=== PATIENT | female | born 1995 | race Caucasian/White ===

== ENCOUNTER 2019-05-24 16:07 | Emergency (ER) | payer OTHER, SELFPAY ==
[2019-05-24 16:10] VITALS: BP 150/90; PULSE 89; RESP 18; TEMP 36.2; O2SAT 100
--- NOTE | 2019-05-24 16:43 | ED.GENADULT ---
HPI - General Adult General Chief complaint: Skin/Abscess/Foreign Body Stated complaint: ?possible cyst Time Seen by Provider: 05/24/19 16:09 Source: patient Mode of arrival: ambulatory Limitations: no limitations History of Present Illness HPI narrative: Patient is a 23-year-old female who presents to emergency department for evaluation of wound to the labia patient notes she has had similar occurrence in the past requiring I&D patient denies any fever chills nausea vomiting or URI symptoms patient notes moderate aching pain worse with touch and activity has not been seen for this complaint and 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 GASTROINTESTINAL: Denies nausea, vomiting SKIN: Positive for labial wound MUSCULOSKELETAL: Denies back pain, or myalgia. PMFSH Social History Social History (Updated 05/24/19 @ 16:45 by Raimundo Catalan PA-C) Smoking status: Former smoker Exam Narrative: Exam Narrative: GENERAL: Well-appearing, well-nourished, and in no acute distress. HEAD: Normocephalic, atraumatic. SKIN: Warm, dry, no rash. Patient with half centimeter labial abscess without erythema or swelling noted labial abscesses on the left in the labia majora NEURO: No focal deficits. Alert and oriented x3. Cranial nerves II through XII grossly intact PSYCH: Normal mood and affect. Course Course Emergency Course: Patient in the room in no distress aware of case findings treatment plan and diagnosis Vital Signs Vital signs: Vital Signs Temperature 97.2 F L 05/24/19 16:10 Pulse Rate 89 05/24/19 16:10 Respiratory Rate 18 05/24/19 16:10 Blood Pressure 150/90 H 05/24/19 16:10 Pulse Oximetry 100 05/24/19 16:10 Temperature 97.2 F L 05/24/19 16:10 Pulse Rate 89 05/24/19 16:10 Respiratory Rate 18 05/24/19 16:10 Blood Pressure 150/90 H 05/24/19 16:10 Pulse Oximetry 100 05/24/19 16:10 Procedures Abscess I/D skin: Date of Incision: 05/24/19 Time of Incision: 16:50 Side (if applicable): left Local Anesthetic: lidocaine 1% Technique: other Irrigation: No Packing used?: iodoform I&D Results: Pus and Blood Complications: pain Medical Decision Making MDM Narrative Medical decision making narrative: Patient had I&D in the room in no distress felt appropriate for outpatient reevaluation Vital Signs Vital Signs: Vital Signs Temperature 97.2 F L 05/24/19 16:10 Pulse Rate 89 05/24/19 16:10 Respiratory Rate 18 05/24/19 16:10 Blood Pressure 150/90 H 05/24/19 16:10 Pulse Oximetry 100 05/24/19 16:10 Temperature 97.2 F L 05/24/19 16:10 Pulse Rate 89 05/24/19 16:10 Respiratory Rate 18 05/24/19 16:10 Blood Pressure 150/90 H 05/24/19 16:10 Pulse Oximetry 100 05/24/19 16:10 Discharge Plan Discharge Clinical Impression: Abscess Patient Disposition: Home, Self-Care Condition: Stable Instructions: Antibiotic Form, Abscess (ED) Additional Instructions: Follow up with primary care in the next 3-5 days for re-evaluation return if symptoms worsen or concerns, any increase in redness swelling pain or fever over 100.5 If packing was placed it must come out in 3 days. Clean wound with mild soapy water. Apply antibiotic ointment and clean dressing at least three times daily Warm compresses 5 times a day for 15 minutes each Prescriptions: New doxycycline hyclate 100 mg capsule 100 mg PO Q12H 7 Days Qty: 14 RF: 0 Follow-up/Referrals: Godwin Reyes MD [Primary Care Provider] -
== END 2019-05-24 17:26 | disposition home or self-care (01) ==
PROVIDERS: Emergency Provider Emergency Medicine; PCP Emergency Medicine
DX: N76.4 Abscess of vulva (principal)
CPT/HCPCS: 56405; 99283; A9270

== ENCOUNTER 2019-05-27 12:41 | Emergency (ER) | payer OTHER, SELFPAY ==
--- NOTE | 2019-05-27 12:49 | ED.GENADULT ---
HPI - General Adult General Chief complaint: Urogenital-Female Stated complaint: cyst on vaginal Time Seen by Provider: 05/27/19 12:45 Source: patient Mode of arrival: ambulatory Limitations: no limitations History of Present Illness HPI narrative: Pt was seen here on 05/23 for bartholin gland cyst. I/D was preformed, no packing placed and pt was started Doxycycline and instructed to follow up with gynecology. The cyst has reaccumulated and is quite painful. She states she was instructed by office to go to ED, that they may not be able to drain in office. Unclear if she spoke with provider. She has no fever. This is the 3rd time she has had an abscess/cyst. Onset (ago): day(s) (3) Location: genitals (labial cyst) Relieving factors: none Exacerbating factors: none Associated symptoms: denies other symptoms Related Data Allergies Allergy/AdvReac Type Severity Reaction Status Date / Time aspirin Allergy Intermediate Rash Verified 05/27/19 13:32 Review of Systems Review of Systems: All systems reviewed & are unremarkable except as noted in HPI and below [facility] Past Medical History Medical History (Updated 05/27/19 @ 14:52 by Jeannette Diehl PA-C) Bartholin cyst Social History Social History Smoking status: Former smoker Exam Const: General: no acute distress and alert Orientation/consciousness: patient oriented x3 Eyes: Pupils: Equal, round and reactive pupils present Resp: Effort & Inspection: normal respiratory effort Cardio: Rate: regular rate Rhythm: regular rhythm GI: GI Palp: Yes Soft to palpation : External Female Exam: lesion (approx 1.5 -2 cm left labia major bartholin gland abscess) Skin: General skin exam: normal color Rashes: no rashes Neuro: General: patient oriented x3 and moves all extremities Extrem: General: normal to inspection Psych: Mental Status: mental status grossly normal Course Course Emergency Course: Patient is very tearful and anxious about this procedure. We were able to express small to moderate amount of pus and blood from the abscess. I was unable to pack it with iodoform gauze. Instructed the patient to do 20 minutes sitz bath's 4 times a day cover the area with antibiotic ointment. And follow-up with Dr. Zacarias's office. I spoke to the office they are able to see her on May 29 at 215. Procedures Abscess I/D bartholin's gland: Date of Incision: 05/27/19 Time of Incision: 14:02 Side (if applicable): left Sedation/analgesia: other (norco 5/325) Local Anesthetic: lidocaine 1% Amount of anesthesia used (mL): 1 Technique: incised with #11 blade Amount of fluid expressed (mL): 0.5 Packing used?: none I&D Results: Pus and Blood Complications: pain Abcess I&D Additional Comments: attempted to pack with 1/4 iodoform but unsuccessful. Warm soak applied and was able to express a small amount after. Discharge Plan Discharge Clinical Impression: Abscess of left Bartholin's gland Patient Disposition: Home, Self-Care Condition: Stable Instructions: Antibiotic Form, Bartholin Cyst (ED) Additional Instructions: Apply warm soaks with your sit in your tub in warm water 20 minutes, 3-4 times a day. After that apply antibiotic ointment to the site. Complete your antibiotics as prescribed. Take pain medication as needed. Follow-up with Dr. Zacarias's office on May 29 at 2:15 PM. Prescriptions: No Action doxycycline hyclate 100 mg capsule 100 mg PO Q12H 7 Days Qty: 14 RF: 0 Follow-up/Referrals: Godwin Reyes MD [Primary Care Provider] - Time of Disposition: 14:52
[2019-05-27 12:57] VITALS: BP 158/91; PULSE 118; RESP 18; O2SAT 100
[2019-05-27 13:34] VITALS: BP 136/91; PULSE 130; RESP 16; O2SAT 100
[2019-05-27] MEDS: LIDOCAINE HCL 1% LOCAL INJ 20 ML VIAL 10 ML INFILTRATE (13:39)
--- NOTE | 2019-05-27 14:01 | PC.NURSE ---
RN assisted PA with vaginal cyst drainage. VSS. Pt tolerated well.
[2019-05-27 15:23] VITALS: BP 143/91; PULSE 100; RESP 18; TEMP 36.9; O2SAT 97
== END 2019-05-27 15:25 | disposition home or self-care (01) ==
PROVIDERS: Emergency Provider Emergency Medicine; PCP Emergency Medicine
DX: N75.1 Abscess of Bartholin's gland (principal); Z87.891 Personal history of nicotine dependence
CPT/HCPCS: 56420; 99283; A9270

== ENCOUNTER → 2020-09-08 02:20 | Outpatient (CLI) | payer SELFPAY ==
[2020-09-08 16:16] LABS: SARS-CoV-2 RNA PCR Negative
== END ==
PROVIDERS: PCP Emergency Medicine; Visit Provider Obstetrics & Gynecology
DX: Z01.812 Encounter for preprocedural laboratory examination (principal); Z20.822 Contact with and (suspected) exposure to COVID-19
CPT/HCPCS: C9803; U0003; U0005

== ENCOUNTER 2020-09-11 00:43 | Day surgery (SDC) | payer OTHER, SELFPAY ==
[2020-09-03 16:39] VITALS: BMI 41.5
--- NOTE | 2020-09-09 07:23 | PM.IMHP ---
H&P: HPI History of Present Illness Date/Time: 09/09/20 07:23 24-year-old 0 admitted for hysteroscopy / dilatation curettage. She complains of excessive heavy bleeding. She underwent ultrasound which showed irregularity of the uterus. Risks and benefits reviewed including but not exclusive of , aspiration pneumonia, bleeding, transfusion, perforation injury with injury to bowel, bladder, etc. She received the ACOG handout entitled hysteroscopy and dilatation and curettage respectively. She had all questions answered and asked to proceed Chief Complaint: excessive heavy bleeding Review of Systems Review of Systems: All systems reviewed & are unremarkable except as noted in HPI and below PMFSH Past Medical History Medical History Bartholin cyst Social History Social History Years smoked: 4 Smoking status: Former smoker Tobacco type: cigarettes Alcohol intake: current Drinks per week: 11 Substance use: never Substance use type: does not use Last use: mar 2020 Gender identity (if verbalized by the patient): Female Spiritual care concerns: No Meds Home Medications and Allergies Home Medications Medication Instructions Recorded Confirmed Type doxycycline hyclate 100 mg PO Q12H 7 Days #14 cap 05/24/19 Rx Women's One Daily 2 tab-cap BYMOUTH DAILY 09/03/20 09/03/20 History ferrous sulfate 325 mg PO 09/03/20 History liraglutide (weight loss) [Saxenda] 3 mg SUBCUT DAILY 09/03/20 09/03/20 History Allergies Allergy/AdvReac Type Severity Reaction Status Date / Time aspirin Allergy Intermediate Rash Verified 09/03/20 16:09 Exam Const: General: no acute distress Eyes: General: appearance normal, both eyes and all related structures Neck: Neck: supple and no JVD Thyroid: thyroid normal Resp: Effort & Inspection: normal respiratory effort Auscultation: clear to auscultation bilaterally Cardio: Rate: regular rate Rhythm: regular rhythm GI: Inspection: non-distended GI Palp: Yes Soft to palpation, No Tenderness to palpation present (GI) and No Guarding due to palpation present (GI) Auscultation: normal bowel sounds : General: Yes bladder normal to palpation External Female Exam: normal external appearance Speculum Exam - Vagina: normal vaginal discharge and No vaginal bleeding Speculum Exam - Cervix: nontender Bimanual exam- vagina & uterus: bladder normal to palpation and No Cervical tenderness present OB/external & speculum: No vaginal bleeding Skin: General skin exam: no rashes or lesions noted Extrem: General: normal to inspection and no edema Psych: Mental Status: mental status grossly normal Affect: normal affect Assessment and Plan Additional Plan impression: Bleeding refractory to medical therapy Plan: Hysteroscopy/ dilatation curettage/polypectomy
--- NOTE | 2020-09-11 05:46 | WPDHPUPDATE1 ---
History and Physical Update Update Date/Time: 09/11/20 05:46 History and Physical has been reviewed, including an updated exam of the patient. There are NO changes in the patient's condition. Risks, benefits, and alternatives have been discussed and questions answered. Patient agrees to proceed with procedure.
[2020-09-11 08:37] VITALS: BP 132/74; PULSE 109; RESP 16; TEMP 37.4; O2SAT 99
[2020-09-11] MEDS: ACETAMINOPHEN 500 MG TABLET 1000 MG PO (08:50)
--- NOTE | 2020-09-11 09:07 | WPDANESEPPF ---
Anes - Initial Pre Proc Eval Procedure: Operation Date: 09/11/20 10:30 Proposed Procedures p Hysteroscopy, Dilation and Curettage, with Polypectomy - Bharath Santoro MD Date/Time: 09/11/20 09:07 Surgeon: Bharath Santoro MD Pre Op Diagnosis: uterine polyp, irregular bleeding Patient Data Age: 24 Gender: F Height: 1.55 m Weight: 97.7 kg Last Vital Signs Temp 37.4 C 09/11/20 08:37 Pulse 109 H 09/11/20 08:37 Resp 16 09/11/20 08:37 BP 132/74 09/11/20 08:37 Pulse Ox 99 09/11/20 08:37 Allergies Allergy/AdvReac Type Severity Reaction Status Date / Time aspirin Allergy Intermediate Rash Verified 09/11/20 08:46 Home Medications Medication Instructions Recorded Confirmed Type doxycycline hyclate 100 mg PO Q12H 7 Days #14 cap 05/24/19 09/11/20 Rx Women's One Daily 2 tab-cap BYMOUTH DAILY 09/03/20 09/11/20 History ferrous sulfate 325 mg PO DAILY 09/03/20 09/11/20 History liraglutide (weight loss) [Saxenda] 3 mg SUBCUT DAILY 09/03/20 09/11/20 History amlodipine 5 mg PO HS 09/11/20 09/11/20 History hydrocodone-acetaminophen 1 tablet PO Q4H PRN #30 tablet 09/11/20 Rx ibuprofen 400 mg PO Q6H 09/11/20 09/11/20 History Patient hx anesthesia problems: none Family hx anesthesia problems: none [facility] Past Medical History Medical History (Updated 09/11/20 @ 09:08 by Bharath Nowak MD) Bartholin cyst HTN (hypertension) Morbid obesity Social History Social History Years smoked: 4 Smoking status: Former smoker Tobacco type: cigarettes Alcohol intake: current Drinks per week: 11 Substance use: never Substance use type: does not use Last use: mar 2020 Living arrangements: with roommate(s) Gender identity (if verbalized by the patient): Female Sexual Orientation (if Verbalized by the Patient): Straight or Heterosexual Spiritual care concerns: No Anes - Eval Final PreProcedure Day of Procedure 09/11/20 09:07 Patient weight: morbidly obese Heart: regular rate and rhythm Lungs: clear to auscultation Airway: Mallampati scale class II Neurological: alert and oriented Last oral intake: >/= 8 hours ASA classification: III Emergent: no Anesthetic plan: proceed Anesthesia type and monitoring: general GIVS and standard monitoring Informed Consent: The patient's anesthetic plan and its attendant risks and benefits were discussed with the patient/family/POA. Questions were solicited and answers provided to the satisfaction of the patient/family/POA.
[2020-09-11] MEDS: LACTATED RINGERS 1,000 ML 30 ML IV CONT (09:09)
[2020-09-11 09:30] LABS: Hemoglobin 14.4 g/dL (12.0-15.0)
[2020-09-11] MEDS: KETOROLAC 30 MG/ML VIAL (*BKC) IV PUSH (11:02)
--- NOTE | 2020-09-11 11:14 | P.OP_ITS ---
Procedure Note - Detailed Date of Procedure 09/11/20 Pre-op Diagnosis uterine polyp, irregular bleeding Post-op Diagnosis same Procedure Performed Hysteroscopy / dilatation curettage/S polypectomy Surgeon Bharath Santoro MD Anesthesia MAC and local Indications S a 24-year-old female with excessive heavy bleeding with suspected uterine polyp Findings uterus sounded to 7cm. A benign-appearing endometrial polyp Description of Procedure patient was prepped draped in the normal sterile fashion and placed in the dorsal lithotomy position. Under excellent IV sedation weighted speculum placed in posterior fornix vagina. Anterior lip of the cervix grasped with single- tooth tenaculum and 2.5cc of 1% xylocaine anesthesia placed at 2, 4, 8, 10:00 a.m. of the cervix. Uterus sounded to 7cm. Serial dilatation with fragmented dilators performed followed by passage of the 5mm visualizing hysteroscope. Normal saline was used as visualizing medium. Small uterine polyp was seen and this was grasped and with a polyp forceps and removed without difficulty. The uterine cavity appeared within normal limits. The uterus was scraped over the entire 360? until a good grating sound was heard. The instruments removed and the patient awakened. Blood loss estimated at5cc. All sponge, needle, instrument counts were correct. There were no immediate complications Estimated Blood Loss 5 Drains No Packing No Pathology yes Complications No immediate complications Condition stable Disposition PACU
[2020-09-11 11:17] VITALS: BP 107/71; PULSE 95; RESP 16; O2SAT 99
[2020-09-11 11:45] VITALS: BP 132/75; PULSE 81; RESP 16
[2020-09-11 12:00] VITALS: BP 117/69; PULSE 80; RESP 14
== END 2020-09-11 12:06 | disposition home or self-care (01) ==
PROVIDERS: PCP Nurse Practitioner Family; Visit Provider Obstetrics & Gynecology
PROC: 0U5B8ZZ Destruction of Endometrium, Via Natural or Artificial Opening Endoscopic (ICD-10-PCS; CPT 58563; principal; 2020-09-11 10:30)
DX: N92.0 Excessive and frequent menstruation with regular cycle (principal); N84.0 Polyp of corpus uteri; I10 Essential (primary) hypertension; Z87.891 Personal history of nicotine dependence; E66.01 Morbid (severe) obesity due to excess calories; Z68.41 Body mass index [BMI] 40.0-44.9, adult
CPT/HCPCS: 58558; 36415; 85014; 85018; 88305; A9270; J1885; J2250; J2405; J2704; J3010; J7030; J7120

== ENCOUNTER 2021-09-29 07:48 | Outpatient (CLI) | payer BC, SELFPAY | END 2021-09-29 07:49 | disposition home or self-care (01) | LOC: ANHSURGERY 07:52 | PROVIDERS: PCP Nurse Practitioner Family; Visit Provider Obstetrics & Gynecology | DX: Z01.812 Encounter for preprocedural laboratory examination (principal); R10.2 Pelvic and perineal pain | CPT/HCPCS: 36415; 86850; 86900; 86901 ==

== ENCOUNTER 2021-10-01 01:33 | Day surgery (SDC) | payer BC, SELFPAY ==
[2021-09-24 15:28] VITALS: BMI 27.6
--- NOTE | 2021-09-24 15:47 | SUR.PREOP ---
Report to the Outpatient Waiting Room, entrance under the green pavilion located off [facility], at time 0600__ on date 10/01/21 . OR Time: _0730 - You and your visitor will be asked a series of questions to screen for COVID 19 for your protection. - Only one visitor is allowed at this time. - The patient visitor is requested to leave or wait in car when not with patient. - A mask is required within the hospital. Patients may have clear liquids (water, carbonated beverages, clear teas, apple juice) until 3 hours prior to surgery with a maximum of 20 ounces. - No food from midnight until time of surgery - Infants may have breast milk until 4 hours before surgery, infant formula 6 hours prior to surgery. - Children will be allowed to drink immediately following surgery. If applicable, please bring a bottle or sippy cup to assist with drinking. Juice, water, soda, and popsicles are readily available. For infants on formula, please bring formula the day of surgery. Pacifiers are allowed. Take the following medications with a SIP of water the morning of surgery: __n/a Medications to discontinue per physician n/a Date to take last dose____n/a Please no make-up, nail nigerien, hairspray, perfume, deodorant, or body powder the day of surgery. No jewelry (including any body piercings) or valuables the day of surgery, leave them at home. Please take a shower or bath the night before, or the morning of, surgery with an antibacterial soap. Wear comfortable, loose fitting clothing. Children are encouraged to wear pajamas. - Jewelry must be removed prior to entering the operating room. Rings and piercings that are not removed may be cut off. - The hospital will not accept responsibility for valuables. - Please leave all valuables, including medications, at home the day of surgery. If you are going home after surgery, a licensed trash truck driver must drive you home. - NO public transportation without another adult. - We recommend that an adult stay with you for 24 hours following discharge. - We also recommend that you do not drive, make important decision, drink alcoholic beverages, or take any drugs that were not prescribed by your health care provider for at least 24 hours after your discharge time. For Pediatric surgeries, we recommend two adults accompany the child home (only one inside the building at this time). Follow any additional instructions given to you from your surgeon. If you or anyone in your household have experienced Covid symptoms in the past week, please notify your surgeon or the nurse liaison at the phone number below for possible testing. Telephone instructions given to _fabien vergara and asked if any additional questions and then verbalized understanding. Patient advised to call surgeon office or pre surgery nurse liaison [phone] if any additional questions.
--- NOTE | 2021-09-29 06:49 | PM.IMHP ---
H&P: HPI History of Present Illness Date/Time: 09/29/21 06:49 Chief Complaint: Pelvic pain. Narrative: A 25-year-old female admitted for diagnostic laparoscopy secondary to severe pelvic pain. She is treated with antibiotics and hormone manipulation but continues to have severe pain. Ultrasound was unhelpful. Risks and benefits reviewed including but not exclusive of , aspiration pneumonia, bleeding, transfusion, perforation injury to bowel, bladder, ureters, or other internal organs with the need for open laparotomy she received the ACOG handout entitled laparoscopy. She had all questions answered. She asked to proceed PMFSH Past Medical History Medical History Bartholin cyst HTN (hypertension) Morbid obesity Social History Social History Years smoked: 4 Smoking status: Former smoker Tobacco type: cigarettes Smoking end date: 03/06/20 Additional smoking assessment comments: / ppd x 7 years Alcohol intake: current Drinks per week: 6 Alcohol use details: weekends Substance use: current Substance use type: marijuana Other substance usage details: smoking occasionally Last use: mar 2020 Gender identity (if verbalized by the patient): Female Sexual Orientation (if Verbalized by the Patient): Straight or Heterosexual Spiritual care concerns: No Meds Home Medications and Allergies Home Medications Medication Instructions Recorded Confirmed Type liraglutide (weight loss) 3 mg/0.5 3 mg subcut DAILY 09/03/20 09/24/21 History mL (18 mg/3 mL) subcut pen injector (Saxenda) amlodipine 5 mg tablet 10 mg PO HS 09/11/20 09/24/21 History ibuprofen 400 mg tablet 400 mg PO PRN 09/11/20 09/24/21 History Allergies Allergy/AdvReac Type Severity Reaction Status Date / Time No Known Allergies Allergy Verified 09/24/21 15:05 Exam : Speculum Exam - Cervix: normal appearance of the cervix Bimanual exam- vagina & uterus: Cervical tenderness present and Uterine tenderness Assessment and Plan Assessment and plan (1) Pelvic pain: Code(s): R10.2 - Pelvic and perineal pain Status: Acute Plan diagnostic laparoscopy
[2021-10-01] VITALS (8 sets, daily range): BP systolic 112–120; BP diastolic 60–74; PULSE 82–103; RESP 13–18; TEMP 36.5–37.3; O2SAT 100
[2021-10-01] MEDS: ACETAMINOPHEN 500 MG TABLET 1000 MG PO (06:23)
[2021-10-01] MEDS: LACTATED RINGERS 1,000 ML 30 ML IV CONT ×2 (06:30→07:56)
--- NOTE | 2021-10-01 06:41 | WPDHPUPDATE1 ---
History and Physical Update Update Date/Time: 10/01/21 06:41 History and Physical has been reviewed, including an updated exam of the patient. There are NO changes in the patient's condition. Risks, benefits, and alternatives have been discussed and questions answered. Patient agrees to proceed with procedure.
--- NOTE | 2021-10-01 06:45 | WPDANESEPPF ---
Anes - Initial Pre Proc Eval Procedure: Operation Date: 10/01/21 07:30 Proposed Procedures p Diagnostic Laparoscopy, Incisional and Drainage Bartholin Cyst - Bharath Beach MD Date/Time: 10/01/21 06:45 Surgeon: Bharath Beach MD Pre Op Diagnosis: pelvic pain Patient Data Age: 25 Gender: F Height: 1.55 m Weight: 69.9 kg Last Vital Signs Temp 37.3 C 10/01/21 06:37 Pulse 103 H 10/01/21 06:37 Resp 16 10/01/21 06:37 BP 120/67 10/01/21 06:37 Pulse Ox 100 10/01/21 06:37 O2 Del Method Room Air 10/01/21 06:37 Allergies Allergy/AdvReac Type Severity Reaction Status Date / Time No Known Allergies Allergy Verified 10/01/21 06:15 Home Medications Medication Instructions Recorded Confirmed Type liraglutide (weight loss) 3 mg/0.5 3 mg subcut DAILY 09/03/20 10/01/21 History mL (18 mg/3 mL) subcut pen injector (Saxenda) amlodipine 5 mg tablet 10 mg PO HS 09/11/20 10/01/21 History ibuprofen 400 mg tablet 400 mg PO PRN 09/11/20 10/01/21 History hydrocodone 5 mg-acetaminophen 325 1 tablet PO Q4H PRN pain #30 tabs 10/01/21 Rx mg tablet Patient hx anesthesia problems: none Family hx anesthesia problems: none Results Review: All pre-operative results and documents have been reviewed as part of the pre-operative evaluation. [facility] Past Medical History Medical History (Updated 10/01/21 @ 06:46 by Bharath Nowak MD) Bartholin cyst HTN (hypertension) Overweight Surgical History Surgical History (Updated 10/01/21 @ 06:46 by Bharath Nowak MD) History of D&C Social History Social History Years smoked: 4 Smoking status: Former smoker Tobacco type: cigarettes Smoking end date: 03/06/20 Additional smoking assessment comments: 03/09 ppd x 7 years Alcohol intake: current Drinks per week: 6 Alcohol use details: weekends Substance use: current Substance use type: marijuana Other substance usage details: smoking occasionally Last use: mar 2020 Living arrangements: with family Gender identity (if verbalized by the patient): Female Sexual Orientation (if Verbalized by the Patient): Straight or Heterosexual Spiritual care concerns: No Anes - Eval Final PreProcedure Day of Procedure 10/01/21 06:45 Patient weight: overweight Heart: regular rate and rhythm Lungs: clear to auscultation Airway: Mallampati scale class II Neurological: alert and oriented Last oral intake: >/= 8 hours ASA classification: II Emergent: no Anesthetic plan: proceed Anesthesia type and monitoring: general ETT and standard monitoring Results Review: All pre-operative results and documents have been reviewed as part of the pre-operative evaluation. Informed Consent: The patient's anesthetic plan and its attendant risks and benefits were discussed with the patient/family/POA. Questions were solicited and answers provided to the satisfaction of the patient/family/POA.
--- NOTE | 2021-10-01 06:56 | WPDHPUPDATE1 ---
History and Physical Update Update Date/Time: 10/01/21 06:56 History and Physical has been reviewed, including an updated exam of the patient. There are NO changes in the patient's condition. Risks, benefits, and alternatives have been discussed and questions answered. Patient agrees to proceed with procedure. The patient will also undergo bilateral incision and drainage of Bartholin cyst risks and benefits reviewed
[2021-10-01] MEDS: KETOROLAC 15 MG/ML VIAL (*BKC) IV PUSH (07:01)
--- NOTE | 2021-10-01 07:54 | W.PM.PROC2 ---
Procedure Note - Detailed Date of Procedure 10/01/21 Pre-op Diagnosis pelvic pain Post-op Diagnosis Other (Bilateral ovarian cysts. Endometriosis. Bilateral labial abscesses) Procedure Performed Diagnostic laparoscopy. Destruction of bilateral ovarian cysts. Destruction of endometriosis. I and D of bilateral labial cyst Surgeon Bharath Beach MD Anesthesia General Indications This is 25-year-old with pelvic pain and bilateral labial cyst. Findings Bilateral follicular cyst. Endometriosis was seen on the right ovary in the form of small powder burn areas. Normal-appearing gallbladder and liver edge. Two small labial abscesses were noted. Description of Procedure Patient was prepped draped in normal sterile fashion placed in the dorsal lithotomy position. Under excellent general trach anesthesia weighted speculum placed in posterior fornix vagina. Anterior lip of the cervix grasped with single-tooth tenaculum. The bladder was drained of clear urine and the weighted speculum was removed. Gloves were changed. An infraumbilical incision made. Veress needle passed in the abdomen. Abdomen filled with CO2 gas [id number]. The 5mm trocar advanced under the Optiview in no injury seen. Patient placed in Trendelenburg and a suprapubic incision made. The 5mm trocar advanced under direct visualization assuring no injury. A 10cc of serosanguineous fluid was seen in the cul-de-sac and this was drained. There were bilateral follicular cysts and these were point cauterized at 35 w per 2nd with monopolar cautery. Two small areas of endometriosis on the right ovary were noted and these were burned at 35 w per 2nd. Photo documentation was undertaken and no other abnormality seen. Lower site removed. The gas removed from the abdomen. The incisions closed with 4 Monocryl and glue. Attention was turned to the labial cyst. The previous instruments in the vagina were removed. Each was stabbed with an 11 blade and drained of purulent fluid. Blood loss for the entire procedure was noted to be about 5cc. Sponge, needle, instrument counts were correct. There were no immediate complications Estimated Blood Loss 5 Drains No Packing No Pathology None sent Complications No immediate complications Condition Stable Disposition PACU
[2021-10-01] MEDS: fentaNYL CITRATE INJ (*CRX) 100 MCG/2 ML VIAL 25 MCG IV PUSH ×3 (08:12→08:29)
[2021-10-01] MEDS: oxyCODONE HCL (*CRX) 5 MG TAB IR PO (09:21)
== END 2021-10-01 09:50 | disposition home or self-care (01) ==
PROVIDERS: PCP Nurse Practitioner Family; Visit Provider Obstetrics & Gynecology
PROC: (CPT 49320; principal; 2021-10-01 07:30)
DX: R10.2 Pelvic and perineal pain (principal); N83.202 Unspecified ovarian cyst, left side; N83.201 Unspecified ovarian cyst, right side; N80.1 Endometriosis of ovary; N90.7 Vulvar cyst; I10 Essential (primary) hypertension; E66.9 Obesity, unspecified; Z68.29 Body mass index [BMI] 29.0-29.9, adult; Z87.891 Personal history of nicotine dependence; F12.90 Cannabis use, unspecified, uncomplicated
CPT/HCPCS: 58662; 10061; 36415; 86850; 86900; 86901; A9270; J0330; J1100; J1885; J2250; J2405; J2704; J3010; J7030; J7120

== ENCOUNTER 2023-08-24 19:09 | Emergency (ER) | payer BC, SELFPAY ==
--- NOTE | 2023-08-24 19:12 | PC.NURSE ---
Pt to intake desk - am i going to be waiting out here like all these other people for hours? Does it not matter that I am 26 weeks ? This RN informed the patient that she would be called by to be triaged and at that time evaluated to determine where she would need to fall in line. Pt verbalized I am going some where else, I can not wait forever like everyone else. You can cut this band off me now. Pt then shoved her arm across triage desk into this RN facial area.
== END 2023-08-24 20:12 | disposition left against medical advice (07) ==
LOC: ANHED 19:32
DX: Z53.21 Procedure and treatment not carried out due to patient leaving prior to being seen by health care provider (principal)
CPT/HCPCS: 99199

== ENCOUNTER 2023-08-24 19:20 | Outpatient (CLI) | payer BC, MEDICAID, SELFPAY ==
[2023-08-24 19:30] VITALS: BMI 42.1
[2023-08-24 20:15] VITALS: BP 124/76; PULSE 79
[2023-08-24 20:20] LABS: Basophils Percent Auto 0.3 % (0.2-1.2); Eosinophils Percent Auto 0.5 % (0-4.4); Hematocrit 32.9 % (37.0-47.0); Hemoglobin 11.3 g/dL (12.0-15.0); Immature Granulocyte Absolute 0.09 K/mm3 (0.00-0.031); Immature Granulocyte Percent A 1.2 % (0-0.5); Lymphocytes Absolute Auto 1.72 K/mm3 (0.9-3.2); Lymphocytes Percent Auto 22.8 % (18.3-44.2); Mean Corpuscular HGB Conc 34.3 g/dl (32-36); Mean Corpuscular Hemoglobin 32.9 pg (26-34); Mean Corpuscular Volume 95.9 fl (80-100); Mean Platelet Volume 10.4 fl (7.4-10.4); Monocytes Absolute Auto 0.6 K/mm3 (0.1-0.6); Monocytes Percent Auto 7.9 % (2.6-8.5); Neutrophils Absolute Auto 5.1 K/mm3 (1.3-6.7); Neutrophils Percent Auto 67.3 % (45.5-73.1); Platelet Count Result 208 k/mm3 (150-375); Red Blood Count 3.43 M/mm3 (4.2-5.4); Red Cell Distribution Width 13.1 % (11.5-14.5); White Blood Count 7.6 K/mm3 (4.5-10.0)
[2023-08-24 20:21] LABS: Appearance Urine Clear (Clear); Bilirubin Urine Negative (Negative); Blood Urine Negative (Negative); Color Urine Yellow (Yellow); Glucose Urine UA Negative (Negative); Ketones Urine Trace mg/dL (Negative); Leukocyte Esterase Ur Negative LEU/UL (Negative); Nitrate Urine Negative (Negative); Protein Urine Negative (Negative); Specific Grav Ur 1.005 (1.001-1.035); Urobilinogen Urine 0.2 mg/dL (<2.0)
[2023-08-24 20:22] LABS: Add Urine Microscopic? NO
[2023-08-24 20:27] LABS: Creatinine Urine 35.4 mg/dL; Total Protein Urine Random 12 mg/dL; Ur Ttl Prot Creatinine Ratio 0.34 mg/mg (0-0.20)
[2023-08-24 20:29] LABS: Alanine Aminotransferase 25 U/L (6-35); Albumin Level 3.7 g/dL (3.5-5.1); Alkaline Phosphatase 71 U/L (38-126); Anion Gap 5 mmol/L (4-12); Aspartate Amino Transferase 38 U/L (14-36); Bilirubin,Total 0.3 mg/dL (0.2-1.3); Blood Urea Nitrogen 8 mg/dL (7-17); Calcium 8.7 mg/dL (8.4-10.2); Carbon Dioxide 23 mmol/L (22-30); Chloride 106 mmol/L (98-107); Estimated Glomerular Filt Rate > 60; Glucose 82 mg/dL (65-110); Potassium 3.3 mmol/L (3.4-5.0); Sodium 134 mmol/L (137-145); Uric Acid 3.8 mg/dL (2.5-7.5)
[2023-08-24 20:30] VITALS: BP 131/76; PULSE 74
[2023-08-24 20:45] VITALS: BP 121/68; PULSE 77
[2023-08-24 21:00] VITALS: BP 128/62; PULSE 79
--- NOTE | 2023-08-24 21:00 | PC.NURSE ---
Called Dr. Arora with pt status. Informed of lab results and BPs. Pt states that she took her Labetalol prescription at 1815. Tracing with 2 variable decelerations noted at beginning with 10x10 accels after and gesational age of 26weeks. Intermittent FHTs on tracing due to gestational age and anterior placenta. July D/C home. Return to office next week for repeat labs.
== END 2023-08-24 21:05 | disposition home or self-care (01) ==
LOC: ANHOBOP 19:33 → ANHOBPP 19:34
PROVIDERS: Obstetrics & Gynecology; PCP Obstetrics & Gynecology; Visit Provider Obstetrics & Gynecology
DX: O13.9 Gestational [pregnancy-induced] hypertension without significant proteinuria, unspecified trimester (principal); R42 Dizziness and giddiness; Z3A.00 Weeks of gestation of pregnancy not specified
CPT/HCPCS: 36415; 59025; 80053; 81003; 82570; 84156; 84550; 85025; 99199

== ENCOUNTER 2023-08-29 10:50 | Outpatient (CLI) | payer BC, MEDICAID, SELFPAY ==
--- NOTE | 2023-08-29 | ECG_ITS ---
Test Date: 2023-08-29 11:07:10 Measurements Intervals [place] Rate: 81 P: 31 MT: 124 QRS: 18 QRSD: 88 T: 17 QT: 345 QTc: 402 Interpretive Statements SINUS RHYTHM No previous ECG available for comparison Electronically Signed On 08-29-2023 13:39:03 CDT by Chapis Lozada M.D.
== END 2023-08-29 10:51 | disposition home or self-care (01) ==
LOC: ANHIMG 10:53 → ANHCARD 10:53
PROVIDERS: PCP Obstetrics & Gynecology; Visit Provider Obstetrics & Gynecology
DX: O36.832 Maternal care for abnormalities of the fetal heart rate or rhythm, second trimester (principal)
CPT/HCPCS: 93005

== ENCOUNTER 2023-09-13 08:03 | Outpatient (RCR) | payer BC, MEDICAID, SELFPAY ==
--- NOTE | ~2023-09-13 | US_ITS ---
Biophysical profile. (Doppler ultrasound interrogation techniques used as needed for this exam.) Ordering provider: Bharath Beach MD History: . Decreased movement, variables . Comparison: None. Findings: Single intrauterine fetus with heart rate measured at 147 bpm which is within normal limits. Presentation: Vertex. Longitudinal lie. Amniotic fluid volume is subjectively within normal limits. Largest pocket is 4.4 cm. The placenta is anterior fundal. SCORE: breathing movements: 2 movements: 2 tone: 2 Amniotic fluid volume: 2 Total: 8 IMPRESSION: Normal biophysical profile. Reviewed, dictated and finalized at location A. IMPRESSION: Normal biophysical profile.
[2023-09-13 09:15] VITALS: BP 117/68; PULSE 89
== END 2023-12-12 23:59 | disposition home or self-care (01) ==
LOC: ANHOBOP 08:03
PROVIDERS: PCP Obstetrics & Gynecology; Visit Provider Obstetrics & Gynecology
DX: O36.8130 Decreased fetal movements, third trimester, not applicable or unspecified (principal); Z3A.29 29 weeks gestation of pregnancy
CPT/HCPCS: 59025; 76819

== ENCOUNTER 2023-11-22 18:37 | Inpatient (IN) | payer BC, MEDICAID, SELFPAY ==
[2023-11-22] VITALS (10 sets, daily range): BP systolic 112–141; BP diastolic 43–78; PULSE 87–105; TEMP 36.9; BMI 45.8
[2023-11-22 19:14] LABS: Basophils Percent Auto 0.4 % (0.2-1.2); Eosinophils Percent Auto 0.4 % (0-4.4); Hematocrit 31.7 % (37.0-47.0); Hemoglobin 10.7 g/dL (12.0-15.0); Immature Granulocyte Absolute 0.02 K/mm3 (0.00-0.031); Immature Granulocyte Percent A 0.3 % (0-0.5); Lymphocytes Absolute Auto 1.52 K/mm3 (0.9-3.2); Lymphocytes Percent Auto 20.7 % (18.3-44.2); Mean Corpuscular HGB Conc 33.8 g/dl (32-36); Mean Corpuscular Hemoglobin 32.1 pg (26-34); Mean Corpuscular Volume 95.2 fl (80-100); Monocytes Absolute Auto 0.6 K/mm3 (0.1-0.6); Monocytes Percent Auto 7.5 % (2.6-8.5); Neutrophils Absolute Auto 5.2 K/mm3 (1.3-6.7); Neutrophils Percent Auto 70.7 % (45.5-73.1); Platelet Count Result 200 k/mm3 (150-375); Red Blood Count 3.33 M/mm3 (4.2-5.4); Red Cell Distribution Width 13.2 % (11.5-14.5); White Blood Count 7.4 K/mm3 (4.5-10.0)
[2023-11-22] MEDS: DINOPROSTONE 10 MG VAG INSERT VAGINAL (19:28)
[2023-11-22 19:35] LABS: Alanine Aminotransferase 33 U/L (6-35); Albumin Level 3.6 g/dL (3.5-5.1); Alkaline Phosphatase 122 U/L (38-126); Anion Gap 8 mmol/L (4-12); Aspartate Amino Transferase 36 U/L (14-36); Bilirubin,Total 0.2 mg/dL (0.2-1.3); Blood Urea Nitrogen 15 mg/dL (7-17); Calcium 9.2 mg/dL (8.4-10.2); Carbon Dioxide 20 mmol/L (22-30); Chloride 107 mmol/L (98-107); Estimated Glomerular Filt Rate > 60; Glucose 113 mg/dL (65-110); Potassium 3.5 mmol/L (3.4-5.0); Sodium 135 mmol/L (137-145)
--- NOTE | 2023-11-22 19:40 | LDADM ---
This patient, Zandra Rice, was admitted to Labor/Delivery/Recovery 104 on 11/22/23 at 18:37. Plans for labor, pain management and were discussed with patient. Patient/family oriented to hospital policies and general routines including ID bracelet, bed and alarms, visiting hours, pain management, procedures, bathroom and other care routines, personal items, smoking policy, room service/diet and guest tray routines, security routines, and visiting hours. Patient/Family are encouraged to report perceived risks to care and to ask questions if they do not understand what they are told or what they should do. See OBIX for further documentation.
[2023-11-22 20:12] LABS: HIV 1/2 Ab P24 Ag Result Negative (Negative)
[2023-11-22 20:32] LABS: Rapid Plasma Reagin Non-Reactive (NonReactive)
[2023-11-22] MEDS: ZOLPIDEM TARTRATE (*CRX) 5 MG TABLET PO (21:59)
[2023-11-23] VITALS (206 sets, daily range): BP systolic 76–145; BP diastolic 35–87; PULSE 68–254; RESP 16–18; TEMP 36.8–38.2; O2SAT 96–100
--- NOTE | 2023-11-23 05:05 | PM.IMHP ---
H&P: HPI History of Present Illness Date/Time: 11/23/23 05:05 Chief Complaint: term /chronic hypertension Narrative: 28-year-old 1 para 0 at 39 weeks gestation for induction of labor. She is chronically hypertensive. This her blood pressures have been rising. She is admitted for induction of labor secondary to these elevated blood pressures. Her group B strep screen is negative PMFSH Past Medical History Medical History (Updated 11/23/23 @ 05:08 by Bharath Beach MD) Bartholin cyst HTN (hypertension) Overweight Surgical History Surgical History History of D&C Family History Family History Father Hypertension Diabetes mellitus Atrial fibrillation Mother Kidney failure Social History Social History Years smoked: 4 Smoking status: Former smoker Tobacco type: cigarettes Second hand tobacco smoke exposure: Yes Smoking end date: 03/06/20 Additional smoking assessment comments: 03/09 ppd x 7 years Alcohol intake: current Drinks per week: 6 Alcohol use details: weekends Substance use: never Substance use type: marijuana Other substance usage details: smoking occasionally Last use: mar 2020 Do You Feel Safe in your Home?: Yes Lack of Transportation: No Lack of Food: Never True Current Housing: I Have Housing Concerned About Future Housing: No Difficulty Paying Gas/Electric Bills: No Difficulty Paying for Meds: No Currently Unemployed: No Education: High School Diploma/GED Difficulty w/ Childcare or Family Care: No Living arrangements: with family Gender identity (if verbalized by the patient): Female Sexual Orientation (if Verbalized by the Patient): Straight or Heterosexual Spiritual care concerns: No Meds Home Medications and Allergies Home Medications Medication Instructions Recorded Confirmed Type labetalol 200 mg tablet 200 mg DAILY 11/09/23 11/09/23 History prenat.vits,jose,vai-coan-uzohm 1 tablet PO DAILY 11/09/23 11/22/23 History Allergies Allergy/AdvReac Type Severity Reaction Status Date / Time No Known Allergies Allergy Verified 11/22/23 20:10 Vital Signs Vital Signs - 24 hr 11/22/23 18:54 11/22/23 19:01 11/22/23 19:16 Temperature Pulse Rate 105 H 95 95 Blood Pressure 134/78 141/70 H 129/68 Pulse Oximetry Oxygen Delivery 11/22/23 19:31 11/22/23 19:30 11/22/23 20:01 Temperature 98.4 F Pulse Rate 104 H 91 Blood Pressure 137/73 124/43 L Pulse Oximetry Oxygen Delivery 11/22/23 20:04 11/22/23 20:31 11/22/23 21:01 Temperature Pulse Rate 87 91 102 H Blood Pressure 131/60 130/64 112/49 L Pulse Oximetry Oxygen Delivery 11/22/23 21:30 11/23/23 02:10 11/22/23 19:34 Temperature Pulse Rate 93 Blood Pressure 121/64 Pulse Oximetry 99 Oxygen Delivery Room Air Exam Const: General: cooperative, healthy appearing and comfortable Nutritional Appearance: overweight Orientation/consciousness: oriented to person, oriented to place and oriented to time Resp: Effort & Inspection: normal respiratory effort Cardio: Rate: regular rate Rhythm: regular rhythm Heart sounds: S1 normal heart sound present and S2 normal heart sound present GI: Inspection: normal to inspection ( uterus soft and gravid) : External Female Exam: normal external appearance Speculum Exam - Vagina: normal appearance of the vagina Speculum Exam - Cervix: normal appearance of the cervix ( cervix 1cm thick / -2. FHT is reassuring) H&P: Results Labs Labs: Short CBC 11/22/23 Range/Units 18:58 WBC 7.4 (4.5-10.0) K/mm3 Hgb 10.7 L (12.0-15.0) g/dL Hct 31.7 L (37.0-47.0) % Plt Count 200 (150-375) k/mm3 [facility] 11/22/23 18:58 Sodium 135 L Potassium 3.5 Chloride 107 Carbon
--- NOTE | 2023-11-23 05:34 | WPDANESEPP ---
Anes - Eval Pre Procedure Procedure: Labor Epidural Date/Time: 11/23/23 05:34 Surgeon: J Luis Preop Diagnosis: Labor Pain Pre Op Diagnosis: Induction of Labor Patient Data Age: 28 Gender: F Height: 1.55 m Weight: 110 kg Last Vital Signs Temp 36.9 C 11/22/23 19:30 Pulse 88 11/23/23 05:31 BP 121/64 11/23/23 05:31 Pulse Ox 99 11/23/23 02:10 O2 Del Method Room Air 11/22/23 19:34 Allergies Allergy/AdvReac Type Severity Reaction Status Date / Time No Known Allergies Allergy Verified 11/22/23 20:10 Home Medications Medication Instructions Recorded Confirmed Type labetalol 200 mg tablet 200 mg DAILY 11/09/23 11/09/23 History prenat.vits,jose,drt-ccgt-xrqnv 1 tablet PO DAILY 11/09/23 11/22/23 History Laboratory Tests 11/22/23 11/22/23 18:58 18:58 WBC 7.4 K/mm3 (4.5-10.0) RBC 3.33 L M/mm3 (4.2-5.4) Hgb 10.7 L g/dL (12.0-15.0) Hct 31.7 L % (37.0-47.0) MCV 95.2 fl (80-100) MCH 32.1 pg (26-34) MCHC 33.8 g/dl (32-36) RDW 13.2 % (11.5-14.5) Plt Count 200 k/mm3 (150-375) MPV 11.0 H fl (7.4-10.4) Immature Gran % (Auto) 0.3 % (0-0.5) Neut % (Auto) 70.7 % (45.5-73.1) Lymph % (Auto) 20.7 % (18.3-44.2) [place] % (Auto) 7.5 % (2.6-8.5) Eos % (Auto) 0.4 % (0-4.4) Baso % (Auto) 0.4 % (0.2-1.2) Lymph # (Auto) 1.52 K/mm3 (0.9-3.2) [place] # (Auto) 0.6 K/mm3 (0.1-0.6) Eos # (Auto) 0.0 K/mm3 (0-0.3) Baso # (Auto) 0.0 K/mm3 (0.0-0.1) Abs Immat Gran (auto) 0.02 K/mm3 (0.00-0.031) Absolute Neuts (auto) 5.2 K/mm3 (1.3-6.7) Absolute Nucleated RBC 0.000 K/mm3 (0.0-0.012) Nucleated RBC % 0.0 % (0.0-0.2) Sodium 135 L mmol/L (137-145) Potassium 3.5 mmol/L (3.4-5.0) Chloride 107 mmol/L (98-107) Carbon Dioxide 20 L mmol/L (22-30) Anion Gap 8 mmol/L (4-12) BUN 15 D mg/dL (7-17) Creatinine 0.70 mg/dL (0.7-1.0) Estim Creat Clear Calc Not Reportable Estimated GFR > 60 (59 - ) Glucose 113 H mg/dL (65-110) Uric Acid Cancelled 5.0 mg/dL (2.5-7.5) Calcium 9.2 mg/dL (8.4-10.2) Total Bilirubin 0.2 mg/dL (0.2-1.3) AST 36 U/L (14-36) ALT 33 U/L (6-35) Alkaline Phosphatase 122 U/L (38-126) Total Protein 7.0 g/dL (6.3-8.2) Albumin 3.6 g/dL (3.5-5.1) RPR Non-reactive (NonReactive) HIV 1&2 Ab/P24 Ag 4thGn Negative (Negative) Blood Type O Positive Antibody Screen Negative : gestational age (, SHELLI 11/28/23) Patient hx anesthesia problems: none Family hx anesthesia problems: none Results Review: All pre-operative results and documents have been reviewed as part of the pre-operative evaluation. ON LICENSE OF [facility] Past Medical History Medical History Bartholin cyst HTN (hypertension) Overweight Surgical History Surgical History History of D&C Family History Family History Father Hypertension Diabetes mellitus Atrial fibrillation Mother Kidney failure Social History Social History Years smoked: 4 Smoking status: Former smoker Tobacco type: cigarettes Second hand tobacco smoke exposure: Yes Smoking end date: 03/06/20 Additional smoking assessment comments: 03/09 ppd x 7 years Alcohol intake: current Drinks per week: 6 Alcohol use details: weekends Substance use: never Substance use type: marijuana Other substance usage details: smoking occasionally Last use: mar 2020 Do You Feel Safe in your Home?: Yes Lack of Transportation: No Lack of Food: Never [place]
[2023-11-23] MEDS: LACTATED RINGERS 1,000 ML 125 ML IV CONT ×4 (05:55→21:59)
[2023-11-23] MEDS: OXYTOCIN 30 UNITS/NS 500 ML 30 UNITS/500 ML BAG 6 UNITS IV CONT (05:56)
--- NOTE | 2023-11-23 11:34 | PM.OBPNLAB ---
Pain Control Date/time seen: 11/23/23 11:34 Pain control: tolerating well Pelvic Exam Dilation (cm): 2 Effacement (%): 50 station: -2 Amniotic membrane status: Leaking (begin amnioinfusion)
[2023-11-23] MEDS: SODIUM CHLORIDE 0.9% IV 300 ML 600 ML I-UTERINE (11:35)
[2023-11-23] MEDS: SODIUM CHLORIDE 0.9% IV 1,000 ML 150 ML I-UTERINE (12:09)
--- NOTE | 2023-11-23 16:22 | PM.OBPNLAB ---
Pain Control Date/time seen: 11/23/23 16:22 Pain control: tolerating well and epidural Pelvic Exam Dilation (cm): 2 Effacement (%): 50 station: -2 Amniotic membrane status: Leaking (begin amnioinfusion)
[2023-11-23] MEDS: ACETAMINOPHEN 500 MG TABLET 1000 MG (19:16)
[2023-11-23] MEDS: AMPICILLIN 2 GM/NS 100 ML 2 GM/100 ML BAG IVPB (19:16)
[2023-11-23] MEDS: ONDANSETRON INJ 4 MG/2 ML VIAL IV PUSH (20:25)
[2023-11-23] MEDS: FAMOTIDINE 20 MG/2 ML VIAL IV PUSH (20:25)
--- NOTE | 2023-11-23 20:44 | WPDHPUPDATE1 ---
History and Physical Update Update Date/Time: 11/23/23 20:44 History and Physical has been reviewed, including an updated exam of the patient. There are NO changes in the patient's condition. Risks, benefits, and alternatives have been discussed and questions answered. Patient agrees to proceed with procedure. Patient's temperature is variable decelerations there has been very cervical change despite contractions pressure was offered low-transverse section. Risks and benefits patient asked to proceed
[2023-11-23] MEDS: AZITHROMYCIN 500 MG/NS 250 ML 500 MG/250 ML BAG 250 MG IVPB (20:46)
--- NOTE | 2023-11-23 21:02 | P.PNAN_ITS ---
Anes - Eval Final PreProcedure Day of Procedure 11/23/23 21:02 Patient weight: morbidly obese Heart: regular rate and rhythm Lungs: clear to auscultation and normal air movement Airway: Mallampati scale class II Neurological: alert and oriented Last oral intake: >/= 8 hours ASA classification: III Emergent: no Anesthetic plan: proceed Anesthesia type and monitoring: regional spinal and standard monitoring Other findings: To C/S Results Review: All pre-operative results and documents have been reviewed as part of the pre- operative evaluation. Informed Consent: The patient's anesthetic plan and its attendant risks and benefits were discussed with the patient/family/POA. Questions were solicited and answers provided to the satisfaction of the patient/family/POA.
--- NOTE | 2023-11-23 21:31 | P.PCNOB_ITS ---
OB - Delivery Note Procedure Delivery date: 11/23/23 Pre-op diagnosis: Arrest of Decent and Chronic Hypertension Post-op Diagnosis: Same Induction method: Per Cervidil Protocol Delivery augmentation: Rupture of Membranes and Pitocin Delivery monitor: External FHT, External Uterine, Internal FHT and Internal Uterine Prior to decision for section, ACOG/SM labor guidelines were considered and discussed with the patient and staff. Decision made to proceed with the section.: Yes Procedure Performed: Primary Surgeon: Bharath Beach MD Anesthesia type: Epidural Description of Procedure/Findings: For induction of labor. Artificial rupture membranes performed in the early a.m. after Cervidil induction she progressed very slow 1st stage of labor get about 4+ cm and had recurrent variable discolorations as well as no change after several hours of documented adequate contractions her temperature was elevated as well. She was taken back and prepped and draped in the normal sterile fashion placed in the supine position. Under excellent epidural anesthesia the abdomen was entered in Pfannenstiel fashion progressive layers of fascia. Fascia incised midline carried in upward outward fashion bilaterally. Parietal peritoneum awake a clamps and by sharp dissection. This was carried superiorly and inferiorly to the dome of the bladder. Bladder blade was placed. Bladder flap was formed. Bladder blade returned. Transverse incision made the head delivered in the MAREK position. Nuchal cord was noted be loose x1 removed from the occiput. Anterior posterior shoulder delivered spontaneously. Cord clamped x2 and cut infant passed off the table with an excellent cry given Apgars of 8 and 9 at and 5minutes . Placenta was delivered intact the spontaneously. After assuring no membranes or debris were remained in the uterus, the uterus closed continuous running locking 0 Vicryl from lateral edge to lateral edge. This followed by 2nd imbricating running locking 0 Vicryl from lateral edge to lateral edge. Hemostasis was assured the uterus returned the abdomen after noting normal ovaries and tubes. The uterus hysterotomy incision was inspected 1 last time to be hemostatic. Laps removed and accounted for. The fascia closed with continuous running 0 Vicryl from lateral edge to lateral edge. Irrigation subcutaneous layer the skin closed with 4 Monocryl and glue QBL was 640cc. All sponge, needle instrument counts were correct. There were no immediate complications Specimen: No Estimated Blood Loss: 640 Drains: No Packing: No Pathology: None sent Complications: No immediate complications Condition: Stable Disposition: Floor [place] Baby Date of : 11/23/23 Time of : 06:40 Gestational Age by Date: 39 gender: Female Weight (pounds): 6 Weight (ounces): 3 presentation: vertex position: Left Occiput Anterior Placenta delivery description: Spontaneous Cord Vessel Description: 3 Vessels, Nuchal Cord, Loose and Reduced score one minute: 8 score five minutes: 9
--- NOTE | 2023-11-23 21:36 | PM.DS ---
DS: Admitting Diagnosis Discharge Date 11/25/23 <Zenobia Nguyen MD - Last Filed: 11/25/23 09:49> Admitting Diagnosis term /gestational hypertension <Bharath Beach MD - Last Filed: 11/27/23 06:59> DS: Discharge Diagnosis Discharge Diagnosis (1) HTN (hypertension): Code(s): I10 - Essential (primary) hypertension <Bharath Beach MD - Last Filed: 11/27/23 06:59> Status: Acute <Bharath Beach MD - Last Filed: 11/27/23 06:59> (2) Term : Code(s): Z34.90 - Encounter for supervision of normal , unspecified, unspecified trimester <Bharath Beach MD - Last Filed: 11/27/23 06:59> Status: Acute <Bharath Beach MD - Last Filed: 11/27/23 06:59> DS: Summary Hospital Course Reason for hospitalization: patient was admitted for induction of labor 39 weeks gestation secondary to chronic hypertension she failed her induction underwent low-transverse section at [place] at 9:07 p.m. [phone] [id number] <Bharath Beach MD - Last Filed: 11/27/23 06:59> Hospital Course: the patient's hospital course was unremarkable. She remained afebrile. She was up, voiding without difficulty, eating regular diet, ambulating, generally without complaints. <Bharath Beach MD - Last Filed: 11/27/23 06:59> Time Spent with Patient Time attestation: Total time spent providing and/or coordinating discharge services: <Bharath Beach MD - Last Filed: 11/27/23 06:59> Exam Const: General: cooperative, healthy appearing, comfortable and average body habitus <Bharath Beach MD - Last Filed: 11/27/23 06:59> Orientation/consciousness: oriented to person, oriented to place and oriented to time <Bharath Beach MD - Last Filed: 11/27/23 06:59> HENMT: Head: normal to inspection <Bharath Beach MD - Last Filed: 11/27/23 06:59> Resp: Effort & Inspection: normal respiratory effort <Bharath Beach MD - Last Filed: 11/27/23 06:59> Cardio: Rate: regular rate <Bharath Beach MD - Last Filed: 11/27/23 06:59> Rhythm: regular rhythm <Bharath Beach MD - Last Filed: 11/27/23 06:59> Heart sounds: S1 normal heart sound present and S2 normal heart sound present <Bharath Beach MD - Last Filed: 11/27/23 06:59> GI: Inspection: normal to inspection and incision ( Clean dry and intact) <Bharath Beach MD - Last Filed: 11/27/23 06:59> Discharge Plan Discharge Attending physician on discharge: Bharath Smith <Bharath Beach MD - Last Filed: 11/27/23 06:59> Bharath Smith <Zenobia Nguyen MD - Last Filed: 11/25/23 09:49> Discharging Clinician: Bharath Smith <Bharaht Beach MD - Last Filed: 11/27/23 06:59> Bharath Smith <Zenobia Nguyen MD - Last Filed: 11/25/23 09:49> Patient Disposition: Home, Self-Care <Bharath Beach MD - Last Filed: 11/27/23 06:59> Activity: may shower, no straining, may drive after 2 weeks and pelvic rest <Bharath Beach MD - Last Filed: 11/27/23 06:59> may shower, no straining, may drive after 2 weeks and pelvic rest <Zenobia Nguyen MD - Last Filed: 11/25/23 09:49> Diet: heart healthy <Bharath Beach MD - Last Filed: 11/27/23 06:59> heart healthy <Zenobia Nguyen MD - Last Filed: 11/25/23 09:49> Wound Care Instructions: follow printed instructions <Bharath Beach MD - Last Filed: 11/27/23 06:59> follow printed instructions <Zenobia Nguyen MD - Last Filed: 11/25/23 09:49> Discharge Instructions: Education: Mom and Baby Guide Given to: Mother Follow-Up: Call your delivering provider's office for an appointment to be seen in: 1 Week [facility]. Appointment Date/Time: November 27, 2023 at 11:00
[2023-11-23] MEDS: OXYTOCIN 30 UNITS/NS 500 ML 30 UNITS/500 ML BAG 125 UNITS IV CONT (22:00)
[2023-11-23] MEDS: KETOROLAC 15 MG/ML VIAL (*BKC) IV PUSH (22:50)
--- NOTE | 2023-11-23 23:29 | PC.NURSE ---
Addendum entered by She Bermudez RN 11/23/23 23:30: copy of FHT in maternal chart Original Note: 2050- FHT's in OR noted to be in 150's
[2023-11-24] VITALS (9 sets, daily range): BP systolic 99–138; BP diastolic 51–73; PULSE 65–101; RESP 12–18; TEMP 36.4–37.3; O2SAT 98–100
[2023-11-24] MEDS: ACETAMINOPHEN 325 MG TABLET 650 MG PO ×3 (01:31→17:49)
[2023-11-24] MEDS: DEXTROSE 5%/0.45% SOD CHL 1,000 ML 125 ML IV CONT (01:31)
--- NOTE | 2023-11-24 02:55 | PC.NURSE ---
2200- pt arrived to room 284 via stretcher, transferred to bed with use of inflatable mattress. Pt states that she is wanting to sleep and would like kept in nursery tonight and be bottle fed. This RN will atempt to go over admission packet closer to morning. Pericare given by this nurse and Angi AVILA RN.
--- NOTE | 2023-11-24 03:10 | PC.NURSE ---
0310- PT sleeping, explained that I was needing to do pericare and fundal check- pt states she is finally comfortable and does not want to turn over, this nurse pulled out old chux pads and placed new pads between her legs, unable to assess fundus at this time due to pt refusal will attempt again in one hour.
[2023-11-24] MEDS: KETOROLAC 15 MG/ML VIAL (*BKC) IV PUSH ×2 (04:42→17:49)
[2023-11-24] MEDS: LIDOCAINE 5% PATCH 1 PATCH TRANSDERM (04:43)
[2023-11-24 05:22] LABS: Basophils Percent Auto 0.2 % (0.2-1.2); Eosinophils Percent Auto 0.2 % (0-4.4); Hematocrit 28.1 % (37.0-47.0); Hemoglobin 9.1 g/dL (12.0-15.0); Immature Granulocyte Absolute 0.04 K/mm3 (0.00-0.031); Immature Granulocyte Percent A 0.5 % (0-0.5); Lymphocytes Absolute Auto 1.19 K/mm3 (0.9-3.2); Lymphocytes Percent Auto 14.6 % (18.3-44.2); Mean Corpuscular HGB Conc 32.4 g/dl (32-36); Mean Corpuscular Hemoglobin 31.8 pg (26-34); Mean Corpuscular Volume 98.3 fl (80-100); Mean Platelet Volume 11.3 fl (7.4-10.4); Monocytes Absolute Auto 0.4 K/mm3 (0.1-0.6); Monocytes Percent Auto 5.4 % (2.6-8.5); Neutrophils Absolute Auto 6.5 K/mm3 (1.3-6.7); Neutrophils Percent Auto 79.1 % (45.5-73.1); Platelet Count Result 149 k/mm3 (150-375); Red Blood Count 2.86 M/mm3 (4.2-5.4); Red Cell Distribution Width 13.2 % (11.5-14.5); White Blood Count 8.2 K/mm3 (4.5-10.0)
--- NOTE | 2023-11-24 05:28 | PC.NURSE ---
0530- pt allowed this RN to draw am labs and to place lidocaine patch on abdomen, however, refused to change positions for peripad change or fundal check, explained the need for this to be done however pt fell back asleep without moving. Will endorse to days.
--- NOTE | 2023-11-24 05:47 | PM.OBPNVD ---
OB - PN: Subj Subjective Date/time seen: 11/24/23 05:47 Patient comments: no complaints and pain well controlled baby status: doing well OB - PN: Obj Data Labs 11/24/23 04:47 11/22/23 18:58 Labs: Laboratory Results - last 24 hr 11/24/23 04:47 WBC 8.2 RBC 2.86 L Hgb 9.1 L Hct 28.1 L MCV 98.3 MCH 31.8 MCHC 32.4 RDW 13.2 Plt Count 149 L MPV 11.3 H Immature Gran % (Auto) 0.5 Neut % (Auto) 79.1 H Lymph % (Auto) 14.6 L [place] % (Auto) 5.4 Eos % (Auto) 0.2 Baso % (Auto) 0.2 Lymph # (Auto) 1.19 [place] # (Auto) 0.4 Eos # (Auto) 0.0 Baso # (Auto) 0.0 Abs Immat Gran (auto) 0.04 H Absolute Neuts (auto) 6.5 Absolute Nucleated RBC 0.000 Nucleated RBC % 0.0 OB - PN A/P Plan day: 1 Plan: routine care Time Spent With Patient Time: Total time spent is greater than 50% in coordination of care (as documented) at patient's floor/unit and/or counseling patient: Time with patient: less than 15 minutes Exam Const: General: cooperative, healthy appearing and comfortable Nutritional Appearance: average body habitus Orientation/consciousness: oriented to person, oriented to place and oriented to time Resp: Effort & Inspection: normal respiratory effort Cardio: Rate: regular rate Rhythm: regular rhythm Heart sounds: S1 normal heart sound present and S2 normal heart sound present GI: Inspection: normal to inspection and incision (cdi)
[2023-11-24] MEDS: MULTIVIT/MIN/PREN/FOL AC/IRON TABLET 1 TAB PO (08:09)
[2023-11-24] MEDS: DOCUSATE SODIUM 100 MG CAPSULE PO ×2 (08:09→16:02)
[2023-11-24] MEDS: HYDROcodone/acetaminophen (*CRX) 5-325 MG TABLET 1 TAB PO (08:09)
[2023-11-24] MEDS: POLYSACCHARIDE IRON COMPLEX 150 MG CAPSULE PO ×2 (08:11→16:02)
[2023-11-24] MEDS: SIMETHICONE 80 MG TAB.CHEW PO ×4 (08:11→20:59)
[2023-11-24] MEDS: HYDROcodone/acetaminophen (*CRX) 10-325 MG TABLET 1 TAB PO ×3 (12:38→20:59)
--- NOTE | 2023-11-24 12:52 | PC.NURSE ---
Lidocane patch fell off after shower at 1100. Patient declines new patch at this time.
--- NOTE | 2023-11-24 15:23 | WPDANLDNPN2 ---
Anes-Prog Note L&D-Neuraxial Date/Time: 11/24/23 15:23 Neuraxial medications: epidural PF morphine Opiod-related complaints: none Patient feedback: Patient satisfied with post-operative pain management.
--- NOTE | 2023-11-24 15:23 | WPDANLDPN2 ---
Anes-Prog Note L&D Date/Time: 11/24/23 15:23 Comfortable throughout: labor and section Neuraxial method: epidural Epidural/Spinal procedure site: clean & non-tender Neuro status: Neuro function grossly intact. Cardiovascular status: normal Respiratory status: normal Airway patency: baseline Mental status: baseline Post-Op hydration status: normal Vital Signs: Last Vital Signs Temp 36.4 C L 11/24/23 12:17 Pulse 85 11/24/23 12:17 Resp 16 11/24/23 12:17 BP 112/59 L 11/24/23 12:17 Pulse Ox 99 11/24/23 12:17 O2 Del Method Room Air 11/24/23 12:00 Pain score (VAS): 1 I/O: Intake & Output 11/23/23 11/24/23 11/24/23 23:59 07:59 15:59 Intake Total 731.3 240 240 Output Total 640 1100 Balance 91.3 -860 240 Post-procedural complaints: none Patient feedback: Patient satisfied with anesthetic care.
--- NOTE | 2023-11-24 16:38 | PC.NURSE ---
1450. Introductions were made, then consulted with patient to assess needs related to . Mother led the conversation with her?plans to feed?her infant and the?experience so far. Mother expressed that she is planning on mostly bottle feeding her infant, and she is not interested in bringing the baby to the breast at this time. She reports she does have a pump at home that she knows how to use and might use at her discretion. She declined the use of a hospital pump at this time. Encouraged understanding of the benefits of skin to skin (demonstrating unwrapping infant and placing upright on her chest). Reviewed milk production, building/maintaining a milk supply, duration of feeding, signs of adequate intake/output and how to record on the feeding sheet. Reviewed the importance of stimulating nipples consistently in order to build a supply. Parents voiced understanding of information, demonstrated learning and will call if there is a request for assistance. Reported to the Primary RN.
[2023-11-25] MEDS: LIDOCAINE 5% PATCH 1 PATCH TRANSDERM (00:05)
[2023-11-25] MEDS: ACETAMINOPHEN 325 MG TABLET 650 MG PO ×3 (00:05→13:09)
[2023-11-25] MEDS: IBUPROFEN 600 MG TABLET PO ×3 (00:05→13:09)
[2023-11-25 00:10] VITALS: BP 111/62
[2023-11-25 04:56] VITALS: BP 122/65
[2023-11-25 07:00] VITALS: BP 123/73; PULSE 86; RESP 16; TEMP 36.8; O2SAT 100
[2023-11-25] MEDS: POLYSACCHARIDE IRON COMPLEX 150 MG CAPSULE PO ×2 (07:09→16:21)
[2023-11-25] MEDS: HYDROcodone/acetaminophen (*CRX) 10-325 MG TABLET 1 TAB PO ×2 (09:24→16:21)
[2023-11-25] MEDS: SIMETHICONE 80 MG TAB.CHEW PO ×3 (09:24→16:21)
[2023-11-25] MEDS: DOCUSATE SODIUM 100 MG CAPSULE PO ×2 (09:24→16:21)
[2023-11-25] MEDS: MULTIVIT/MIN/PREN/FOL AC/IRON TABLET 1 TAB PO (09:24)
--- NOTE | 2023-11-25 09:41 | PM.OBPNVD ---
OB - PN: Subj Subjective Date/time seen: 11/25/23 09:41 Patient comments: no complaints and pain well controlled baby status: doing well OB - PN: Obj Data Labs 11/24/23 04:47 11/22/23 18:58 OB - PN A/P Plan day: 2 Plan: routine care, discharge home and other (call office for follow up) Time Spent With Patient Time: Total time spent is greater than 50% in coordination of care (as documented) at patient's floor/unit and/or counseling patient: Exam Narrative: inc c/d/i : Bimanual exam- vagina & uterus: other (Uterus firm, nt @U)
[2023-11-25] MEDS: MEASLES,MUMPS,RUBELLA VACCINE 0.5 ML VIAL SUB-Q (12:08)
[2023-11-25 12:10] VITALS: BP 141/65
[2023-11-25 15:30] VITALS: BP 103/60
--- NOTE | 2023-11-25 16:22 | PC.NURSE ---
Patient viewed the discharge video Mother & Baby Care, The First Two Weeks . Patient was given the opportunity and encouraged to ask questions. Patient verbalized understanding of information shared and has been given the mother/baby guide for home reference.
[2023-11-27 11:43] VITALS: BP 141/90; PULSE 76; RESP 18; TEMP 36.8; O2SAT 100
== END 2023-11-25 16:51 | disposition home or self-care (01) | DRG 787 ==
LOC: ANHLDR 11-23 21:39 → ANHOB2 11-25 10:31 → ANHLDR 11-27 09:26 → ANHOB2 11-27 09:26
PROVIDERS: Admitting Provider Obstetrics & Gynecology; Visit Provider Obstetrics & Gynecology Gynecology
PROC: 10D00Z1 Extraction of Products of Conception, Low, Open Approach (ICD-10-PCS; CPT 59514; principal; 2023-11-23 20:45)
DX: O10.92 Unspecified pre-existing hypertension complicating childbirth (principal); O75.2 Pyrexia during labor, not elsewhere classified; Z37.0 Single live birth; Z3A.39 39 weeks gestation of pregnancy; O69.81X0 Labor and delivery complicated by cord around neck, without compression, not applicable or unspecified; O61.0 Failed medical induction of labor; O63.0 Prolonged first stage (of labor)
CPT/HCPCS: 36415; 80053; 84550; 85025; 86592; 86703; 86850; 86900; 86901; 90710; A9270; G0432; J0290; J0456; J1885; J2175; J2274; J2405; J2590; J2795; J7030; J7120

== ENCOUNTER 2023-12-03 02:35 | Emergency (ER) | payer BC, MEDICAID, SELFPAY ==
[2023-12-03 02:48] VITALS: BP 140/85; PULSE 97; RESP 16; TEMP 36.7; O2SAT 100
--- NOTE | 2023-12-03 06:53 | ED.SKABFB ---
HPI - Skin/Abscess/Foreign Bdy General Chief complaint: Skin/Abscess/Foreign Body Stated complaint: c section wound came open, done on the Time Seen by Provider: 12/03/23 05:52 History of Present Illness HPI narrative: 28-year-old female who is from Cesarian section that was done on the of this month 10 days prior. Earlier today she was lying down in knows that she was starting to soak through her underwear when she got stood up. There was serosanguineous discharge from her Pfannenstiel incision site and she noticed that there was a small wound dehiscence on the left side. No bleeding, irritation or skin redness. No fevers or chills. Was otherwise in her normal state of health. Did not feel any significant pain or pressure. No other concerns but she wanted to come to the ER for evaluation given the serosanguineous discharge. Related Data Home Medications Medication Instructions Recorded Confirmed labetalol 200 mg tablet 200 mg DAILY 11/09/23 11/09/23 prenat.vits,jose,dtj-aapv-gxacd 1 tablet PO DAILY 11/09/23 11/22/23 Allergies Allergy/AdvReac Type Severity Reaction Status Date / Time No Known Allergies Allergy Verified 11/22/23 20:10 Review of Systems Review of Systems: As reviewed above [facility] Past Medical History Medical History Bartholin cyst HTN (hypertension) Overweight Surgical History Surgical History History of D&C Family History Family History Father Hypertension Diabetes mellitus Atrial fibrillation Mother Kidney failure Social History Social History Years smoked: 4 Smoking status: Former smoker Tobacco type: cigarettes Second hand tobacco smoke exposure: Yes Smoking end date: 03/06/20 Additional smoking assessment comments: 03/09 ppd x 7 years Alcohol intake: current Drinks per week: 6 Alcohol use details: weekends Substance use: never Substance use type: marijuana Other substance usage details: smoking occasionally Last use: mar 2020 Do You Feel Safe in your Home?: Yes Lack of Transportation: No Lack of Food: Never True Current Housing: I Have Housing Concerned About Future Housing: No Difficulty Paying Gas/Electric Bills: No Difficulty Paying for Meds: No Currently Unemployed: No Education: High School Diploma/GED Difficulty w/ Childcare or Family Care: No Living arrangements: with family Gender identity (if verbalized by the patient): Female Sexual Orientation (if Verbalized by the Patient): Straight or Heterosexual Spiritual care concerns: No Exam Narrative: GENERAL: [Well-appearing, well-nourished, and in no acute distress.] HEAD: [Normocephalic, atraumatic.] EYES: [PERRLA and EOMI.] ENT: Nares clear, no rhinorrhea or epistaxis. Mucous membranes moist. NECK: Supple. CHEST: [Clear to auscultation. No respiratory distress.] HEART: [Regular rate and rhythm]. No murmur heard. [Normal peripheral pulses.] ABDOMEN: [Soft, nondistended], [nontender], [No rigidity or guarding] EXTREMITIES: Normal range of motion. [No edema.] SKIN: Pfannenstiel incision site appears clean, dry and intact aside from a very focal 0.5 cm area on the left which is dehisced at the subcutaneous suture. There is no bleeding but serosanguineous fluid is draining minimally with pressure. Wound is very superficially dehisced, no exposure of musculature, fat or soft tissue. Attempted to manipulate and see if there is any deeper involvement and did not appear to be so. No bleeding, cellulitis, purulence or any overlying skin changes. NEURO: [No focal deficits]. Alert and oriented [x3.] PSYCH: [Normal mood and affect.] Course Vital Signs Vital signs: Vital Signs Temperature 3
== END 2023-12-03 07:26 | disposition home or self-care (01) ==
PROVIDERS: Emergency Provider Student in an Organized Health Care Education/Training Program
DX: O90.0 Disruption of cesarean delivery wound (principal); Z87.891 Personal history of nicotine dependence
CPT/HCPCS: 99282

== ENCOUNTER 2024-08-20 14:27 | Outpatient (CLI) | payer BC, MEDICAID, SELFPAY ==
--- OUTSIDE RECORDS SUMMARY | 2024-08-20 15:22 | XMS_ITS | Continuity of Care Document ---
Author Organization [facility] Address [address] [place] [address] Phone Care Team Providers Care Hide Washer Name Role Phone Godwin Reyes MD Unavailable Unavailable Allergies, Adverse Reactions, Alerts Substance Reaction Status Criticality aspirin Active No Information Medications Medication Instructions Dosage Effective Dates (start - stop) Status Comments propranolol 40 mg tablet take 1 tablet by oral route 2 times every day 40 MG - Active Problems Condition Type Effective Dates (start - stop) Clini jose Status Comments No Known Problems Procedures Procedure Date OFFICE/OUTPATIENT VISIT, [facility] OFFICE/OUTPATIENT VISIT, [facility] Advance Directives Directive Yes / No Effective Date File Name No Information Encounters Encounter Description Practice Location Reason(s) For Visit Diagnoses Date Provider Providers Copied on Encounter OFFICE/OUTPA TIENT VISIT, EST [facility], [address] [place], [id number], [place] tel:[phone] [facility] weight loss1 (chief complaint) palpitatio n1 (chief complaint) HTN (chief complaint) PalpitationsEssenti al (primary) hypertensionAbnorma l weight loss 0 Eric Connelly. [address] [place], [id number] , [place]. tel:[phone] Referring Provider: Godwin Reyes [address] [facility] [address], [place], [place], [id number]. tel:[phone] OFFICE/OUTPA TIENT VISIT, [facility], [address] [place], [id number], [place] tel:[phone] [facility] palpitatio n1 (chief complaint) PalpitationsDizzine ss 9 Eirc Connelly. [address] [facility] [address], [place], [place], [id number] , . tel:[phone] Referring Provider: Godwin Reyes [address], [place], [place], [id number]. tel:[phone] Family History Family Member Type Diagnosis Age At Onset Mother Problem (finding) Depression Brother Problem (finding) Alive and well Father Problem (finding) heart disease, not sure what and when, lung CA, DM Payers Payer name Insurance type Covered alliance party ID Authoriza tion(s) No Information Social History Type Description Quantity Date Captured Comments Alcohol Use Details beer & wine Caffeine Use Details Unknown Tobacco Use Status Ex-cigarette smoker 020 Smoking Status Former smoker Smoking Tobacco Use Details Cigarette: Age Started: 17, Age Stopped: 23, Years Used 6 Cigarette: 7 Cigarettes per day, Pack Year: 2.1 Sex Female Vital Signs Date / Time: Height Weight BMI Pulse Rate Blood Pressure Temperature Respiratory Rate Body Surface Area Head Circumference BMI percentile Pulse Ox Inhaled Ox 1:15 PM 61.00 in 224.70 lbs 42.4 6 kg/m eter (2) 85 /min 143/96 mm[Hg] 97.4 F 18 /min Chief Complaint And Reason For Visit From encounter dated 05/03/2019 13:11'. weight loss1 (chief complaint). Description: Pt has been intentionally losing weight with diet and exercise. Pt denies any early satiety, nausea, vomiting, diarrhea, abdominal pain, blood in stool, bloating, appetite loss, etc. Pt has been working on low fat and low carb diet and increasing physical activity. palpitation1 (chief complaint). Description: Pt has frequent chest palpitation Pt denies any chest pain ,Pt denies any sob. Pt has a lot of anxiety also but she states that paxil did not do anything and she stopped it long time ago. Pt denies any depression or any suicidal thought ,Pt denies any crying spells. Pt had normal cardiac echo and holter monitor. HTN (chief complaint). Description: Pt has HTN Pt denies any chest pain or headache Plan Of Treatment Date Type Action Status Goal Tobacco cessation counseling completed Goal Special diet education compl eted Referral Ordered: Cardiology (related to Palpitations) ordered Referral Ordered: Referrals: Cardiology. Evaluate and treat ordered Referral Ordered: DOPPLER ECHO EXAM, HEART ordered History Of Present Illness Encounter Date Complaint History Of Prese nt Illness palpitation1 Pt has frequent chest palpitation Pt denies any chest pain ,Pt denies any sob. Pt has a lot of anxiety also but she states that paxil did not do anything and she stopped it long time ago. Pt denies any depression or any suicidal thought ,Pt denies any crying spells. Pt had normal cardiac echo and holter monitor. weight loss1 Pt has been inte ntionally losing weight with diet and exercise. Pt denies any early satiety, nausea, vomiting, diarrhea, abdominal pain, blood in stool, bloating, appetite loss, etc. Pt has been working on low fat and low carb diet and increasing physical activity. HTN Pt has HTN Pt de nies any chest pain or headache palpitation1 Pt has frequent palpitation, blurred vision with floaters, facial warmth, cold hand, hyperventilation, dizziness without vertigo and poor balance, left arm pain with some tingling and numbness during the episodes for two years Pt states that above occurs daily multiple times per day and seems worse lately with more frequent symptoms pt denies any trigger factor. Pt denies any orthostasis. Pt denies any headache pt denies any weight gain or loss pt went to ER multiple times and was told she has anxiety and panic attacks. pt denies any chest pain, Pt sometimes wakes up in the middle of the night with above Pt had lab done and CBC, mag CMP, TSh. UA and D-dimer all normal. Pt had EKG which showed sinus tachycardia. Pt denies any acute symptoms Instructions Date Instruction Additional Infor mation Special diet education Related t o Body mass index (BMI) 45.0-49.9, adult Weight management Related to Pal pitations Assessments Type Assessment Date assessment Palpitations assessment Essential (primary) hypertension assessment Abnormal weight loss Mental Status Date Cognitive Assessment Orientation - Wilson ed to time, place, person, situation.
--- OUTSIDE RECORDS SUMMARY | 2024-08-20 15:22 | XMS_ITS | Clinical Summary ---
Author Organization [facility] Address [address] [place] [address] Care Team Providers Care Cardiovascular Operating Room Nurse Name Role Phone Mellissa Llanos HENOK Primary Care Provider [phone] Source Comments [facility],non-owned Affiliates and Associated Physician Practices is amultiple site organization consisting of ambulatory clinics and hospital sitesin [place], [place], [place] and [place]. This disclosure is being madepursuant to the Care Everywhere program and may not contain all information available regarding this patient. Last updated 17.[facility] Allergies Active Allergy Reactions Criticality Noted Date Comments Aspirin Unknown 02/24/2019 Took when younger, face got really red according to patient's mother Medications * Be aware that medications may not be up to date on this document. Alwaysverify current medications with the patient. methylPREDNISol one (MEDROL DOSEPAK) 4 MG tablet Take by mouth as directed 1 Each 02/24/2019 Active Social History Tobacco Use Types Packs/Day Years Used Date Smoking Tobacco: Former Cigarettes 0.3 5 1 - 12/2018 Smokeless Tobacco: Never Comments No Sex and Gender Information Value Date Recorded Sex Assigned at Not on file Legal Sex Female 5:39 AM SENIOR ESTIMATOR Gender Identity Not on file Sexual Orientation Not on file Last Filed Vital Signs Vital Sign Reading Time Taken Comments Blood Pressure 126/72 02/24/2019 11:09 AM SENIOR ESTIMATOR Pulse 112 02/24/2019 11:09 AM SENIOR ESTIMATOR Temperature 37 C (98.6 F) 02/24/2019 11:09 AM SENIOR ESTIMATOR Respiratory Rate 18 02/24/2019 11:09 AM SENIOR ESTIMATOR Oxygen Saturation 98% 02/24/2019 11:09 AM SENIOR ESTIMATOR Inhaled Oxygen Concentration - - Weight 113.4 kg (250 lb) 02/24/2019 11:09 AM SENIOR ESTIMATOR Height 154.9 cm (5' 1) 02/24/2019 11:09 AM SENIOR ESTIMATOR Body Mass Index 47.24 02/24/2019 11:09 AM SENIOR ESTIMATOR Plan of Treatment Health Maintenance Due Date Last Done Comments HIV SCREENING 2012 HPV VACCINE (1 - 3-dose series) 2012 HEPATITIS C SCREENING 11/08/2015 DTAP/TDAP/TD VACCINES (1 - Tdap) 2016 HEPATITIS B VACCINE (1 of 3 - 19+ 3-dose series) 2016 COVID-19 VACCINE (1 - 2023-2 5 season) 2023 DEPRESSION SCREENING 03/06/2024 INFLUENZA VACCINE (Season Ended) 2024 ZOSTER VACCINE (1 of 2) 11/13/2047 HIB VACCINE Aged Out No longer eligi ble based on patient's age to complete this topic MENINGOCOCCAL (Group B) VACC INE SHARED DECISION-MAKING Aged Out No longer eligibl e based on patient's age to complete this topic MENINGOCOCCAL GROUPS A/C/Y/W VACCINE Aged Out No longer eligible b ased on patient's age to complete this topic PNEUMOCOCCAL VACCINE Aged Out No long er eligible based on patient's age to complete this topic Insurance MEDICAID - [place] [employer] GENERIC MEDICAID - OUT OF STATE Care Teams Cardiovascular Operating Room Nurse Relationship Specialty Start Date End Date Mellissa Llanos APRN-CNP [address] [facility] [address] [place] [id number] PCP - General 10/01/20
--- OUTSIDE RECORDS SUMMARY | 2024-08-20 15:22 | XMS_ITS | CONTINUITY OF CARE DOCUMENT ---
Author Name malcolm fowler Address Unknown Organization [facility] Address [address] [address] [place] [address] Phone [phone] Care Team Providers Care Oysterman Name Role Phone Yung VILLALTA, Nate Unavailable ONDINA GONZALEZ Unavailable [phone] HOPALIVIA ONDINA Unavailable [phone] PROBLEMS Condition Status Date Provider Notes Dizziness active Kenji Montemayor Palpitations--ef 60% 2019 active Nate contreras MD SOB--renal duplex normal 2020--nl stress routine 04/2024 active Rupert Hernandez HTN active Nate Barragan MD Snoring active Nate Barragan MD Obesity active Rupert Hernandez Cardiology examination active Nate Barragan MD ENCOUNTERS Date Type Provider Location Encounter Diag nosis - In-person encounter Office Visit Nate Barragan MD [facility] - In-person encounter Office Visit Nate Barragan MD [facility] SOB--renal duplex normal 10/2020--nl stress routine 04/2024 - In-person encounter Office Visit Isabella Durbin MD [facility] - In-person encounter Office Visit Nate Barragan MD [facility] Cardiology examination - In-person encounter Office Visit Nate Barragan MD [facility] - In-person encounter Office Visit Nate Barraagn MD [facility] Obesity - In-person encounter Office Visit Nate Barragan MD [facility] SOB--renal duplex normal 10/2020--nl stress routine 04/2024 - In-person encounter Office Visit Nate Barragan MD [facility] HTNSnoring - In-person encounter Office Visit Isabella Durbin MD [facility] SOB--renal duplex normal 10/2020--nl stress routine 04/2024 VITAL SIGNS Date Observation Value Provider Body Mass Index (Ratio) 35.84 kg/m2 Damián Barragan MD blood pressure, diastolic 79 mm[Hg] Holly betsey Rice blood pressure, systolic 106 mm[Hg] Nreeyda nixon Rice oxygen saturation, oximetry 98 % [facility] rate E&M 12 /[facility] weight E&M 196 [lb_av] [facility] height E&M 62 [in_i] [facility] blood pressure, cuff size regular An vic Rice Body Mass Index (Ratio) 39.87 kg/m2 Damián Barragan MD blood pressure, diastolic 80 mm[Hg] Ti ritesh Xie blood pressure, systolic 109 mm[Hg] Tif abelardo Xie pulse rate 91 /min Pia Castro s oxygen saturation, oximetry 99 % Pia Xie blood pressure, cuff size regular Ti ritesh Xie weight E&M 218 [lb_av] Pia Saunder s height E&M 62 [in_i] Pia danielson weight E&M 224 [lb_av] Bernadette stephenson Body Mass Index (Ratio) 40.97 kg/m2 Rupert Hernandez blood pressure, diastolic 79 mm[Hg] Holly leggett Rice blood pressure, systolic 118 mm[Hg] Nereyda nixon Rice oxygen saturation, oximetry 99 % [facility] 91 /[facility] respiratory rate E&M 12 /[facility] weight E&M 224 [lb_av] [facility] height E&M 62 [in_i] [facility] blood pressure, cuff size regular An betsey Hastings blood pressure, diastolic 79 mm[Hg] Pati nkLog blood pressure, systolic 111 mm[Hg] Maria Del Carmen [facility] Body Mass Index (Ratio) 40.42 kg/m2 Damián Barragan MD blood pressure, diastolic 79 mm[Hg] Ka yla [facility] blood pressure, systolic 111 mm[Hg] Ayleen la [facility] oxygen saturation, oximetry 97 % Belle [facility] pulse rate 86 /min Belle [facility] blood pressure, cuff size regular Ka yla [facility] weight E&M 221 [lb_av] Belle [facility] height E&M 62 [in_i] Belle [facility] Body Mass Index (Ratio) 31.46 kg/m2 Damián Barragan MD blood pressure, cuff size large Va kenna Brick blood pressure, diastolic 88 mm[Hg] Mi kenna Brick blood pressure, systolic 138 mm[Hg] [facility] helle Brick oxygen saturation, oximetry 96 % [facility] pulse rate 80 /min Alyssa Erynholly shannan respiratory rate E&M 16 /min Stefanie jackson Errol weight E&M 172 [lb_av] Alyssa Lady campbell height E&M 62 [in_i] Alyssa campbell Body Mass Index (Ratio) 31.27 kg/m2 Damián Barragan MD blood pressure, cuff size large Janet pierson Norton blood pressure, diastolic 60 mm[Hg] Mi kenna Norton blood pressure, systolic 118 mm[Hg] Diomedes knight Norton oxygen saturation, oximetry 99 % Alyssa Norton respiratory rate E&M 16 /min Stefanie jackson Errol pulse rate 92 /min Alyssa campbell weight E&M 171 [lb_av] Alyssa campbell height E&M 62 [in_i] Alyssa campbell Body Mass Index (Ratio) 40.42 kg/m2 Damián Barragan MD blood pressure, diastolic 82 mm[Hg] Pati nkLogestrellita blood pressure, systolic 126 mm[Hg] Maria Del Carmen Gonzalez blood pressure, diastolic 82 mm[Hg] Rh onchase Escoto blood pressure, systolic 126 mm[Hg] Rho garry Escoto oxygen saturation, oximetry 99 % Lynne Escoto pulse rate 82 /min Lynne Escoto respiratory rate E&M 18 /min Lynne Escoto weight E&M 221 [lb_av] Lynne Escoto blood pressure, resting Yes Donnelln chase Escoto blood pressure, cuff size regular Rh onda Tigist height E&M 62 [in_i] Lynne Escoto Body Mass Index (Ratio) 41.51 kg/m2 Rodger Dalton blood pressure, diastolic 84 mm[Hg] Jefferson Aldana blood pressure, systolic 128 mm[Hg] Joyce Aldana oxygen saturation, oximetry 98 % Leti Aldana respiratory rate E&M 18 /min Shirley Aldana pulse rate 96 /min Leti porter weight E&M 227.0 [lb_av] Leti stuart height E&M 62 [in_i] Leti porter ALLERGIES Allergy Name Onset Date Reaction Criticality Status ASA High Criticality active RESULTS Date Observation Value Provider Reference Range Interpretation Location 1 thyroid stimulating hormone, serum 1.470 u[IU]/mL [facility] 0.450-4.500 1 lipoprotein, beta, serum, point, quantitative, calculated 102 mg/dL [facility] 0-99 High 1 very low density lipoproteins 18 mg/dL [facility] 5-40 1 HDL cholesterol, serum 46 mg/dL [facility] >39 1 triglyceride, serum, random 90 mg/dL [facility] 0-149 1 cholesterol, serum 166 mg/dL [facility] 013-253 7636/03/2 1 basophil count, absolute 0.0 x10E3/uL [facility] 0.0-0.2 1 Eosinophil Absolute Count 0.0 X10E3/UL [facility] 0.0-0.4 1 monocyte count, blood, automated 0.5 X10E3/UL [facility] 0.1-0.9 1 lymphocyte count, blood, automated 1.6 X10E3/UL [facility] 0.7-3.1 1 Absolute Neutrophils 5.9 X10E3/UL [facility] 1.4-7.0 1 basophils as percent of blood leukocytes 0 % [facility] Not Estab. 1 eosinophils as percent of blood leukocytes 0 % [facility] Not Estab. 1 monocytes as percent of blood leukocytes 6 % [facility] Not Estab. 1 lymphocytes as percent of blood leukocytes 20 % [facility] Not Estab. 1 neutrophils as percent of blood leukocytes 74 % [facility] Not Estab. 1 platelet count 292 X10E3/UL [facility] 790-328 3897/03/2 1 red blood cell distribution width 12.5 % [facility] 11.7-15.4 1 mean corpuscular hemoglobin concentration, RBC 32.9 G/DL [facility] 31.5-35.7 1 mean corpuscular hemoglobin, RBC 30.1 pg [facility] 26.6-33.0 1 mean corpuscular volume, RBC 92 fL [facility] 79-97 1 hematocrit, blood 41.0 % [facility] 34.0-46.6 1 hemoglobin, blood 13.5 g/dL [facility] 11.1-15.9 1 erythrocyte (RBC) count 4.48 X10E6/UL [facility] 3.77-5.28 1 leukocyte count, blood 8.0 X10E3/UL [facility] 3.4-10.8 1 alanine aminotransferase (SGPT), serum 23 1/L [facility] 0-32 1 aspartate aminotransferase (SGOT), serum 17 1/L [facility] 0-40 1 alkaline phosphatase, serum 82 1/L [facility] 39-117 1 bilirubin, serum, total <0.2 mg/dL [facility] 0.0-1.2 1 albumin/globulin ratio, serum 1.8 [facility] 1.2-2.2 1 globulin, serum 2.5 [facility] 1.5-4.5 1 albumin, serum 4.5 g/dL [facility] 3.9-5.0 1 protein, total, serum 7.0 g/dL [facility] 6.0-8.5 1 calcium, serum 9.3 mg/dL [facility] 8.7-10.2 1 carbon dioxide, venous blood 21 mmol/L [facility] 20-29 1 chloride, serum 105 mmol/L [facility] 96-106 1 potassium, serum 4.2 mmol/L [facility] 3.5-5.2 1 sodium, serum 142 mmol/L [facility] 362-703 2731/03/2 1 urea nitrogen/creatinine ratio, serum 16 [facility] 9-23 1 eGFR if 104 mL/min/{1 .73_m2} [facility] >59 1 eGFR if not 90 mL/min/{1 .73_m2} [facility] >59 1 creatinine, serum 0.91 mg/dL [facility] 0.57-1.00 1 urea nitrogen, blood 15 mg/dL [facility] 6-20 1 blood glucose, random 102 mg/dL [facility] 65-99 High HISTORY OF MEDICATION USE Medication Status Instructions Dates Provider Indications Com ments magnesium oxide 400 mg magnesium tablet active Take 1 tablet by mouth twice a day Rupert Hernandez Zepbound 7.5 mg/0.5 mL pen injector active INJECT 1 PEN SUBCUTANEOUSLY ONCE A WEEK Rupert Hernandez amlodipine 10 mg tablet active TAKE 1 TABLET BY MOUTH EVERY DAY Nate Barragan MD amlodipine 10 mg tablet completed Take 1 tablet by mouth once a day - Bernadette Brandonutpaz amlodipine 10 mg tablet completed - Go Garcia RN phentermine 37.5 mg tablet completed TAKE 1 TABLET EVERY DAY BY ORAL ROUTE IN THE MORNING. - Nate Barragan MD amlodipine 10 mg tablet completed Take 1 tablet by mouth once a day as directed TAKE 1 TABLET BY MOUTH DAILY - Rupert Hernandez ferrous sulfate 325 mg (65 mg iron) tablet completed 1 tablet by mouth once a day - Nate Barragan MD doxycycline hyclate 100 mg capsule completed Take 1 capsule by mouth twice a day - Nate Barragan MD #60, 30 days supply, Prescribed by ZOYA CORNELIUS, Filled 07/24/2020 amlodipine 10 mg tablet completed TAKE 1 TABLET BY MOUTH DAILY - Rupert Hernandez Saxenda 3 mg/0.5 mL (18 mg/3 mL) pen injector completed INJECT 0.6MG UNDER THE SKIN DAILY X 7 DAYS, INCREASE BY 0.6MG EVERY 7 DAYS UNTIL 3MG DAILY - Nate Barragan MD #15, 44 days supply, Prescribed by MARKIE LOVELACE, Filled 07/29/2020 SOCIAL HISTORY Date Observation Value Provider smoking, year quit 2019 Joe Nac ht cigarette use yes Joe Salazart smoking status Current every day smoker J sofia Salazart number of grandchildren Nate Barragan MD R francia Hernanedz smoking, year quit 2019 Rupert genao cigarette use yes Rupert Hernandez smoking status Current every day smoker R iajillian Parekhi smoking, year quit 2019 Rupertjillian Pulliam dzai cigarette use yes Rupert Yannmedzai smoking status Current every day smoker R iajillian Ahmedzai social history E&M S moking History: Bisi looney currently smokes every day. Dominique Raymond cigarette use yes Alyssa Ibrahim nd smoking status Current every day smoker M mandie Norton social history reviewed E&M revi ewed - no changes required Nate Barragan MD smoking, year quit 2019 Alyssa Norton cigarette use yes Alyssa Ibrahim nd smoking status Former smoker Alyssa Lissy cornejo social history reviewed E&M revi ewed - no changes required Rupert Hernandez social history E&M Smoking Histo ry: Bisi looney is a former smoker. Rupert Hernandez social history reviewed E&M revi ewed - no changes required Rupert Hernandez social history reviewed E&M revi ewed - no changes required Nate Barragan MD number of grandchildren Isabella Dalton social history E&M S moking History: Bisi looney is a former smoker. Leonel Dalton social history reviewed E&M revi ewed - no changes required Leonel Dalton smoking, year quit 2019 Leti Aldana cigarette use yes Leti stuart smoking status Former smoker Leti Sullivan FAMILY HISTORY Family Member Condition Father Family History of Co ronary Artery Disease: Father Family History of Di abetes: INSURANCE PROVIDERS Payer name Policy type / Coverage type [place] red alliance party ID [facility] [id number] [facility] Medicaid 1 [id number] ADVANCE DIRECTIVES Name Date DISCUSSED - NO DECISION MADE TREATMENT PLAN Date Name Performer [id number],B, Rupert Ahmedza i [id number],S, Rupert Ahmedza i [id number],B, Rupert Ahmedza i [id number],B, Rupert Yannmedza i [id number],S, Rupert Yannmedza i [id number],S, Rupert Yannmedza i [id number],S, Rupert Ahmedza i [id number],S, Rupert Ahmedza i [id number],S, Rupert Tyza i [id number],SNate MD [id number],SNate MD [id number],SNate MD [id number],SNate MD Cardiology Joe Roberts Cardiology Joe Roberts Cardiology Joe Roberts Cardiology:This visi t has been a part of the consistent, comprehensive, and ongoing management of the chronic medical condition(s) listed above for the patient. Joe Roberts Cardiology Joe Roberts Cardiology: B P today: 109/80 P rior BP: 118/79 (04/12/2024) Labs Reviewed: C reat: 0.91 (05/25/2019) C hol: 166 (05/25/2019) HDL: 46 (05/25/2019) LDL: 102 (05/25/2019) T (05/25/2019) Her updated medication list for this problem includes: Amlodipine 10 Mg Tablet (Amlodipine) ..... Take 1 tablet by mouth every day Nate Barragan MD Cardiology Nate Barragan MD Cardiology:This visi t has been a part of the consistent, comprehensive, and ongoing management of the chronic medical condition(s) listed above for the patient. Her updated medication list for this problem includes: Amlodipine 10 Mg Tablet (Amlodipine) ..... Take 1 tablet by mouth every day Nate Barragan MD Electrophysiology:no worsening s xs currently Rupert Hernandez Electrophysiology:BP is satisfactory today. BP today: 118/79 P rior BP: 111/79 (01/24/2024) Labs Reviewed: C reat: 0.91 (05/25/2019) C hol: 166 (05/25/2019) HDL: 46 (05/25/2019) LDL: 102 (05/25/2019) T (05/25/2019) Her updated medication list for this problem includes: Amlodipine 10 Mg Tablet (Amlodipine) ..... Take 1 tablet by mouth every day Rupert Hernandez Electrophysiology:Wi ll obtain tele to evaluate her sxs, will send in Magnesium 400 mg BID Orders: S tress Routine ([id number]) M onitor - Telemetry (Mobile Cardiac) ([id number]) Rupert Ahmedzai Electrophysiology:Un clear if arrythmia related ,will check routine stress test and 30 day tele to evaluate further Orders: S tress Routine ([id number]) M onitor - Telemetry (Mobile Cardiac) ([id number]) Rupert Ahmedzai Electrophysiology:Re viewed importance of diet and lifestyle modification. Rupert Ahmedzai Cardiology: H er updated medication list for this problem includes: Amlodipine 10 Mg Tablet (Amlodipine) ..... Take 1 tablet by mouth every day Nate Barragan MD Cardiology Rupert Lernermedgalina Cardiology Rupert Hernandez Cardiology Rupert Ahmedzai Cardiology Rupert Ahmedzai TeleHealth Rupert Ahmedzai TeleHealth Rupert Ahmedzai TeleHealth Rupert Ahmedzai TeleHealth Rupert Ahmedzai TeleHealth Rupert Ahmedzai Cardiology Nate Barragan MD Cardiology Nate Barragan MD Cardiology Nate Barragan MD Cardiology Nate Barragan MD Date Name Monitor - Telemetry (Mobile Cardiac) Stress Routine Sleep Study Home Renal Artery Duplex LIPID PANEL COMPREHENSIVE METABO LIC PANEL W/EGFR CBC (INCLUDES DIFF/P LT) TSH, 3RD GENERATION Stress Routine DLCO - 48082 FRC - 23920 FVC - 71566 Complete Echo HISTORY OF PROCEDURES Procedure Date Procedure Name Provider Procedure Notes S tatus Complex e/m visit ad d on Nate Barragan MD completed Complex e/m visit ad d on Nate Barragan MD completed Complex e/m visit ad d on Isabella Durbin MD completed EKG Isabella Durbin MD comp leted EKG Nate Barragan MD completed EKG Nate Barragan MD completed EKG Isabella Durbin MD comp leted Event Monitor Joe Tran MD compl eted
--- OUTSIDE RECORDS SUMMARY | 2024-08-20 15:22 | XMS_ITS | Continuity of Care Document ---
Author Organization [facility] Address [address] [facility] [address] [place] [address] Phone Care Team Providers Care Test And Research Reactor Operator Name Role Phone Morgan OD, Fam Unavailable Unavailable Procedures Procedure Date Eye Exam & Treatment Refraction Eye Exam, New Patient Advance Directives Directive Yes / No Effective Date File Name No Information Encounters Encounter Description Practice Location Reason(s) For Visit Diagnoses Date Provider Providers Copied on Encounter [facility], [address], [place], [place], [id number], [place] tel:[phone] [facility] No Information 5200 9 Morgan OD Fam. [address] [facility] , [address], [place], [address], [place]. tel:[phone] [facility], [address] [place] [address] [address], [place], [place], [id number], [place] tel:[phone] [facility] No Information 9200 [address] Sage Morejon. [address], [place], [place], [id number], [place]. tel:[phone] Family History Family Member Type Diagnosis Age At Onset No Information Payers Payer name Insurance type Covered alliance party ID Authoriza tion(s) Medicaid [facility] [id number] Social History Type Description Quantity Date Captured Comments Sex Female Smoking Status No Information Chief Complaint And Reason For Visit No Information Reason For Referral Reason For Referral No Information History Of Present Illness Encounter Date Complaint History Of Prese nt Illness No Information Functional Status Date Functional Assessmen t No Information Instructions Date Instruction Additional Infor mation No Information Assessments Type Assessment Date No Information Patient Care Teams Name Effective Dates (start - stop) Status Members No Information
--- OUTSIDE RECORDS SUMMARY | 2024-08-20 15:22 | XMS_ITS | Data Portability ---
[facility] Organization [facility] Address [address] [place] [address] Assessment No assessment recorded. Plan of Treatment Reminders Order Date Submit Date Provider Last Modified By Organization Details Last Modified Time Details Appointments None recorded. Lab pap, IG + HPV, cervical - please use Z11.51 in addition to code above for HPV testing. 2019 [place] [facility], [address], [place] [address], [place], [address], 0 06:05:58 test, urine 2019 020 [facility]Office Order, Internal Use Only DO Not Attach Compendium DO Not Attach Compendium, Do Not Delete/merge, [id number] 0 15:42:15 urinalysi s, dipstick 2019 [facility]20 [facility], Internal Use Only DO Not Attach Compendium DO Not Attach Compendium, Do Not Delete/merge, [id number] 0 15:42:15 bacterial vaginosis panel, vaginal 2019 020 [facility] (Centralized Electronic Ordering - All Locations), Patient Can Go To The Location Of Their Choice, [id number] 0 09:09:14 culture, vaginal/r ectal, streptoco ccus group B 2019 020 [facility] (Centralized Electronic Ordering - All Locations), Patient Can Go To The Location Of Their Choice, 0 09:09:15 methicill in resistant staphyloc occus aureus, culture, unspecifi ed specimen 2019 020 [place] G[facility], [facility] [address], [address], [place], [address], 0 16:08:15 test, urine 2019 020 [email or web address], Internal Use Only DO Not Attach Compendium DO Not Attach Compendium, Do Not Delete/merge, [id number] 0 17:25:20 urinalysi s, dipstick 2019 020 [email or web address] In-Office Order, Internal Use Only DO Not Attach Compendium DO Not Attach Compendium, Do Not Delete/merge, [id number] 0 17:25:20 TSH + free T4, serum 2016 017 [place] [facility], [facility] [address], [address], [place], [address], 7 07:14:02 CBC 2016 017 [place] [facility], [facility] [address], [address], [place], [address], 7 07:14:03 CMP, serum or plasma 2016 017 [facility], [facility] [address] [place], [address], [place], [address], 7 07:14:02 test, urine 2015 016 [email or web address] In-Office Order, Internal Use Only DO Not Attach Compendium DO Not Attach Compendium, Do Not Delete/merge, [id number] 6 10:41:56 urinalysi s, dipstick 2015 016 [email or web address] In-Office Order, Internal Use Only DO Not Attach Compendium DO Not Attach Compendium, Do Not Delete/merge, [id number] 6 10:41:56 herpes simplex, culture, unspecifi ed specimen 2015 016 [place] [facility], [address], [address], [place], [address], 6 10:36:40 culture, bacterial 2015 016 [facility], [address], [address], [place], [address], 6 11:34:05 bacterial vaginosis + vaginitis panel, vaginal 2014 015 [place] [facility], [address], [address], [place], [address], 5 06:11:48 HSV (1+2) DNA, qual, PCR, unspecifi ed specimen 2014 015 [place] [facility], [address], [address], [place], [address], 5 06:11:49 culture, vaginal/r ectal, streptoco ccus group B 2014 015 [place] [facility], [address] [place] [address], [address], [place], [address], 5 06:11:50 Referral None recorded. Procedures None recorded. Surgeries None recorded. Imaging US, echocardi ogram, transthor acic, complete, w/ color flow 2016 017 [email or web address] Not available 0 16:01:00 Medication Orders multivita min tablet [address] [facility], [address], [place], [place], [id number], 0 15:16:13 Calcium with Vitamin D 600 mg-10 mcg (400 unit) tablet 2019 020 [facility]FACE [facility], [address], [place], [place], [id number], 0 15:16:10 doxycycli ne hyclate 100 mg capsule 2019 020 [facility]487, [address], [place], [id number], 0 16:38:54 multivita min tablet 2019 020 [facility]17, [address], [id number], 0 16:40:49 Calcium with Vitamin D 600 mg-10 mcg (400 unit) tablet 2019 020 [facility]21012, [address], [id number], 0 16:40:47 Sprintec (28) 0.25 mg-0.035 mg tablet 2015 016 [facility], [address] [place] [address] , [address], [place], [place], [id number], 0 16:04:27 bacitraci n 500 unit/gram topical ointment 2015 016 [facility], [address] [place] [address] , [address], [place], [place], [id number], 0 16:03:50 fluconazo le 150 mg tablet [address] , [address], [place], [place], [id number], 0 16:03:57 Metrogel Vaginal 0.75 % (37.5 mg/5 gram) 2014 015 [facility], [address] [place] [address] , [address], [place], [place], [id number], 0 16:04:08 Xulane 150 mcg-35 mcg/24 hr transderm al patch 2014 015 [facility], [address] [place] [address] , [address], [place], [place], [id number], 0 16:04:39 nystatin 100,000 unit/gram topical cream 2014 015 [email or web address] Not available 0 16:04:20 Patient TargetsNo targets recorded. Patient Instructions Encounter Date Encounter Id Patient Instructions Last Modified By Organization Details Last Modified Time 12/25/2014 [id number] candidiasis: care instructions mwasserman Not available 12/25/2014 19:26:49 bacterial vaginosis in teens: care instructions mwasserman Not available 12/25/2014 19:26:49 ringworm in children: care instructions mwasserman Not available 12/25/2014 19:26:49 05/30/2019 [id number] MRSA: care instructions mwasserman Not available 05/30/2019 16:21:51 bartholin gland cyst: care instructions mwasserman Not available 05/30/2019 16:21:51 Reason for Referral None Reported. Results Created Date Observation Date Name Description Value Unit Range Abnormal Flag Note LastModifiedBy Organization Detail LastModifiedTime 06/27/19 20 06/27/2019 urina lysis , dipst ick Leukocytes Negati ve Not Available In-Office Order Internal Use Only DO Not Attach Compendium DO Not Attach Compendium, Do Not Delete/merge, [id number] 06/27/2019 15:38:02 06/27/19 20 06/27/2019 urina lysis , dipst ick Nitrite negati ve Not Available In-Office Order Internal Use Only DO Not Attach Compendium DO Not Attach Compendium, Do Not Delete/merge, 06/27/2019 15:38:02 06/27/19 20 06/27/2019 urina lysis , dipst ick Urobilinogen .2 Not Available In-Of fice Order Internal Use Only DO Not Attach Compendium DO Not Attach Compendium, Do Not Delete/merge, 06/27/2019 15:38:02 06/27/19 20 06/27/2019 urina lysis , dipst ick Protein Negati ve Not Available In-Office Order Internal Use Only DO Not Attach Compendium DO Not Attach Compendium, Do Not Delete/merge, 06/27/2019 15:38:02 06/27/19 20 06/27/2019 urina lysis , dipst ick pH 7.5 Not Available In-Office Order Internal Use Only DO Not Attach Compendium DO Not Attach Compendium, Do Not Delete/merge, 06/27/2019 15:38:02 06/27/19 20 06/27/2019 urina lysis , dipst ick Blood Negati ve Not Available In-Office Order Internal Use Only DO Not Attach Compendium DO Not Attach Compendium, Do Not Delete/merge, 06/27/2019 15:38:02 06/27/19 20 06/27/2019 urina lysis , dipst ick Specific Kaleva 1.020 Not Available In-Off ice Order Internal Use Only DO Not Attach Compendium DO Not Attach Compendium, Do Not Delete/merge, 06/27/2019 15:38:02 06/27/19 20 06/27/2019 urina lysis , dipst ick Ketone Negati ve Not Available In-Office Order Internal Use Only DO Not Attach Compendium DO Not Attach Compendium, Do Not Delete/merge, 06/27/2019 15:38:02 06/27/19 20 06/27/2019 urina lysis , dipst ick Bilirubin Negati ve Not Available In-Office Order Internal Use Only DO Not Attach Compendium DO Not Attach Compendium, Do Not Delete/merge, 06/27/2019 15:38:02 06/27/19 20 06/27/2019 urina lysis , dipst ick Glucose Negati ve Not Available In-Office Order Internal Use Only DO Not Attach Compendium DO Not Attach Compendium, Do Not Delete/merge, [id number] 06/27/2019 15:38:02 06/27/19 20 06/27/2019 pregn kamar test, urine HCG negati ve Not Available In-Office Order Internal Use Only DO Not Attach Compendium DO Not Attach Compendium, Do Not Delete/merge, [id number] 06/27/2019 15:37:38 05/30/19 20 05/30/2019 urina lysis , dipst ick Leukocytes Negati ve Not Available In-Office Order Internal Use Only DO Not Attach Compendium DO Not Attach Compendium, Do Not Delete/merge, 05/30/2019 16:53:37 05/30/19 20 05/30/2019 urina lysis , dipst ick Nitrite negati ve Not Available In-Office Order Internal Use Only DO Not Attach Compendium DO Not Attach Compendium, Do Not Delete/merge, 05/30/2019 16:53:37 05/30/19 20 05/30/2019 urina lysis , dipst ick Urobilinogen .2 Not Available In-Of fice Order Internal Use Only DO Not Attach Compendium DO Not Attach Compendium, Do Not Delete/merge, 05/30/2019 16:53:37 05/30/19 20 05/30/2019 urina lysis , dipst ick Protein Negati ve Not Available In-Office Order Internal Use Only DO Not Attach Compendium DO Not Attach Compendium, Do Not Delete/merge, 05/30/2019 16:53:37 05/30/19 20 05/30/2019 urina lysis , dipst ick pH 6.5 Not Available In-Office Order Internal Use Only DO Not Attach Compendium DO Not Attach Compendium, Do Not Delete/merge, 05/30/2019 16:53:37 05/30/19 20 05/30/2019 urina lysis , dipst ick Blood Hemoly zed: Trace Not Available In-Office Order Internal Use Only DO Not Attach Compendium DO Not Attach Compendium, Do Not Delete/merge, 05/30/2019 16:53:37 05/30/19 20 05/30/2019 urina lysis , dipst ick Specific Kaleva 1.030 Not Available In-Off ice Order Internal Use Only DO Not Attach Compendium DO Not Attach Compendium, Do Not Delete/merge, [id number] 05/30/2019 16:53:37 05/30/19 20 05/30/2019 urina lysis , dipst ick Ketone Negati ve Not Available In-Office Order Internal Use Only DO Not Attach Compendium DO Not Attach Compendium, Do Not Delete/merge, [id number] 05/30/2019 16:53:37 05/30/19 20 05/30/2019 urina lysis , dipst ick Bilirubin Negati ve Not Available In-Office Order Internal Use Only DO Not Attach Compendium DO Not Attach Compendium, Do Not Delete/merge, 05/30/2019 16:53:37 05/30/19 20 05/30/2019 urina lysis , dipst ick Glucose Negati ve Not Available In-Office Order Internal Use Only DO Not Attach Compendium DO Not Attach Compendium, Do Not Delete/merge, 05/30/2019 16:53:37 05/30/19 20 05/30/2019 pregn kamar test, urine HCG negati ve Not Available In-Office Order Internal Use Only DO Not Attach Compendium DO Not Attach Compendium, Do Not Delete/merge, 05/30/2019 16:53:13 08/27/19 16 08/27/2015 urina lysis , dipst ick Leukocytes Negati ve Not Available In-Office Order Internal Use Only DO Not Attach Compendium DO Not Attach Compendium, Do Not Delete/merge, 08/27/2015 11:33:43 08/27/19 16 08/27/2015 urina lysis , dipst ick Nitrite negati ve Not Available In-Office Order Internal Use Only DO Not Attach Compendium DO Not Attach Compendium, Do Not Delete/merge, 08/27/2015 11:33:43 08/27/19 16 08/27/2015 urina lysis , dipst ick Urobilinogen .2 Not Available In-Of fice Order Internal Use Only DO Not Attach Compendium DO Not Attach Compendium, Do Not Delete/merge, 08/27/2015 11:33:43 08/27/19 16 08/27/2015 urina lysis , dipst ick Protein Negati ve Not Available In-Office Order Internal Use Only DO Not Attach Compendium DO Not Attach Compendium, Do Not Delete/merge, 08/27/2015 11:33:43 08/27/19 16 08/27/2015 urina lysis , dipst ick pH 5.5 Not Available In-Office Order Internal Use Only DO Not Attach Compendium DO Not Attach Compendium, Do Not Delete/merge, 08/27/2015 11:33:43 08/27/19 16 08/27/2015 urina lysis , dipst ick Blood Negati ve Not Available In-Office Order Internal Use Only DO Not Attach Compendium DO Not Attach Compendium, Do Not Delete/merge, 08/27/2015 11:33:43 08/27/19 16 08/27/2015 urina lysis , dipst ick Specific Kaleva 1.030 Not Available In-Off ice Order Internal Use Only DO Not Attach Compendium DO Not Attach Compendium, Do Not Delete/merge, 08/27/2015 11:33:43 08/27/19 16 08/27/2015 urina lysis , dipst ick Ketone Negati ve Not Available In-Office Order Internal Use Only DO Not Attach Compendium DO Not Attach Compendium, Do Not Delete/merge, 08/27/2015 11:33:43 08/27/19 16 08/27/2015 urina lysis , dipst ick Bilirubin Negati ve Not Available In-Office Order Internal Use Only DO Not Attach Compendium DO Not Attach Compendium, Do Not Delete/merge, 08/27/2015 11:33:43 08/27/19 16 08/27/2015 urina lysis , dipst ick Glucose Negati ve Not Available In-Office Order Internal Use Only DO Not Attach Compendium DO Not Attach Compendium, Do Not Delete/merge, 08/27/2015 11:33:43 08/27/19 16 08/27/2015 urina lysis , dipst ick Appearance Clear Not Available In-Offi ce Order Internal Use Only DO Not Attach Compendium DO Not Attach Compendium, Do Not Delete/merge, [id number] 08/27/2015 11:33:43 08/27/19 16 08/27/2015 urina lysis , dipst ick Color Pale Yellow Not Available In-Office Order Internal Use Only DO Not Attach Compendium DO Not Attach Compendium, Do Not Delete/merge, [id number] 08/27/2015 11:33:43 08/27/19 16 08/27/2015 pregn kamar test, urine HCG negati ve Not Available In-Office Order Internal Use Only DO Not Attach Compendium DO Not Attach Compendium, Do Not Delete/merge, [id number] 08/27/2015 11:32:33 12/27/19 15 12/29/2014 bacte rial vagin osis + vagin itis panel , vagin al trich vag by CHINEDU NEGATI VE negati ve Not Available [facility] ([facility]) [address] [place] [address], [address], 12/31/2014 06:11:48 12/27/19 15 12/29/2014 bacte rial vagin osis + vagin itis panel , vagin al chlamydia trachomatis, CHINEDU NEGATI VE negati ve Not Available [facility] ([facility]) [address] [place], [address], 12/31/2014 06:11:48 12/27/19 15 12/29/2014 bacte rial vagin osis + vagin itis panel , vagin al neisseria gonorrhoeae, CHINEDU NEGATI VE negati ve Not Available [facility] ([facility]) [address] [place], [address], 12/31/2014 06:11:48 12/27/19 15 12/31/2014 bacte rial vagin osis + vagin itis panel , vagin al atopobium vaginae MODERA TE - 1 score Not Available [facility] ([facility]) [address] [place], [address], 12/31/2014 06:11:48 12/27/19 15 12/31/2014 bacte rial vagin osis + vagin itis panel , vagin al bvab 2 LOW - 0 score Not Available [facility] ([facility]) [address] [place], [address], 12/31/2014 06:11:48 12/27/19 15 12/31/2014 bacte rial vagin osis + vagin itis panel , vagin al megasphaera 1 LOW - 0 score CALCU LATE TOTAL SCORE BY COREY Stephenson THE 3 INDIV IDUAL BACTE RIAL VAGIN OSIS (BV) MARKE R SCORE S TOGET HER. TOTAL SCORE IS INTER PRETE D FOLLO WS: TOTAL SCORE 0-1: INDIC ATES THE ABSEN CE OF BV. TOTAL SCORE 2: INDET ERMIN ATE FOR BV. ADDIT IONAL CLINI CHATO DATA SHOUL D BE EVALU ATED TO ESTAB GURPREET A DIAGN OSIS. TOTAL SCORE 3-6: INDIC ATES THE PRESE NCE OF BV. THIS TEST WAS DEVEL OPED AND ITS PERFO RMANC E FAN CTERI STICS DETER MINED BY [employer]. IT HAS NOT BEEN CLEAR ED OR APPRO DARREL BY THE FOOD AND DRUG ADMIN ISTRA TION. THE FDA HAS DETER MINED THAT SUCH CLEAR ANCE OR APPRO LYNN IS NOT NECES ZHENG. Not Available [facility] ([facility]) [address] [facility], [place], [address], 12/31/2014 06:11:48 12/27/19 15 12/31/2014 bacte rial vagin osis + vagin itis panel , vagin al elva albicans, CHINEDU NEGATI VE negati ve Not Available [facility] ([facility]) [address] [facility] [facility], [place], [address], 12/31/2014 06:11:48 12/27/19 15 12/31/2014 bacte rial vagin osis + vagin itis panel , vagin al elva glabrata, CHINEDU NEGATI VE negati ve THIS TEST WAS DEVEL OPED AND ITS PERFO RMANC E FAN CTERI STICS DETER MINED BY [address]. IT HAS NOT BEEN CLEAR ED OR APPRO DARREL BY THE FOOD AND DRUG ADMIN ISTRA TION. THE FDA HAS DETER MINED THAT SUCH CLEAR ANCE OR APPRO LYNN IS NOT IVONNE PERSAUDY. Not Available [facility] ([facility]) [address] [facility], [place], [address], 12/31/2014 06:11:48 12/27/19 15 12/29/2014 HSV (1+2) DNA, qual, PCR, unspe cifie d speci men hsv 1 CHINEDU NEGATI VE negati ve Not Available [facility] ([facility]) [address] [facility] [facility], [place], [address], 12/31/2014 06:11:49 12/27/19 15 12/29/2014 HSV (1+2) DNA, qual, PCR, unspe cifie d speci men hsv 2 CHINEDU NEGATI VE negati ve Not Available [facility] ([facility]) [address] [facility], [place], [address], 12/31/2014 06:11:49 12/27/19 15 12/28/2014 cultu re, vagin al/re ctal, strep tococ cus group B strep gp B CHINEDU POSITI VE negati ve abnormal PENIC ILLIN G, AMPIC ILLIN , OR CEFAZ KORIN ARE INDIC ATED FOR INTRA PARTU M PROPH YLAXI S OF PERIN ATAL GROUP B STREP (GBS) COLON IZATI ON. REFLE X SUSCE PTIBI LITY TESTI NG SHOUL D BE PERFO RMED PRIOR TO USE OF CLIND AMYCI N ONLY ON GBS ISOLA TARA FROM PENIC ILLIN -IVANIA RGIC WOMEN WHO ARE CONSI DERED A HIGH RISK FOR ANAPH YLAXI S. TREAT MENT WITH VANCO MYCIN WITHO UT ADDIT IONAL TESTI NG IS WARRA NTED IF RESIS TANCE TO CLIND AMYCI N IS NOTED . (CDC GUIDE LINES , MMWR, 2009) Not Available [facility] ([facility]) [address] [facility], [place], [address], 12/31/2014 06:11:49 08/27/19 16 08/29/2015 herpe s simpl ex, cultu re, unspe cifie d speci men hsv culture without typing NEGATI VE Not Available [facility] ([facility]) [address] [place], [address], 09/02/2015 10:36:40 08/27/19 16 09/02/2015 cultu re, genit al, bacte rial genital culture, routine FINAL REPORT abnormal Not Available [facility] ([facility]) [address] [facility], [place], [address], 09/02/2015 10:36:40 08/27/19 16 09/02/2015 cultu re, genit al, bacte rial result 1 COMMEN T abnormal METHI CILLI N - RESIS TANT STAPH YLOCO CCUS AUREU S HEAVY GROWT H BASED ON RESIS TANCE TO OXACI LLIN THIS ISOLA TE WOULD BE RESIS TANT TO ALL CURRE NTLY AVAIL ABLE BETA- LACTA M ANTIM ICROB IAL AGENT S, WITH THE EXCEP TION OF THE NEWER CEPHA LOSPO RINS WITH ANTI- MRSA ACTIV ITY, SUCH CEFTA ROLIN E Not Available [facility] ([facility]) [address] [facility], [place], [address], 09/02/2015 10:36:40 08/27/19 16 09/02/2015 cultu re, genit al, bacte rial result 2 COMMEN T ROUTI NE GENIT AL VERNON . HEAVY GROWT H Not Available [facility] ([facility]) [address] [facility], [place], [address], 09/02/2015 10:36:40 08/27/19 16 09/02/2015 cultu re, genit al, bacte rial antimicrobia l susceptibili ty COMMEN T S = SUSCE PTIBL E; I = INTER MEDIA TE; R = RESIS TANT P = POSIT CHRISTAL; N = NEGAT CHRISTAL MICS ARE EXPRE SSED IN MICRO GRAMS PER ML ANTIB IOTIC RSLT# 1 RSLT# 2 RSLT# 3 RSLT# 4 CIPRO FLOXA KARYN R CLIND AMYCI N S ERYTH ROMYC IN S GENTA MICIN S LEVOF LOXAC IN R LINEZ OLID S OXACI LLIN R PENIC ILLIN R RIFAM PIN S TETRA CYCLI NE S TRIME THOPR IM/HARRISON LFA R VANCO MYCIN S Not Available [facility] ([facility]) [address] [place], [address], 09/02/2015 10:36:40 08/27/19 16 08/28/[address] probl em request problem FINAL REPORT INAPP ROPRI ATE SOURC E FOR ANAER OBIC CULTU RE. A ROUTI NE AEROB IC CULTU RE WAS INITI ATED. CONTA CT THE MICRO BIOLO GY LAB FOR FURTH ER INFOR MATIO N. Not Available [facility] ([facility]) [address] [place], [address], 09/02/2015 10:36:41 08/09/19 17 08/09/2016 TSH + free T4, serum TSH 1.260 uIU/m L 0.450- 4.500 Not Available [facility] ([facility]) [address] [place], [address], 08/09/2016 07:14:02 08/09/19 17 08/09/2016 TSH + free T4, serum T4,free(dire ct) 1.17 NG/dL 0.93-1 .60 Not Available [facility] ([facility]) [address] [place], [address], 08/09/2016 07:14:02 08/09/19 17 08/09/2016 CMP, serum or plasm a glucose, serum 75 mg/dL 65-99 Not Available [facility] ([facility]) [address] [place], [address], 08/09/2016 07:14:02 08/09/19 17 08/09/2016 CMP, serum or plasm a BUN 13 mg/dL 6-20 Not Available [facility] ([facility]) [address] [place], [address], 08/09/2016 07:14:02 08/09/19 17 08/09/2016 CMP, serum or plasm a creatinine, serum 0.83 mg/dL 0.57-1 .00 Not Available [facility] ([facility]) [address] [place], [address], 08/09/2016 07:14:02 08/09/19 17 08/09/2016 CMP, serum or plasm a eGFR if nonafricn AM 103 mL/mi n/1.7 3 >59 Not Available [facility] ([facility]) [address] [place], [address], 08/09/2016 07:14:02 08/09/19 17 08/09/2016 CMP, serum or plasm a eGFR if africn AM 119 mL/mi n/1.7 3 >59 Not Available [facility] ([facility]) [address] [place] [place], [address], 08/09/2016 07:14:02 08/09/19 17 08/09/2016 CMP, serum or plasm a BUN/creatini ne ratio 16 9-23 Not Available [facility] ([facility]) [address] [place] [place], [address], 08/09/2016 07:14:02 08/09/19 17 08/09/2016 CMP, serum or plasm a sodium, serum 141 mmol/ L 134-14 4 Not Available [facility] ([facility]) [address] [place] [place], [address], 08/09/2016 07:14:02 08/09/19 17 08/09/2016 CMP, serum or plasm a potassium, serum 4.4 mmol/ L 3.5-5. 2 Not Available [facility] ([facility]) [address] [place], [address], 08/09/2016 07:14:02 08/09/19 17 08/09/2016 CMP, serum or plasm a chloride, serum 102 mmol/ L 96-106 Not Available [facility] ([facility]) [address] [place], [address], 08/09/2016 07:14:02 08/09/19 17 08/09/2016 CMP, serum or plasm a carbon dioxide, total 20 mmol/ L 18-29 Not Available [facility] ([facility]) [address] [place], [address], 08/09/2016 07:14:02 08/09/19 17 08/09/2016 CMP, serum or plasm a calcium, serum 9.4 mg/dL 8.7-10 .2 Not Available [facility] ([facility]) [address] [place], [address], 08/09/2016 07:14:02 08/09/19 17 08/09/2016 CMP, serum or plasm a protein, total, serum 6.6 g/dL 6.0-8. 5 Not Available [facility] ([facility]) [address] [place], [address], 08/09/2016 07:14:02 08/09/19 17 08/09/2016 CMP, serum or plasm a albumin, serum 4.4 g/dL 3.5-5. 5 Not Available [facility] ([facility]) [address] [place], [address], 08/09/2016 07:14:02 08/09/1908/09/2016 CMP, serum or plasm a globulin, total 2.2 g/dL 1.5-4. 5 Not Available [facility] ([facility]) [address] [place], [address], 08/09/2016 07:14:02 08/09/1908/09/2016 CMP, serum or plasm a A/G ratio 2.0 1.2-2. 2 Not Available [facility] ([facility]) [address] [place], [address], 08/09/2016 07:14:02 08/09/19 17 08/09/2016 CMP, serum or plasm a bilirubin, total 0.3 mg/dL 0.0-1. 2 Not Available [facility] ([facility]) [address] [place], [address], 08/09/2016 07:14:02 08/09/19 17 08/09/2016 CMP, serum or plasm a alkaline phosphatase, S 77 IU/L 43-101 Not Available [facility] ([facility]) [address] [place], [address], 08/09/2016 07:14:02 08/09/1908/09/2016 CMP, serum or plasm a AST (SGOT) 17 IU/L 0-40 Not Available [facility] ([facility]) [address] [place], [address], 08/09/2016 07:14:02 08/09/19 17 08/09/2016 CMP, serum or plasm a ALT (SGPT) 20 IU/L 0-32 Not Available [facility] ([facility]) [address] [place], [address], 08/09/2016 07:14:02 08/09/19 17 08/09/2016 CBC WBC 5.3 x10e3 /uL 3.4-10 .8 Not Available [facility] ([facility]) [address] [place], [address], 08/09/2016 07:14:03 08/09/19 17 08/09/2016 CBC RBC 4.54 x10e6 /uL 3.77-5 .28 Not Available [facility] ([facility]) [address] [place], [address], 08/09/2016 07:14:03 08/09/19 17 08/09/2016 CBC hemoglobin 13.7 g/dL 11.1-1 5.9 Not Available [facility] ([facility]) [address] [place], [address], 08/09/2016 07:14:03 08/09/19 17 08/09/2016 CBC hematocrit 41.8 % 34.0-4 6.6 Not Available [facility] ([facility]) [address] [place], [address], 08/09/2016 07:14:03 08/09/19 17 08/09/2016 CBC MCV 92 fL 79-97 Not Available [facility] [facility]) [address] [place], [address], 08/09/2016 07:14:03 08/09/19 17 08/09/2016 CBC MCH 30.2 pg 26.6-3 3.0 Not Available [facility] ([facility]) [address] [place], [address], 08/09/2016 07:14:03 08/09/19 17 08/09/2016 CBC MCHC 32.8 g/dL 31.5-3 5.7 Not Available [facility] ([facility]) [address] [place], [address], 08/09/2016 07:14:03 08/09/19 17 08/09/2016 CBC RDW 13.3 % 12.3-1 5.4 Not Available [facility] ([facility]) [address] [place], [address], 08/09/2016 07:14:03 08/09/19 17 08/09/2016 CBC platelets 255 x10e3 /uL 150-37 9 Not Available [facility] ([facility]) [address] [place], [address], 08/09/2016 07:14:03 08/09/19 17 08/09/2016 CBC NRBC 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 [place] Reg[place] at[place] s requi res a writt en and peyman d reque st be forwa rded to a labor atory follo wing a verba l order of a labor atory test. Tish palmer t us to meet this requi remen t and to compl ete our recor ds. Date: ICD Diagn osis Code( s):__ _ Physi savana or Autho rized Desig nee:_ _ Pleas e Print Physi savana or Autho rized Desig nee Signa ture: Your Signa ture Confi francine Your Order Of The Test( s) Listrenetta d Not Available [facility] ([facility]) [address], [place], [address], 05/31/2019 14:08:24 05/30/19 20 05/31/2019 verba l order additional test(s) requested COMMEN T: Test( s) added per SCOOBY Lund at accou nt 05-30 Logge [address] by Hope sa Dove Test# [id number], Ng, Trich vag by CHINEDU Diagn osis Codes Provi ded A49.0 2 Not Available [facility] ([facility]) [address] [facility], [place], [address], 05/31/2019 14:08:24 05/30/19 20 06/01/2019 methi cilli n resis tant staph yloco ccus aureu s, cultu re, unspe cifie d speci men MRSA screening culture NEGATI VE Not Available [facility] ([facility]) [address] [place], [address], 06/01/2019 16:08:15 05/30/19 20 06/03/2019 CT + NG + TV, DNA, urine /swab chlamydia by CHINEDU NEGATI VE negati ve Not Available [facility] ([facility]) [address] [place], [address], 06/03/2019 20:07:13 05/30/19 20 06/03/2019 CT + NG + TV, DNA, urine /swab gonococcus by CHINEDU NEGATI VE negati ve Not Available [facility] ([facility]) [address] [place], [address], 06/03/2019 20:07:13 05/30/19 20 06/03/2019 CT + NG + TV, DNA, urine /swab trich vag by CHINEDU NEGATI VE negati ve Not Available [facility] ([facility]) [address] [place], [address], 06/03/2019 20:07:13 05/30/19 20 05/31/2019 tatiana en autho rizat ion written authorizatio n ROSARIO Bland en Autho rizat ion Recei darrel. Autho rizat ion recei darrel from DR MICHELLE WALL 05-30 Logge d by Anna farr Not Available [facility] ([facility]) [address] [place], [address], 06/03/2019 20:07:14 06/27/19 20 06/28/2019 pap, IG + HPV, cervi chato diagnosis: Rosario t JAEL SIEGEL FOR INTRA EPITH ELIAL QUINN N OR GONZALES GREEN . Not Available [facility] ([facility]) [address] [place], [address], 06/29/2019 06:05:58 06/27/19 20 06/28/2019 pap, IG + HPV, cervi chato specimen adequacy: Rosario t Satis facto ry for evalu ation . Endoc ervic al and/o r squam ous metap lasti c cells (endo cervi chato compo nent) are prese nt. Not Available [facility] ([facility]) [address] [place], [address], 06/29/2019 06:05:58 06/27/19 20 06/28/2019 pap, IG + HPV, cervi chato clinician provided ICD10: Rosario cartwright Z01.4 19 Z11.5 1 Z20.2 Not Available [facility] ([facility]) [address] [place], [address], 06/29/2019 06:05:58 06/27/19 20 06/28/2019 pap, IG + HPV, cervi chato performed by: Rosario Colby rs, Cytot mohsen cartwright (ASCP ) Not Available [facility] ([facility]) [address] [place], [address], 06/29/2019 06:05:58 06/27/19 20 06/28/2019 pap, IG + HPV, cervi chato . . Not Available [facility] ([facility]) [address] [place], [address], 06/29/2019 06:05:58 06/27/19 20 06/28/2019 pap, IG + HPV, cervi chato note: Rosario t The Pap smear is a scree vilma test thomas coughlin to aid in the detec tion of frances ligna nt and malig nant condi tions of the uteri ne cervi x. It is not a diagn ostic proce dure and shoul d not be used as the sole means of detec ting cervi chato cance r. Both false -posi tive and false -nega tive repor ts do occur . Not Available [facility] ([facility]) [address] [place], [address], 06/29/2019 06:05:58 06/27/19 20 06/28/2019 pap, IG + HPV, cervi chato test methodology: Commen t This liqui d based ThinP rep(R ) pap test was scree ced with the use of an image guide shannan herrera. Not Available [facility] ([facility]) [address] [place], [address], 06/29/2019 06:05:58 06/27/1906/28/2019 pap, IG + HPV, cervi chato HPV aptima Positi ve negati ve abnormal This nucle ic acid ampli ficat ion test detec ts fourt een high- risk HPV types (16,1 8,31, 33,35 ,39,4 5,51, 52,56 ,58,5 9,66, 68) witho ut diffe renti ation . Not Available [facility] ([facility]) [address] [place], [address], 06/29/2019 06:05:58 06/27/1906/29/2019 bacte rial vagin osis panel , vagin al trich vag by CHINEDU Negati ve negati ve Not Available [facility] ([facility]) [address] [place], [address], 07/03/2019 09:09:14 06/27/1906/29/2019 bacte rial vagin osis panel , vagin al chlamydia trachomatis, CHINEDU Negati ve negati ve Not Available [facility] ([facility]) [address] [place], [address], 07/03/2019 09:09:14 06/27/19 20 06/29/2019 bacte rial vagin osis panel , vagin al neisseria gonorrhoeae, CH[facility]EDU Negati ve negati ve Not Available [facility] ([facility]) [address] [place], [address], 07/03/2019 09:09:14 06/27/19 20 07/03/2019 bacte rial vagin osis panel , vagin al atopobium vaginae High - 2 score abnormal Not Available [facility] ([facility]) [address] [place], [address], 07/03/2019 09:09:14 06/27/19 20 07/03/2019 bacte rial vagin osis panel , vagin al bvab 2 Modera te - 1 score Not Available [facility] ([facility]) [address] [facility], [place], [address], 07/03/2019 09:09:14 06/27/19 20 07/03/2019 bacte rial vagin osis panel , vagin al megasphaera 1 High - 2 score abnormal Calcu late total score by corey stephenson the 3 indiv idual bacte rial vagin osis (BV) marke r score s toget her. Total score is inter prete d as follo ws: Total score 0-1: Indic ates the absen ce of BV. Total score 2: Indet ermin ate for BV. Addit ional clini chato data shoul d be evalu ated to estab gurpreet a diagn osis. Total score 3-6: Indic ates the prese nce of BV. This test was devel oped and its perfo rmanc e fan cteri stics deter mined by [facility]. It has not been clear ed or appro darrel by the Food and Drug Admin istra tion. The FDA has deter mined that such clear ance or appro lynn is not neces zheng. Not Available [facility] ([facility]) [address] [place], [address], 07/03/2019 09:09:14 06/27/19 20 07/03/2019 bacte rial vagin osis panel , vagin al elva albicans, CHINEDU Negati ve negati ve Not Available [facility] ([facility]) [address] [place], [address], 07/03/2019 09:09:14 06/27/19 20 07/03/2019 bacte rial vagin osis panel , vagin al elva glabrata, [facility]U Negati ve negati ve Not Available [facility] ([facility]) [address] [place], [address], 07/03/2019 09:09:14 06/27/19 20 07/03/2019 bacte rial vagin osis panel , vagin al hsv 1 CHINEDU Negati ve negati ve Not Available [facility] ([facility]) [address] [place], [address], 07/03/2019 09:09:14 06/27/19 20 07/03/2019 bacte rial vagin osis panel , vagin al hsv 2 CHINEDU Negati ve negati ve Not Available [facility] ([facility]) [address] [place], [address], 07/03/2019 09:09:14 06/27/19 20 06/29/2019 cultu re, vagin al/re ctal, strep tococ cus group B strep gp B [facility] Positi ve negati ve abnormal Cente rs for Disea se Contr ol and Preve ntion (CDC) and Ameri can Congr ess of Obste trici ans and Gynec ologi sts (ACOG ) guide lines for preve ntion of perin atal group B strep tococ chato (GBS) disea se speci fy co-co llect ion of a vagin al and recta l swab speci men to maxim ize sensi tivit y of GBS detec tion. Per the CDC and ACOG, swabb ing both the lower vagin a and rectu m subst antia lly incre ases the yield of detec tion moni red with sampl ing the vagin a alone . Penic illin G, ampic illin , or cefaz korin are indic ated for intra partu m proph ylaxi s of perin atal GBS colon izati on. Refle x susce ptibi lity testi ng shoul d be perfo rmed prior to use of clind amyci n only on GBS isola tara from penic illin -ivania rgic women who are consi dered a high risk for anaph ylaxi s. Treat ment with vanco mycin witho ut addit ional testi ng is warra nted if resis tance to clind amyci n is noted . Not Available [facility] ([facility]) [address] [facility], [place], [address], 07/03/2019 09:09:15 Result Notes None recorded. 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 2019 Fam moore, [place] - [facility] 0 17:16:10 Group B Streptoco ccus carrier 771042543885 3 Active 2019 Fam [place] - [facility] 0 10:35:13 Streptoco ccal sore throat 96522416 Active Wayne Rudd null, [place] - [facility] 6 10:47:31 Bacterial vaginosis 730154452 Active [place] R[place] - [facility] 6 10:47:31 Candidias is 93226552 Active [place] R[place] [facility] 6 10:47:31 Dermatoph ytosis 28435865 Active [place] Rudd [place] - [facility] 6 10:47:31 Papular eruption 766597186 Completed 05/30/2019 Fam [place] - [facility] 0 16:01:38 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 Procedures Surgical History Date Name Laterality Status Provider Name and Address Organization Details Recorded Time 06/27/2019 Date of Last Pap Smear completed Nicol George MA [facility] 06/27/2019 15:15:14 Imaging Results None recorded. Procedure Notes None recorded. Medical Equipment None Reported. Allergies Allergen ID Allergen Name Allergen Category Reaction Reaction Severity Criticality Documentation Date Start Date Code Code System Note Provider Name and Address Organization Details Recorded Time 108175 aspirin medicatio n rash mild Not available 05/30/2019 1191 RxNorm 05/29 rash on face, cb-rm a Denise Pyle MA oscar, [facility] 0 16:03:35 Medications Name Sig Start Date Stop Date Status Note LastModified by Organization Details LastModified Time multivitami n tablet Take 1 tablet every day by oral route. 2019 active Not Available Not Available Not Avai lable doxycycline hyclate 100 mg capsule TAKE 1 CAPSULE BY MOUTH TWICE A DAY active Not Available Not Available No t Available fluconazole 150 mg tablet Take 1 tablet by oral route. 05/29 completed Not Available Not Available Not Available metronidazo le 0.75 % (37.5 mg/5 gram) vaginal gel Insert 1 applicato rful every day by vaginal route at bedtime for 5 days. 2019 active Not Available Not Available Not Avai lable bacitracin 500 unit/gram topical ointment Apply 1 applicati on twice a day by topical route as directed for 10 days. 05/29 completed Not Available Not Available Not Available penicillin V potassium 500 mg tablet Take 1 tablet twice a day by oral route for 10 days. 2019 active Not Available Not Available Not Avai lable metronidazo le 500 mg tablet Take 1 tablet twice a day by oral route. 05/29 completed Not Available Not Available Not Available Tamiflu 75 mg capsule 05/29 completed Not Available Not Available Not Available tetracyclin e 250 mg capsule Take 1 capsule every 6 hours by oral route as directed for 7 days. 05/29 completed Not Available Not Available Not Available erythromyci n 250 mg tablet Take 1 tablet every 6 hours by oral route for 10 days. 05/29 completed Not Available Not Available Not Available nystatin 100,000 unit/gram topical cream APPLY TO THE AFFECTED AREA(S) BY TOPICAL ROUTE 3 TIMES PER DAY 05/29 completed Not Available Not Available Not Available fluoxetine 10 mg capsule 05/29 completed Not Available Not Available Not Available amoxicillin 400 mg/5 mL oral suspension Take 10 mL every 12 hours by oral route as directed for 10 days. 05/29 completed Not Available Not Available Not Available fluticasone propionate 50 mcg/actuati on nasal spray,suspe nsion 05/29 completed Not Available Not Available Not Available amoxicillin 875 mg-potassiu m clavulanate 125 mg tablet 05/29 completed Not Available Not Available Not Available Sprintec (28) 0.25 mg-0.035 mg tablet Take 1 tablet every day by oral route as directed. 05/29 completed Not Available Not Available Not Available Calcium with Vitamin D 600 mg-10 mcg (400 unit) tablet Take 1 tablet twice a day by oral route. 2019 active Not Available Not Available Not Avai lable Nexplanon 68 mg subdermal implant Inject 1 implant by subcutane ous route. 05/29 completed Not Available Not Available Not Available Xulane 150 mcg-35 mcg/24 hr transdermal patch APPY 1 PATCH TO SKIN WEEKLY 05/29 completed Not Available Not Available Not Available Vitals Date Recorded Body height Body mass index (BMI) Body weight Systolic blood pressure Diastolic blood pressure Provider Name and Address Organization Details Last Updated DateTime 05/30/2019 156.21 cm 41.3 kg/m2 356344.5 1 g 122 mm[Hg] 88 mm[Hg] Denise Pyle [place] - [facility] 0 16:10:35 Date Recorded Body mass index (BMI) Body weight Systolic blood pressure Diastolic blood pressure Provider Name and Address Organization Details Last Updated DateTime 06/27/2019 41.8 kg/m2 896179.28 g 134 mm[Hg] 104 mm[Hg] Nicol George MA [facility] 06/27/2019 15:28:12 Date Recorded Body height Provider Name an d Address Organization Details Last Updated DateTime 06/27/2019 156.21 cm Fam Zacarias [facility] 06/27/2019 14:51:58 Date Recorded Body height Body weight Body mass index (BMI) Body temperature Oxygen saturation Oxygen saturation in Arterial blood by Pulse oximetry Heart rate Systolic blood pressure Diastolic blood pressure Provider Name and Address Organization Details Last Updated DateTime 7 156.21 cm 603079. 2 g 41 kg/m2 98.3 [degF] 99 % 99 % 95 /min 122 mm[Hg] 86 mm[Hg] Yolanda Tsang MA [facility] 7 15:38:13 Date Recorded Body mass index (BMI) Body weight Systolic blood pressure Diastolic blood pressure Provider Name and Address Organization Details Last Updated DateTime 08/27/2015 39.6 kg/m2 36961.174 81 g 122 mm[Hg] 78 mm[Hg] Nicol George MA [facility] 08/27/2015 10:27:21 Date Recorded Body height Provider Name an d Address Organization Details Last Updated DateTime 08/27/2015 156.21 cm Jesenia Alvarado MA [facility] 08/27/2015 10:03:05 Date Recorded Body height Body mass index (BMI) Body weight Systolic blood pressure Diastolic blood pressure Provider Name and Address Organization Details Last Updated DateTime 12/25/2014 156.21 cm 37.4 kg/m2 21166.06 637 g 118 mm[Hg] 82 mm[Hg] Nicol George MA [facility] 5 18:05:40 Social History Question Answer Notes LastModified by Organizat ion Details LastModified Time Tobacco Smoking Status Smoker, Current Status Unknown Denise Pyle MA null, [facility] 05/30/2019 16:07:28 Do You Have An Advance Directive? No Information not available 12/25/2014 Animal Exposure? Yes Cat [email or web address] Information not available 07/10/2014 Do You Wear A Helmet When Biking? No [email or web address] Information not available 07/10/2014 Is Blood Transfusion Acceptable In An Emergency? Yes Information not available 12/25/2014 What Is Your Level Of Caffeine Consumption? Occasional Information not available 05/30/2019 How Much Tobacco Do You Chew? None Information not available 12/25/2014 What Type Of President [employer] Do You Use? None [email or web address] Information not available 07/10/2014 What Type Of Diet Are You Following? REGULAR [email or web address] Information not available 07/10/2014 Education 12 Information no t available 05/30/2019 Have There Been Any Changes To Your Family Or Social Situation? No [email or web address] Information not available 07/10/2014 What Is The Fluoride Status Of Your Home? Unknown [email or web address] Information not available 07/10/2014 Are There Any Guns Present In Your Home? No [email or web address] Information not available 07/10/2014 What Is Your Home Situation? Mother Information not available 07/10/2014 Do You Use Insect Repellent Routinely? No [email or web address] Information not available 07/10/2014 Live Alone Or With Others? With Others Information not available 12/25/2014 Car Seat Type Or Seat Belt? Seat Belt [email or web address] Information not available 07/10/2014 Parent Involvement? Dad Not Invloved [email or web address] Information not available 07/10/2014 Riding In Car Front Seat? Yes [email or web address] Information not available 07/10/2014 What Was The Date Of Your Most Recent Tobacco Screening? 05/30/2019 Information not available 05/30/2019 How Many Children Do You Have? 0 Information not available 12/25/2014 What Is Your Parents' Marital Status? [email or web address] Information not available 07/10/2014 Performs Monthly Self-breast Exam? No Information not available 12/25/2014 Pool Exposure Yes [email or web address] Information not available 07/10/2014 Do You Use Protection During Sex? No Information not available 12/25/2014 What Is Your Relationship Status? Single Information not available 12/25/2014 What Is The Name Of Your School? [employer] [email or web address] Information not available 07/10/2014 Seat Belts Used Routinely No Information not available 12/25/2014 Are You Sexually Active? Yes Information not available 12/25/2014 Do You Have Any Siblings? 1 [email or web address] Information not available 07/10/2014 Do You Have Smoke And Carbon Monoxide Detectors In Your Home? Yes [email or web address] Information not available 07/10/2014 At What Age Did You Start Smoking Tobacco? 17 Information not available 12/25/2014 Are You Passively Exposed To Smoke? Yes Discussed Health Risks Of Smoking And Offered Cessation Program Info [email or web address] Information not available 07/10/2014 How Much Tobacco Do You Smoke? No Pt States Smokes 1-2 X Weekly, Cb-rma Information not available 05/30/2019 General Stress Level High Information not available 12/25/2014 Do You Use Sunscreen Routinely? No [email or web address] Information not available 07/10/2014 On What Date Was Tobacco Cessation Counseling Provided? 05/30/2019 Information not available 05/30/2019 How Many Years Have You Smoked Tobacco? 2 Information not available 12/25/2014 Year In School 10 [email or web address] Informatio n not available 07/10/2014 Sex: Unknown Functional Status Question Answer Note LastModified by Organizat ion Details LastModified Time What is your level of alcohol consumption? Occasional Information not available 12/25/2014 Do you or have you ever used smokeless tobacco? Never used [email or web address] tobacco Information not available 05/30/2019 Are you currently employed? 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 Never used electronic cigarettes Information not available 05/30/2019 What is your exercise level? Occasional [email or web address] Information not available 07/10/2014 Mental Status Question Answer Note LastModified by Organization D etails LastModified Time Are you or have you been involved with bullying? No [email or web address] Information not available 07/10/2014 Family History Relationship Description Onset Age of this Age Resolved Age Notes LastModified by Organization Details LastModified Time Mother Anxiety disorder [email or web address] Not available 2015 10:47:36 Mother Depressive disorder [email or web address] Not available 2015 10:47:36 Maternal Aunt Heart disease [email or web address] Not available 2015 10:47:36 Maternal Aunt Kidney disease [email or web address] Not available 2015 10:47:36 Maternal Grandfather Disease of liver [email or web address] Not available 2015 10:47:36 Medical History Condition Response Coronary Artery Disease N Blood Diseases N Kidney Cyst N Hyperthyroidism N Blood Transfusion N MRSA N Blood disorders N Emphysema N COPD N Blood Clots N Depression Y Pneumonia N Peripheral Arterial Disease N Premature N Edema N TIA N Headaches/Migraines N Anxiety Disorder N Obesity N Infertility N Polyps N Acid Reflux (GERD) N Hematuria N Stroke N Neck Injury N Polio N Hospital Admission other than N Neurologic Disorder N Other Sleep Disorders N Rheumatoid Arthritis N Fibromyalgia N Abdominal Aortic Aneurysm Repair N Kidney Disease N Heart Conditions N Heart Disease/Heart Problems N Hospitalizations N Brain Tumors N Acne N Eating Disorder N Skin Problems N Constipation N Meningitis N Tuberculosis N Cerebral Palsy N Myocardial Infarction N Asthma N Substance Abuse N Peripheral Vascular Disease N Vertigo N Sleep Disorder N Cirrhosis N Pulmonary Embolism N Chicken Pox N Flomax Use Past or Present N Hematologic Disease N Anxiety/Depression N Thyroid Disease N Colon Cancer N Glaucoma N Lung Disease N Developmental or Behavioral Disorders N Bipolar N Pacemaker N Diverticulitis/Diverticulosis N Anesthesia Complications N Orthopedic Problems N Orthotics N Head Injury/Concussion N Congenital Anomalies N Lopez Bite N Chronic Kidney Disease N Endometriosis N Liver Disease N Dialysis N Schizophrenia N Speech Delay N Chronic Obstructive Pulmonary Disease N Parkinson's Disease N Thyroid Problems N GI Problems N Developmental Delay N Anemia N Immune System Disorder N Multiple Sclerosis N Colon Polyps N Heart Attack ([place]) N Diabetes N Cardiomyopathy N Blood Transfusions N Heart Problems/Murmur N Eye Trauma N Congestive Heart Failure (CHF) N Valvular Heart Disease N Hyperlipidemia N Double Vision N Abuse/Domestic Violence N Hepatitis B N Lupus N Epilepsy/Seizures N Reflux/GERD N Aneurysm N Bronchitis N Heart Disease N Hypertension N Pre-Eclampsia N Heart Failure N Other N Gout N High Blood Pressure N Atrial Fibrillation N Kidney Stones N Head Trauma/Injury N Congenital Heart Disease N Spine Problems N Gastrointestinal Disease N Lung Mass N Sinusitis N Obstructive Sleep Apnea N Muscle, Joint, or Bone Problems N Autoimmune disease N Vision or Eye Problems N Arthritis N Blood Clot N Cancer N Seasonal allergies N Leg or Foot Ulcers N Raynaud's Disease N Aortic Aneurysm N Arrhythmia N Headaches N Heart Problems N Ambloypia N Ear or Hearing Problems N Hyperparathyroidism N Migraines N Artificial Joints N Kidney or Bladder Problems N NSAID Use N Encephalitis N PTSD N Ulcers N Prostate Hypertrophy N Bleeding Disorder N AIDS/HIV N Urinary Tract Infection N Back Problems N Allergies N Atrial Flutter N GERD/Reflux N Hepatitis N Autism Spectrum Disorder (ASD) N Breast Cancer N Hernia N Hypothyroidism N Breast Problem N Genitourinary Disease N Deep Vein Thrombosis N Varicose Veins N Cystic Fibrosis N Hearing Loss N Developmental Problems N Carotid Disease N Vitamin D Deficiency N ADHD N Bladder or Kidney Problems N High Cholesterol N [place] N Valvular Abnormalities N Psychiatric/Mental Health Condition N Organ Transplant N Foot Deformity N Allergies/Hayfever N Dyslipidemia N Hyponatremia N Diabetic Eye Disease N Osteoporosis/Osteopenia N Back Pain N Proteinuria N Mental Illness N Neurological Problems N Ovarian Cancer N Bedwetting N Seizures/Epilepsy N Kidney Failure N Ocular trauma N Dementia N Diverticulitis N Sleep Apnea N Mental Problems N Warfarin Management N Osteoporosis N Gynecological History Statement/Question Response Flow Heavy STIs/STDs N HPV Vaccine Y Duration of Flow (days) 7 Age at Menarche 14 Current Control Method Seeking Pre gnancy Frequency of Cycle (Q days) 30 Sexually Active? Y Menses Monthly Y Date of Last Pap Smear 06/27/2019 Sexual Problems? N LMP Approximate Desired Control Method None Obstetrics History GPAL:G 0 P 0 0 0 0 Type Value Multiple Births 0 Full Term 0 Induced 0 Spontaneous 0 Premature 0 Living 0 Ectopics 0 Total 0 Immunizations Vaccine Type Date Status Note Provider Nam e and Address Organization Details Recorded Time meningococcal MCV4P 5 completed Not Available [facility] 03/23/2019 02:29:55 Past Encounters Encounter ID Performer Location Encounter Start Date Encounter Closed Date Diagnosis/Indication Diagnosis SNOMED-CT Code Diagnosis ICD10 Code Diagnosis Note [id number] [facility]FF[facility] [address] [place] [address] 07/10/2014 09:45:02 07/10/2014 10:49:19 Streptococcal sore throat [id number] MD [facility]) [address] [place] [address] 09/16/2014 14:28:14 09/16/2014 17:53:12 Well child [id number] Tobacco user [id number] O ffered options for cessation, not ready at this time. Obese 507781970 Advised [facility] physical activity. [id number] MD Stephanie Banda ([facility]) [address] [place] [phone] 12/25/2014 16:20:54 12/25/2014 19:03:39 Dermatophytosis 40507327 B35.9 Contraception care 02667 5005 Z30.40 Candidiasis 39594227 B37 .9 Bacterial vaginosis 4197 67082 N76.0 [id number] MD Stephanie Collins ([facility]) [address] [place] [phone] 08/27/2015 10:01:21 09/03/2015 15:28:32 Initial prescription of oral contraception 552098467 Z30.011 19 year old wishes to start oral contracept ion. LMP 07/29/15. Will start first day start technique with Sprintec-2 8 . Papular eruption 1579023 01 R21 Papular eruption with pustules on Mons Pubis. Hyperemic and sore. HSV and bacterial cultures done. Will treat with Bacitracin and await cultures. [id number] MD Stephanie Montano (Adult Med) [address] [place] [phone] 07/27/2016 15:14:49 07/27/2016 18:01:46 Palpitations 72045276 R00.2 echocar Dizziness 475307707 R42 [id number] MD Stephanie Banda ([facility]) [address] [place] [phone] 05/30/2019 15:11:20 05/31/2019 09:15:36 Methicillin resistant Staphylococcus aureus infection 245433303 A49.02 Cyst of Ba rtholin's gland duct 21593603 N75.0 d/t mrsa ok doxy Family mayur nning surveillance 931125968 Z30.09 [id number] MD Stephanie Banda ([facility]) [address] [place] [phone] 06/27/2019 14:47:04 06/28/2019 15:15:05 Gynecologic examination 15246876 Z01.419 Z11.51 Exposure t o sexually transmissible disorder 429070035 Z20.2 Health Concerns Section Related Observation LastModified by Organization Detai ls LastModified Time None Recorded Concern Status LastModified by Organization Details LastModified Time None Recorded Advance Directives Directive N: Payers Insurance Date Sequence Insurance Name Policy Number Policy Mota Covered Member ID Mota Member ID Guarantor Name 06/01/2023 3 [employer] [place] [id number] [place] Zandra Rice [id number] Zandra Rice 06/01/2023 1 [employer] [place] [id number] [place] Zandra Rice [id number] Zandra Rice 07/11/2019 2 *SELF PAY* Breanna bakari Krystal 06/01/2023 2 [place] [facility] Zandra Krystal [id number] Zandra Krystal 06/01/2023 1 [facility] PRIOR TO 09/03/2020 (MEDICAID REPLACEMENT - HMO) Zandra Krystal [id number] Zandra Rice 06/01/2023 1 [facility] PRIOR TO 09/03/2020 (MEDICAID REPLACEMENT - HMO) Zandra Krystal [id number] Zandra Rice 06/01/[address] [facility] (MEDICAID HMO) [id number] Zandra Rice [id number] Zandra Rice 09/24/2018 1 [facility] (PPO) [id number] Yazmin Sanabria [id number] Zandra Krystal Notes Date Note Type Note Provider Name and Address Organization Details Recorded Time 12/25/2014 text/html Tracie Zacarias [facility], [facility] 12/25/2014 19:26:51 07/27/2016 text/html had episodes of dizziness in the past month. Associated with rapid heart beat and chest tightness. Pt has residual abnormal feeling long after main episode has passed. Lety Magaña MD Attn: [address]ing[address] [place], [address], [facility] 07/27/2016 16:34:00 05/30/2019 text/html 23yo g0 obese mr sa carter Zacarias [place], [place] - [facility] 05/30/2019 18:22:13 06/27/2019 text/html Annual GYNReport ed bypatient.History: planning in the near future; actively trying to conceive Menstrual cycle:Normal menses Urinary symptoms:No hematuria; No incontinence Vulva:No genital lesion Vagina:Normal vaginal discharge Breast:No breast pain; No breast lump; No nipple discharge Current Contraception:Jaclyn h control not practiced Sexual complaints:No sexual complaints; No pain during intercourse; Normal libido Menopausal Symptoms:No menopausal symptoms; Normal vaginal lubrication Psychological symptoms:No depression; No anxiety; No PMDD Preventive measures:Encourage self breast examination; Encourage regular exercise; Encourage no tobacco use; Encourage regular mammograms starting age 40; Followed with Q3 year pap smear and high risk HPV typing 23yowf g0 here for wwe Fam Zacarias [place], [place] - [facility] 06/27/2019 15:42:09 OBGyn Episode No OBEpisode recorded.
--- OUTSIDE RECORDS SUMMARY | 2024-08-20 15:22 | XMS_ITS | Data Portability ---
Author Organization [place] - [facility], Main Office Address [address] [place] [address] Assessment Encounter Date Assessment Date Assessment LastModified by Organization Details LastModified Time 05/24/2022 05/24/2022 WWE- UNEMPLOYMENT EXAMINERCielo GILBERT- 01/14/22 Call office if worse, ER if life threatening illness RTC 1 month She voices understanding of plan and agrees [email or web address] Not available 05/24/2022 13:08:35 06/28/2022 06/28/2022 E- UNEMPLOYMENT EXAMINERCielo GILBERT- 01/14/22 Call office if worse, ER if life threatening illness RTC 1 month She voices understanding of plan and agrees [email or web address] Not available 06/18/2022 13:13:42 09/01/2022 09/01/2022 YAMILEXE- UNEMPLOYMENT EXAMINERCielo GILBERT- 01/14/22 Call office if worse, ER if life threatening illness RTC 1 month She voices understanding of plan and agrees Not available 08/07/2022 20:58:48 11/03/2022 11/03/2022 E- UNEMPLOYMENT EXAMINERCielo GILBERT- 01/14/22 Call office if worse, ER if life threatening illness RTC 6 months and PRN She voices understanding of plan and agrees encouraged her to get her labs done- she has orders [email or web address] Not available 11/03/2022 15:44:01 Plan of Treatment Reminders Order Date Submit Date Provider Last Modified By Organization Details Last Modified Time Details Appointments None recorded. Lab lipid panel, serum 2022 023 [email or web address] [facility], [address], [address] [address], [place], [address], 09:20:35 urinalysis complete, reflex culture 2022 023 [email or web address] [facility], [address], [address], [place], [address], 3 09:20:35 CBC w/ auto diff 2022 023 [email or web address] [facility], [address], [address], [place], [address], 09:20:35 CMP, serum or plasma 2022 023 [email or web address] [facility], [address], [address], [place], [address], 09:20:35 HbA1c (hemoglobin A1c), blood 2022 023 [email or web address] [facility], [address], [address], [place], [address], 3 09:20:35 lipid panel, serum 2022 023 [email or web address] [facility], [address], [address], [place], [address], 3 09:20:34 urinalysis complete, reflex culture 2022 023 [email or web address] [facility], [address], [address], [place], [address], 3 09:20:34 CBC w/ auto diff 2022 023 [email or web address] [facility], [address], [address], [place], [address], 3 09:20:34 CMP, serum or plasma 2022 023 [email or web address] [facility], [address], [address], [place], [address], 3 09:20:34 HbA1c (hemoglobin A1c), blood 2022 023 [email or web address] [facility], [address], [address], [address], 3 09:20:34 Referral None recorded. Procedures None recorded. Surgeries None recorded. Imaging None recorded. Medication Orders phentermine 37.5 mg tablet 2022 023 [email or web address] [id number], [address] [place] [address], [address], 3 10:51:38 phentermine 37.5 mg tablet 2022 023 [email or web address] [facility], [address] [place] [address], [address], 3 12:09:56 phentermine 37.5 mg tablet 2022 023 NANCY [id number], [address] [place] [address], [address], 3 10:50:49 bupropion HCl XL 150 mg 24 hr tablet, extended release 2022 023 [email or web address] [facility] [id number], [address], 3 10:22:21 Patient TargetsNo targets recorded. Patient InstructionsNo instructions recorded. Reason for Referral None Reported. Problems Name Problem SNOMED Code Status Onset Date Resolution Date Notes Provider Name and Address Organization Details Recorded Time Acute sinusitis 17578087 Active 2021 Not Available [facility] 3 20:03:32 Dizziness 800317863 Active 2021 Not Available [facility] 3 20:03:32 Acute upper respiratory infection 07886699 Active 2022 Not Available [facility] 3 20:03:32 Candidiasis of vagina 98703397 Active 2021 Not Available [employer] 3 20:03:32 Pain in throat 795469203 Active 2022 Aubrie moore, [place] [employer] [facility] [employer] [facility] 3 11:13:10 Essential hypertension 21611992 Active 2022 MORENITA JainP-C [address], [address], [place], [address] , [employer] [facility] [employer] [facility] 3 14:32:02 Intermittent palpitations 299411998 Active 2022 MORENITA JainP-C [address], [address], [place], [address] , [employer] [facility] [employer] [facility] 3 14:32:12 Obesity 973379323 Active 2022 WILMA Jain-C [address], [address], [place], [address] , [employer] [facility] 3 14:32:15 Iron deficiency 63214171 Active 2022 WILMA Jain-C [address], [address], [place], [address] , [email or web address] [facility] 3 14:32:21 Hyperlipidemi a 37804055 Active 2022 WILMA Jain-C [address], [address], [place], [address] , [employer] [facility] [employer] [facility] 3 14:32:23 Constipation 63397571 Active 2022 MORENITA JainP-C [address], [address], [place], [address] , [employer] [facility] 3 14:32:27 Mixed anxiety and depressive disorder 585695225 Active 2022 MORENITA JainP-C [address], [address], [place], [address] , [employer] [facility] [employer] [facility] 3 10:49:56 Psoriasis 7255462 Active 2023 Mellissa Llanos, LOSS PRE[employer]ION [employer]PERATIONS MANAGER-C [address] [facility], [facility] [address], [place], [address] , [facility] [employer] 4 10:35:50 Problem Notes None recorded. Procedures Surgical History Date Name Laterality Status Provider Name and Address Organization Details Recorded Time excision of Bartholin's cyst completed Not Available [facility] 05/04/2022 20:02:14 Imaging Results None recorded. Procedure Notes None recorded. Medical Equipment None Reported. Allergies Allergen ID Allergen Name Allergen Category Reaction Reaction Severity Criticality Documentation Date Start Date Code Code System Note Provider Name and Address Organization Details Recorded Time 27136 aspirin medicatio n Not available Not available Not available 05/04/2022 1191 RxNorm Not Available [facility] 20:05:20 Medications Name Sig Start Date Stop Date Status Note LastModified by Organization Details LastModified Time amoxicill in 500 mg capsule TAKE 1 CAPSULE BY MOUTH THREE TIMES A DAY FOR 5 DAYS active Not Available Not Available No t Available doxycycli ne hyclate 100 mg capsule TAKE 1 CAPSULE BY MOUTH TWICE A DAY active Not Available Not Available No t Available labetalol 200 mg tablet TAKE 1 TABLET BY MOUTH EVERY DAY active Not Available Not Available No t Available azithromy yao 250 mg tablet TAKE 2 TABLETS BY MOUTH TODAY, THEN TAKE 1 TABLET DAILY FOR 4 DAYS 11/18 completed Not Available Not Available Not Available fluconazo le 150 mg tablet TAKE 1 TABLET BY MOUTH ON DAY 1, 3, AND 7 active Not Available Not Available No t Available hydrocodo ne 5 mg-acetam inophen 325 mg tablet TAKE 1 TABLET BY MOUTH EVERY 4 HOURS NEEDED 11/18 completed Not Available Not Available Not Available Medrol (Erlin) 4 mg tablets in a dose pack Take 1 dose pk by oral route as directed . 12/06 completed Not Available Not Available Not Available phentermi ne 37.5 mg tablet Take 1 tablet every day by oral route in the morning. 2022 active Not Available Not Available Not Avai lable amlodipin e 5 mg tablet Take 1 tablet every day by oral route. 02/08 completed Not Available Not Available Not Available meclizine 25 mg tablet Take 1 tablet 3 times a day by oral route as needed. 02/18 completed Not Available Not Available Not Available amlodipin e 10 mg tablet TAKE 1 TABLET BY MOUTH EVERY DAY active Not Available Not Available No t Available cephalexi n 500 mg capsule TAKE 1 CAPSULE BY MOUTH TWICE A DAY FOR 7 DAYS active Not Available Not Available No t Available ferrous sulfate 325 mg (65 mg iron) tablet Take 1 tablet every day by oral route. 06/10 completed Not Available Not Available Not Available ibuprofen 200 mg tablet Take 1 tablet every 6 hours by oral route as needed. 2020 active Sometime s uses capsules as well Not Available Not Available Not Available letrozole 2.5 mg tablet TAKE ONE TABLET BY MOUTH ON DAYS 5-9 active Not Available Not Available No t Available hydrocort isone 2.5 % topical ointment APPLY TO FACE TWICE A DAY X 2 WEEKS, THEN NEEDED FOR FLARES active Not Available Not Available No t Available cefdinir 300 mg capsule TAKE 1 CAPSULE BY MOUTH TWICE A DAY active Not Available Not Available No t Available amoxicill in 875 mg-potass ium clavulana te 125 mg tablet Take 1 tablet twice a day by oral route for 7 days. 06/28 completed Not Available Not Available Not Available bupropion HCl XL 150 mg 24 hr tablet, extended release Take 1 tablet every day by oral route in the morning. 09/01 completed Not Available Not Available Not Available nitrofura ntoin monohydra te/macroc rystals 100 mg capsule Take 1 capsule every 12 hours by oral route for 5 days. 02/08 completed Not Available Not Available Not Available BD Ultra-Fin e Mini Pen Needle 31 gauge x /16 USE WITH SAXENDA active Not Available Not Available No t Available NovoFine Plus 32 gauge x 03/11 needle active Not Available Not Available Not Available Saxenda 3 mg/0.5 mL (18 mg/3 mL) subcutane ous pen injector INJECT 3MG UNDER THE SKIN ONCE DAILY. active Not Available Not Available No t Available ID NOW COVID-19 Test Kit TEST DIRECTED 02/08 completed Not Available Not Available Not Available Twirla 120 mcg-30 mcg/24 hr transderm al patch 02/18 completed Not Available Not Available Not Available One-A-Day Women's Complete( vK) 2020 active Not Available Not Available Not Avai lable Vitals Date Recorded Body height Body mass index (BMI) Body weight Body temperature Heart rate Oxygen saturation Oxygen saturation in Arterial blood by Pulse oximetry Systolic blood pressure Diastolic blood pressure Provider Name and Address Organization Details Last Updated DateTime 3 154.94 cm 30 kg/m2 30844.1 9 g 97.8 [degF] 98 /min 99 % 99 % 118 mm[Hg] 72 mm[Hg] Rosana Darby MA [facility] [employer] [facility] 3 10:07:55 Date Recorded Body height Body mass index (BMI) Body weight Body temperature Heart rate Oxygen saturation Oxygen saturation in Arterial blood by Pulse oximetry Systolic blood pressure Diastolic blood pressure Provider Name and Address Organization Details Last Updated DateTime 3 154.94 cm 30.8 kg/m2 97092.5 6 g 97.9 [degF] 60 /min 98 % 98 % 126 mm[Hg] 78 mm[Hg] Rosana Darby MA [facility] [employer] [facility] 3 10:43:05 Date Recorded Body height Body mass index (BMI) Body weight Body temperature Heart rate Oxygen saturation Oxygen saturation in Arterial blood by Pulse oximetry Systolic blood pressure Diastolic blood pressure Provider Name and Address Organization Details Last Updated DateTime 3 154.94 cm 30.4 kg/m2 21768.3 7 g 97.9 [degF] 94 /min 98 % 98 % 124 mm[Hg] 72 mm[Hg] Rosana Darby MA [facility] [employer] [facility] 3 10:24:18 Date Recorded Body height Body mass index (BMI) Body weight Body temperature Heart rate Oxygen saturation Oxygen saturation in Arterial blood by Pulse oximetry Systolic blood pressure Diastolic blood pressure Provider Name and Address Organization Details Last Updated DateTime 3 154.94 cm 32.5 kg/m2 94777.8 9 g 98 [degF] 92 /min 99 % 99 % 122 mm[Hg] 74 mm[Hg] Rosana Darby MA [facility] [employer] [facility] 3 10:35:02 Date Recorded Body mass index (BMI) Body height Heart rate Body temperature Body weight Systolic blood pressure Diastolic blood pressure Provider Name and Address Organization Details Last Updated DateTime 2 29.1 kg/m2 154.94 cm 89 /min 97.8 [degF] 62269.2 2 g 120 mm[Hg] 72 mm[Hg] Not Available [facility] 3 20:02:21 Social History Question Answer Notes LastModified by Organizat ion Details LastModified Time Tobacco Smoking Status Former Smoker Quit in 2020 Not Available [facility] 05/04/2022 20:01:41 What Is Your Level Of Caffeine Consumption? Occasional MIGRATION.[id number] Information not available 05/04/2022 In The 14 Days Before Symptom Onset, Have You Had Close Contact With A Laboratory-confir med COVID-19 While That Case Was Ill? No MIGRATION.01363 [id number] Information not available 05/04/2022 In The 14 Days Before Symptom Onset, Have You Had Close Contact With A Person Who Is Under Investigation For COVID-19 While That Person Was Ill? No MIGRATION.00842 80597 Information not available 05/04/2022 What Type Of Diet Are You Following? SPECIFIC MIGRATION.86944 [id number] Information not available 05/04/2022 Which Illicit Or Recreational Drugs Have You Used? Cannabis MIGRATION.97967 65066 Information not available 05/04/2022 What Is The Highest Grade Or Level Of School You Have Completed Or The Highest Degree You Have Received? [id number] MIGRATION.94390 57019 Information not available 05/04/2022 Have There Been Any Changes To Your Family Or Social Situation? No MIGRATION.58077 62214 Information not available 05/04/2022 What Is The Fluoride Status Of Your Home? Unknown MIGRATION.93216 36590 Information not available 05/04/2022 Are There Any Guns Present In Your Home? No MIGRATION.09150 19593 Information not available 05/04/2022 Do You Use Insect Repellent Routinely? No MIGRATION.25924 12598 Information not available 05/04/2022 Where Do You Live? Apartment MIGRATION.45739 04034 Information not available 05/04/2022 What Was The Date Of Your Most Recent Tobacco Screening? 11/03/2022 [email or web address] Information not available 11/03/2022 Do You Have Any Pets? Yes MIGRATION.29850 89291 Information not available 05/04/2022 Do You Use Your Seat Belt Or Car Seat Routinely? Yes MIGRATION.88928 33820 Information not available 05/04/2022 Do You Have Smoke And Carbon Monoxide Detectors In Your Home? Yes MIGRATION.81522 84824 Information not available 05/04/2022 At What Age Did You Start Smoking Tobacco? 17 MIGRATION.79799 34565 Information not available 05/04/2022 Are You Passively Exposed To Smoke? Yes MIGRATION.07227 71547 Information not available 05/04/2022 Are There Any Smokers In Your House? Yes MIGRATION.44116 75591 Information not available 05/04/2022 How Much Tobacco Do You Smoke? 1 PPW MIGRATION.03946 06229 Information not available 05/04/2022 Do You Use Sunscreen Routinely? No MIGRATION.93450 99159 Information not available 05/04/2022 Have You Recently Traveled Abroad? No MIGRATION.74558 07750 Information not available 05/04/2022 Do You Have Any Dietary Restrictions? No MIGRATION.23051 42013 Information not available 05/04/2022 Sex: Unknown Functional Status Question Answer Note LastModified by [employer] Details LastModified Time What is your level of alcohol consumption? Occasional MIGRATION.1979626 026 Information not available 05/04/2022 Do you or have you ever used smokeless tobacco? Former smokeless tobacco user MIGRATION.1662416 026 Information not available 05/04/2022 What is your occupation? [employer] MIGRATION.3724936 026 Information not available 05/04/2022 Do you or have you ever used e-cigarettes or vape? Former user of electronic cigarettes MIGRATION.2487552 026 Information not available 05/04/2022 What is your exercise level? Moderate MIGRATION.4055171 026 Information not available 05/04/2022 Mental Status Question Answer Note LastModified by [employer] Details LastModified Time Do you feel stressed (tense, restless, nervous, or anxious, or unable to sleep at night)? [id number] MIGRATION.[id number] Information not available 05/04/2022 Family History Relationship Description Onset Age of this Age Resolved Age Notes LastModified by Organization Details LastModified Time Mother Chronic obstructive pulmonary disease MIGRATION.098 [id number] Not available 05/04/2022 20:02:15 Father Family history of malignant neoplasm MIGRATION.514 [id number] Not available 05/04/2022 20:02:15 Father Diabetes mellitus MIGRATION.217 [id number] Not available 05/04/2022 20:02:15 Father Hypertensive disorder MIGRATION.886 [id number] Not available 05/04/2022 20:02:15 Medical History Condition Response NERVE DISEASE N BLINDNESS N RHEUMATIC FEVER N KIDNEY STONES N BLADDER PROBLEMS N MRSA N OTHER # 1 N POLIO N LUNG DISEASE/DISORDER N COPD N RADIATION / CHEMOTHERAPY N Other # 2 N BLOOD DISEASES N EAR OR HEARING PROBLEMS N MUMPS N BOWEL PROBLEMS N DEPRESSION (INCLUDING POST ) Y STROKE/TIA N ULCERS N BENIGN PROSTATIC HYPERPLASIA N MEASLES N MYOCARDIAL INFARCTION N OBESITY Y GERD/NAUSEA N ANEURYSM N URINARY/BLADDER/KIDNEY PROBLEMS N CORONARY ARTERY DISEASE (CAD) N ADDICTION CONCERNS N ENDOMETRIOSIS N Impotence N USE OF BLOOD THINNERS N SKIN PROBLEMS N GASTROINTESTINAL DISORDER N PERIPHERAL VASCULAR DISEASE N MUSCLE,JOINT OR BONE PROBLEMS N GASTROINTESTINAL BLEEDING N BLOOD CLOTS N ASTHMA N CATARACTS N ERECTILE DYSFUNCTION N VARICOSITIES N GI PROBLEMS N Low Testosterone N INFERTILITY N AIDS/HIV N CHEMOTHERAPY / RADIATION N LIVER DISEASE N MALE HYPOGONADISM N HYPERTENSION Y Deficiency N TOURETTE'S N ANXIETY DISORDER Y BLOOD TRANSFUSION N ANEMIA/BLOOD DISORDER N CHRONIC EAR INFECTIONS N BRONCHITIS N TUBERCULOSIS N GLAUCOMA N FOOT PROBLEM N DIVERTICULITIS N SLEEP APNEA N CHICKENPOX N INFECTIOUS DISEASE N HEART ARRHYTHMIA N PROSTATE N INSOMNIA N HIGH CHOLESTEROL / HYPERLIPIDEMIA N HYPERTHYROIDISM N EYE PROBLEMS Y EDEMA N CHRONIC PAIN SYNDROME N HYPOTHYROIDISM N CAROTID BLOCKAGE N CONSTIPATION N BACK / NECK PROBLEMS N HAVE YOU BEEN HOSPITALIZED OR SEEN IN [facility] IN THE PAST YEAR ? N ATHEROSCLEROSIS N BREAST PROBLEMS N DIALYSIS N ECZEMA N OSTEOPOROSIS N ARTHRITIS N NO SIGNIFICANT PAST MEDICAL HISTORY N APPENDICITIS N DIABETES, TYPE N BAD TEETH N ENT N HEARTBURN / REFLUX N AUTISM SPECTRUM DISORDER (ASD) N HEPATITIS / LIVER DISEASE N GOUT N SLEEP DISORDER N ALZHEIMER'S DISEASE N Brain Problems N HERPES N DEMENTIA N HEADACHES/MIGRAINES N SEIZURES/EPILEPSY N VASCULAR DISEASE N PACEMAKER N Blood Disorder N DIZZINESS N HEART DISEASE/HEART PROBLEMS N KIDNEY DISEASE N MULTIPLE SCLEROSIS N CARDIAC ARRHYTHMIA N CANCER: SPECIFY N ATRIAL FIBRILLATION N Gall Stones N PULMONARY EMBOLISM N AUTOIMMUNE DISEASE N Gynecological History Statement/Question Response Abnormal Pap Y Flow Moderate Date of LMP 06/23/2020 Dislike of Light during Menstrual Headac he N STIs/STDs Y Date of Last Pap Duration of Flow (days) 7 Current Control Method None Age at Menarche 14 Sexually Active? Y Weight gain N Menses Monthly Y Obstetrics History GPAL:G 0 P 0 0 0 0 Immunizations Vaccine Type Date Status Note Provider Nam e and Address Organization Details Recorded Time COVID-19, mRNA, LNP-S, PF, 30 mcg/0.3 mL dose 11/30/2020 completed Not Available [facility] 3 20:05:11 COVID-19, mRNA, LNP-S, PF, 30 mcg/0.3 mL dose 11/06/2020 completed Not Available [facility] 3 20:05:12 Past Encounters Encounter ID Performer Location Encounter Start Date Encounter Closed Date Diagnosis/Indication Diagnosis SNOMED-CT Code Diagnosis ICD10 Code Diagnosis Note [id number] MD CATIA CoyS_[facility] Internal Med [facility] [address] , [address] [address] 07/10/2020 00:00:00 07/10/2020 21:53:55 [id number] Radha mcdermott MD S_G Internal Med [facility] [address] , [address] [address] 08/10/2020 00:00:00 08/10/2020 17:23:40 [id number] Radha mcdermott MD S_G Internal Med [facility] [address] [place] [address] , [place] [address] 02/08/2021 00:00:00 02/08/2021 12:16:49 [id number] Radha mcdermott MD S_G Internal Med [facility] [address] , [address] [address] 06/10/2021 00:00:00 06/10/2021 10:20:46 [id number] MD CATIA CoyS_G Internal Med [facility] [address] , [address] [address] 11/18/2021 00:00:00 11/18/2021 11:10:53 [id number] MD MARCELA Coy_G Internal Med [facility] [address] , [address] [place] [address] 01/14/2022 00:00:00 01/14/2022 13:13:18 [id number] Radha mcdermott MD [facility] Internal Med [facility] [address] [place] [address] 02/18/2022 00:00:00 02/18/2022 11:55:14 [id number] Radha mcdermott MD [facility] Internal Med [facility] [address] [facility] [address] [place] [address] 05/24/2022 09:55:47 05/24/2022 10:53:08 Essential hypertension 10467159 I10 follows cardiology - Dr. Barragan- on amlodipine Wants to lose weight 170 562888 Z71.3 restart phentermin e per her request- she is aware side effects, risks, and benefits Intermitte nt palpitations 127821524 R00.2 as above- follows cardiology Obesity 733037468 E66.9 recommend healthy, well balanced mealsfocus on lean meats, fresh vegetables , fresh fruits, whole grainsredu ce fast/proce ssed foods or eating out to no more than 1-2 times per weekaim to get 30 min of exercise most days of the week- walking is a great choiceLong discussion of nutrition- recommend she track macros on an bibi such as [employer] pal or macro factor so she has an idea of where she is with her nutrition. Recommend she get at least 100 g to 120 g of protein per day. Recommend she stop thinking of foods as good or bad , and trying to incorporat e foods that she enjoys into her daily nutrition. We talked about eating 90% whole foods and 10% of treats like sweets, desserts, or alcohol. We talked about trying to split her nutrition across at least 2 or 3 meals instead of 1 large meal per day. Recommend she keep alcoholic drinks to 2 per week at maximum. Continue in the gym with both her weight training and her cardio. Iron deficiency 53941641 E61.1 she stopped her ferrous sulfate 2/2 constipati oncan try ferrous gluconate instead of ferrous sulfate, or can try flintstone with irondeclin es labs today to recheck as she's been feeling ok Hyperlipidemia 14585163 E78.5 no meds, working on lifestyle Constipation 11362306 K5 9.00 likely a side effect of her Saxenda, which she tells me she does not want to stopshe doesn't have much fiber in her diet- really needs to increase this- green leafy vegetables , fruit with skin, can also get an OTC fiber supplement push water, aim to get exercise most days of the weekcall office if no improvemen t after above Cholesterol screening 27 0690000 Z13.220 Diabetes m ellitus screening 653115640 Z13.1 Adult heal th examination 552498888 Z00.00 Mixed anxi ety and depressive disorder 339317569 F41.8 Start Wellbutrin per her request-sh e is aware side effects, risks, and benefits Call office if any change in mood or behavior She declines Psychiatry and/or counseling referral today [id number] Radha mcdermott MD [facility] Internal Med [address] [facility], [address] [place] [address] 06/28/2022 10:32:30 06/28/2022 11:09:51 Essential hypertension 94194338 I10 follows cardiology - Dr. Barragan- on amlodipine Wants to lose weight 170 162003 Z71.3 continue phentermin e per her request- she is aware side effects, risks, and benefits Intermitte nt palpitations 016301591 R00.2 as above- follows cardiology Obesity 350781842 E66.9 recommend healthy, well balanced mealsfocus on lean meats, fresh vegetables , fresh fruits, whole grainsredu ce fast/proce ssed foods or eating out to no more than 1-2 times per weekaim to get 30 min of exercise most days of the week- walking is a great choiceLong discussion of nutrition- recommend she track macros on an bibi such as my fitness pal or macro factor so she has an idea of where she is with her nutrition. Recommend she get at least 100 g to 120 g of protein per day. Recommend she stop thinking of foods as good or bad , and trying to incorporat e foods that she enjoys into her daily nutrition. We talked about eating 90% whole foods and 10% of treats like sweets, desserts, or alcohol. We talked about trying to split her nutrition across at least 2 or 3 meals instead of 1 large meal per day. Recommend she keep alcoholic drinks to 2 per week at maximum. Continue in the gym with both her weight training and her cardio. Again talked with her about her nutrition- would recommend she track nutrition as she is likely eating more calories than she realizes. Also needs to increase her protein. Gave her the names of some nutrition coaches as well. Over 30 min spent with patient and over half spent on counseling . Iron deficiency [id number] E61.1 she stopped her ferrous sulfate 2/2 constipati oncan try ferrous gluconate instead of ferrous sulfate, or can try flintstone with irondeclin es labs today to recheck as she's been feeling ok Hyperlipidemia 85882732 E78.5 no meds, working on lifestyle Constipation 30926543 K5 9.00 likely a side effect of her Saxenda, which she tells me she does not want to stopshe doesn't have much fiber in her diet- really needs to increase this- green leafy vegetables , fruit with skin, can also get an OTC fiber supplement push water, aim to get exercise most days of the weekcall office if no improvemen t after above Cholesterol screening 27 4071110 Z13.220 Diabetes m ellitus screening 955587796 Z13.1 Adult heal th examination 920945153 Z00.00 Mixed anxi ety and depressive disorder 430790093 F41.8 did not start wellbutrin due to costdoes not want to start another med at this timeCall office if any change in mood or behaviorSh e declines Psychiatry and/or counseling referral today [id number] Radha mcdermott MD [facility] [address] [address] [place] [address] 09/01/2022 10:16:28 09/01/2022 10:41:08 Essential hypertension 49423372 I10 follows cardiology - Dr. Barragan- on amlodipine Wants to lose weight 170 473944 Z71.3 continue phentermin e per her request- she is aware side effects, risks, and benefits Intermitte nt palpitations 197150583 R00.2 as above- follows cardiology Obesity 303236737 E66.9 recommend healthy, well balanced mealsfocus on lean meats, fresh vegetables , fresh fruits, whole grainsredu ce fast/proce ssed foods or eating out to no more than 1-2 times per weekaim to get 30 min of exercise most days of the week- walking is a great choiceLong discussion of nutrition- recommend she track macros on an bibi such as my fitness pal or macro factor so she has an idea of where she is with her nutrition. Recommend she get at least 100 g to 120 g of protein per day. Recommend she stop thinking of foods as good or bad , and trying to incorporat e foods that she enjoys into her daily nutrition. We talked about eating 90% whole foods and 10% of treats like sweets, desserts, or alcohol. We talked about trying to split her nutrition across at least 2 or 3 meals instead of 1 large meal per day. Recommend she keep alcoholic drinks to 2 per week at maximum. Continue in the gym with both her weight training and her cardio. Again talked with her about her nutrition- would recommend she track nutrition as she is likely eating more calories than she realizes. Also needs to increase her protein. Gave her the names of some nutrition coaches as well. We discussed starting back with just one healthy choice she can make per day rather than getting overwhelme d with everything at once.Over 25 min spent with patient and over half spent on counseling . Iron deficiency 03351130 E61.1 she stopped her ferrous sulfate 2/2 constipati oncan try ferrous gluconate instead of ferrous sulfate, or can try flintstone with irondeclin es labs today to recheck as she's been feeling ok Hyperlipidemia 33756748 E78.5 no meds, working on lifestyle Constipation 21415200 K5 9.00 likely a side effect of her Saxenda, which she tells me she does not want to stopshe doesn't have much fiber in her diet- really needs to increase this- green leafy vegetables , fruit with skin, can also get an OTC fiber supplement push water, aim to get exercise most days of the weekcall office if no improvemen t after above Cholesterol screening 27 9494758 Z13.220 Diabetes m ellitus screening 051287220 Z13.1 Mixed anxi ety and depressive disorder 970756132 F41.8 did not start wellbutrin due to costdoes not want to start another med at this timeCall office if any change in mood or behaviorSh e declines Psychiatry and/or counseling referral today [id number] Radha mcdermott MD [facility] [address] [facility] [address] [place] [address] 11/03/2022 10:27:41 11/03/2022 11:14:21 Essential hypertension 02724988 I10 follows cardiology - Dr. Barragan- on amlodipine Intermitte nt palpitations 121447627 R00.2 as above- follows cardiology Obesity 271990504 E66.9 recommend healthy, well balanced mealsfocus on lean meats, fresh vegetables , fresh fruits, whole grainsredu ce fast/proce ssed foods or eating out to no more than 1-2 times per weekaim to get 30 min of exercise most days of the week- walking is a great choiceLong discussion of nutrition- recommend she track macros on an bibi such as my fitness pal or macro factor so she has an idea of where she is with her nutrition. Recommend she get at least 100 g to 120 g of protein per day. Recommend she stop thinking of foods as good or bad , and trying to incorporat e foods that she enjoys into her daily nutrition. We talked about eating 90% whole foods and 10% of treats like sweets, desserts, or alcohol. We talked about trying to split her nutrition across at least 2 or 3 meals instead of 1 large meal per day. Recommend she keep alcoholic drinks to 2 per week at maximum. Continue in the gym with both her weight training and her cardio. Again talked with her about her nutrition- would recommend she track nutrition as she is likely eating more calories than she realizes. Also needs to increase her protein. Gave her the names of some nutrition coaches as well. We talked about cooking meals at home rather than eating out. We discussed starting back with just one healthy choice she can make per day rather than getting overwhelme d with everything at once.Over 25 min spent with patient and over half spent on counseling . Iron deficiency 85910840 E61.1 she stopped her ferrous sulfate 2/2 constipati on can try ferrous gluconate instead of ferrous sulfate, or can try flintstone with iron declines labs today to recheck as she's been feeling ok Hyperlipidemia 99983205 E78.5 no meds, working on lifestyle Mixed anxi ety and depressive disorder 966795072 F41.8 did not start wellbutrin due to costdoes not want to start another med at this timeCall office if any change in mood or behaviorSh e declines Psychiatry and/or counseling referral today Health Concerns Section Related Observation LastModified by Organization Detai ls LastModified Time None Recorded Concern Status LastModified by Organization Details LastModified Time None Recorded Advance Directives Directive None Recorded Payers Insurance Date Sequence Insurance Name Policy Number Policy Mota Covered Member ID Mota Member ID Guarantor Name 05/01/2023 1 [place] [id number] Zandra Rice [id number] Zandra Rice Notes Date Note Type Note Provider Name and Address Organization Details Recorded Time 05/24/2022 text/html Zandra presents today for follow-up. We had previously started her on phentermine, however she had a lapse in insurance. She has been off it for a few months. She would like to restart it. When she was on it she did not have any side effects. She continues on her Saxenda from her gynecologist. She is thinking about switching to Wegovy but doesn't want to do that just yet. She did not get her labs that we ordered last time done, we will reorder those for her. She tells me today she only wants the basic screening labs she is not wanting to get any iron levels done. Today she also complains of some anxiety and depression. She was on meds previously but is not currently on medication. She is wanting to try something. She is specifically asking for Wellbutrin. She denies any SI or HI today. She thought about counseling but has decided not to do that. Mellissa Llanos, WILMA-C [address] [facility], [facility] [address], [place], [address], [facility] Med[employer] 05/24/2022 13:09:14 06/28/2022 text/html Zandra presents today for follow-up. Last visit, she had wanted to start Wellbutrin for some anxiety and depression. She decided not to pick that up as it was too expensive. She tells me her symptoms have gotten better and right now she would not like to try different med. She feels like she can handle her symptoms without medication at this time. She denies any SI or HI today. She also wanted to continue the phentermine. She has actually gained a few lb since I last saw her. She has been going to the gym and getting some workouts in. However, she is not tracking her nutrition. She thinks she might be over eating at times. She reports last week she go to the urgent care for sinus infection they put her on antibiotics. She is feeling better. She still needs to get her labs done- we gave her orders last visit. SALLY Jain [address] [employer], [address], [place], [address], [employer] 06/28/2022 12:12:19 09/01/2022 text/html Zandra presents today for follow-up. Last visit, we had a long discussion about prioritizing protein and tracking her nutrition. She had done this successfully for a few weeks and was able to lose 12 lb. She reports last week she went on vacation to the [facility] and had some uncontrolled eating along with heavy alcohol consumption. She gained back 10 of those 12 lb. She is frustrated and is having a hard time getting started again. Blood pressures been well controlled on the amlodipine. She reports her mood is stable off of the Wellbutrin currently. She denies any SI or HI today. She still has not gotten her labs done. I encouraged her again to get those done. She does have orders at home. SALLY Jain [address], [address], [place], [address], s[place]ash 09/01/2022 10:53:26 11/03/2022 text/html Zandra presents today for follow up. She had to stop the Saxenda because it's backordered. She has been eating out a lot, not watching her portions, not getting any exercise. She is now on letrozole from [employer] as she is trying to get . Mood remains stable off meds. She denies any SI/HI today. SALLY Jain [address], [address], [place], [address], [employer] 11/03/2022 15:44:20 OBGyn Episode No OBEpisode recorded.
[2024-08-20 19:16] LABS: Basophils Percent Auto 0.6 % (0.2-1.2); Eosinophils Percent Auto 0.3 % (0-4.4); Hematocrit 39.6 % (37.0-47.0); Hemoglobin 12.9 g/dL (12.0-15.0); Immature Granulocyte Absolute 0.01 K/mm3 (0.00-0.031); Immature Granulocyte Percent A 0.3 % (0-0.5); Lymphocytes Absolute Auto 1.62 K/mm3 (0.9-3.2); Lymphocytes Percent Auto 45.6 % (18.3-44.2); Mean Corpuscular HGB Conc 32.6 g/dl (32-36); Mean Corpuscular Hemoglobin 29.6 pg (26-34); Mean Corpuscular Volume 90.8 fl (80-100); Monocytes Absolute Auto 0.3 K/mm3 (0.1-0.6); Monocytes Percent Auto 8.5 % (2.6-8.5); Neutrophils Absolute Auto 1.6 K/mm3 (1.3-6.7); Neutrophils Percent Auto 44.7 % (45.5-73.1); Platelet Count Result 243 k/mm3 (150-375); Red Blood Count 4.36 M/mm3 (4.2-5.4); Red Cell Distribution Width 13.7 % (11.5-14.5); White Blood Count 3.6 K/mm3 (4.5-10.0)
[2024-08-20 19:45] LABS: Alanine Aminotransferase 14 U/L (6-35); Albumin Level 4.2 g/dL (3.5-5.1); Alkaline Phosphatase 50 U/L (38-126); Anion Gap 8 mmol/L (4-12); Aspartate Amino Transferase 25 U/L (14-36); Bilirubin,Total 0.6 mg/dL (0.2-1.3); Blood Urea Nitrogen 13 mg/dL (7-17); Calcium 9.1 mg/dL (8.4-10.2); Carbon Dioxide 24 mmol/L (22-30); Chloride 105 mmol/L (98-107); Cholesterol 161 mg/dL (0-200); Estimated Glomerular Filt Rate > 60; Glucose 76 mg/dL (65-110); HDL Direct 41 mg/dL; Potassium 4.2 mmol/L (3.4-5.0); Sodium 137 mmol/L (137-145); Total Protein 6.8 g/dL (6.3-8.2); Triglycerides 56 mg/dL (<150)
[2024-08-20 19:56] LABS: LDL Cholesterol Direct 96 mg/dL
[2024-08-20 20:39] LABS: Vitamin D 25 Hydroxy 31.4 ng/mL
== END 2024-08-20 14:28 | disposition home or self-care (01) ==
LOC: ANHGOSHLAB 14:28
PROVIDERS: PCP Internal Medicine; Visit Provider Nurse Practitioner
DX: E55.9 Vitamin D deficiency, unspecified (principal); I10 Essential (primary) hypertension
CPT/HCPCS: 36415; 80053; 80061; 82306; 85025

== ENCOUNTER 2024-10-16 11:43 | Emergency (ER) | payer BC, MEDICAID, SELFPAY ==
--- NOTE | ~2024-10-16 | CT_ITS ---
EXAMINATION: CT brain wo con DATE: 10/16/2024 13:02 INDICATION: Headache and bilateral visual disturbance TECHNIQUE: Computed tomography (CT) of the head was performed without intravenous contrast. Sagittal and coronal reconstructions were performed. The mA was adjusted according to patient size. Iterative reconstruction technique was employed. The dose-length product was 529.67 mGy-cm. COMPARISON: None FINDINGS: No acute intracranial hemorrhage, acute infarction or abnormal extra axial fluid collection. Ventricl es are normal and symmetric. No mass/mass effect. The orbits, paranasal sinuses and mastoid air cells are normal. IMPRESSION: 1. Normal head CT. Reviewed, dictated and finalized at location A. IMPRESSION: 1. Normal head CT.
--- OUTSIDE RECORDS SUMMARY | 2024-10-16 11:46 | XMS_ITS | Clinical Summary ---
Author Organization [facility] [employer] Address [address] [place] [address] Care Team Providers Care Wedger Name Role Phone Mellissa Llanos HENOK Primary Care Provider [phone] Source Comments [facility] [employer],non-owned Affiliates and Associated Physician Practices is amultiple site organization consisting of ambulatory clinics and hospital sitesin [place], [place], [place]. This disclosure is being madepursuant to the Care Everywhere program and may not contain all information available regarding this patient. 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 Gender Identity Not on file Sexual Orientation Not on file Last Filed Vital Signs Vital Sign Reading Time Taken Comments Blood Pressure 126/72 02/24/2019 11:09 AM PLASTIC MAKER Pulse 112 02/24/2019 11:09 AM PLASTIC MAKER Temperature 37 C (98.6 F) 02/24/2019 11:09 AM PLASTIC MAKER Respiratory Rate 18 02/24/2019 11:09 AM PLASTIC MAKER Oxygen Saturation 98% 02/24/2019 11:09 AM PLASTIC MAKER Inhaled Oxygen Concentration - - Weight 113.4 kg (250 lb) 02/24/2019 11:09 AM PLASTIC MAKER Height 154.9 cm (5' 1) 02/24/2019 11:09 AM PLASTIC MAKER Body Mass Index 47.24 02/24/2019 11:09 AM PLASTIC MAKER Plan of Treatment Health Maintenance Due Date Last Done Comments HIV SCREENING 2012 HPV VACCINE (1 - 3-dose series) 2012 HEPATITIS C SCREENING 11/08/2015 DTAP/TDAP/TD VACCINES (1 - Tdap) 2016 HEPATITIS B VACCINE (1 of 3 - 19+ 3-dose series) 2016 COVID-19 VACCINE (1 - 2023-2 5 season) 2023 DEPRESSION SCREENING 03/06/2024 INFLUENZA VACCINE (#1) 2024 ZOSTER VACCINE (1 of 2) 11/13/2047 [...] MEDICAID - OUT OF STATE Care Teams Wedger Relationship Specialty Start Date End Date Mellissa Llanos APRN-CNP [address] [facility] [address] [place] [address] PCP - General 10/01/20
--- OUTSIDE RECORDS SUMMARY | 2024-10-16 11:46 | XMS_ITS | Continuity of Care Document ---
Author Organization [facility] Address [address] [place] [address] Phone Care Team Providers Care Perianesthesia Rn Name Role Phone Godwin Reyes MD Unavailable [...] Known Problems Procedures Procedure Date OFFICE/OUTPATIENT VISIT, [facility] OFFICE/OUTPATIENT VISIT, [facility] Advance Directives Directive Yes / No Effective Date File Name No Information Encounters Encounter Description Practice Location Reason(s) For Visit Diagnoses Date Provider Providers Copied on Encounter OFFICE/OUTPA TIENT VISIT, EST [facility], [address] [place], [address], [place] tel:[phone] [facility] weight loss1 (chief complaint) palpitatio n1 (chief complaint) HTN (chief complaint) PalpitationsEssenti al (primary) hypertensionAbnorma l weight loss 0 Eric Connelly. [address] [facility] [place], [address] , [place]. tel:[phone] Referring Provider: Godwin Reyes [address] [facility] [address], [place], [place], [address]. tel:[phone] OFFICE/OUTPA TIENT VISIT, [facility], [address] [place], [address], [place] tel:[phone] [facility] palpitatio n1 (chief complaint) PalpitationsDizzine ss 9 Eric Connelly. [address], [facility] [address], [place], [place], [address] , . tel:[phone] Referring Provider: Godwin Reyes [address], [place], [place], [address]. tel:[phone] Family History Family Member Type Diagnosis Age At Onset Mother Problem (finding) Depression Brother Problem (finding) Alive and well Father Problem (finding) heart disease, not sure what and when, lung CA, DM Payers Payer name Insurance type Covered libertarian ID Authoriza tion(s) No Information Social History [...] Date Complaint History Of Prese nt Illness HTN Pt has HTN Pt de nies any chest pain or headache weight loss1 Pt has been inte ntionally losing weight with diet and exercise. Pt denies any early satiety, nausea, vomiting, diarrhea, abdominal pain, blood in stool, bloating, appetite loss, etc. Pt has been working on low fat and low carb diet and increasing physical activity. palpitation1 Pt has frequent chest palpitation Pt denies any chest pain ,Pt denies any sob. Pt has a lot of anxiety also but she states that paxil did not do anything and she stopped it long time ago. Pt denies any depression or any suicidal thought ,Pt denies any crying spells. Pt had normal cardiac echo and holter monitor. palpitation1 Pt has frequent palpitation, blurred vision [...] Mental Status Date Cognitive Assessment Orientation - [place] ed to time, place, person, situation.
--- OUTSIDE RECORDS SUMMARY | 2024-10-16 11:46 | XMS_ITS | Continuity of Care Document ---
Author Organization [facility] Address [address] [facility] [address] [place] [address] Phone Care Team Providers Care Manager Solar Name Role Phone Morgan OD, Fam Unavailable Unavailable Procedures Procedure Date Eye Exam & Treatment Refraction Eye Exam, New Patient Advance Directives Directive Yes / No Effective Date File Name No Information Encounters Encounter Description Practice Location Reason(s) For Visit Diagnoses Date Provider Providers Copied on Encounter [facility], [address], [place], [place], [address], [place] tel:[phone] [facility] No Information 5200 9 Morgan OD Fam. [address] [facility] , [address], [place], [address], [place]. tel:[phone] [facility], [address] [place] [address] [address], [place], [place], [address], [place] tel:[phone] [facility] No Information 9[address] Sage Morejon. [address], [place], [place], [address], [place]. tel:[phone] Family History Family Member Type Diagnosis Age At Onset No Information Payers Payer name Insurance type Covered republican ID Authoriza tion(s) Medicaid [facility] [id number] Social History Type Description Quantity Date Captured [...]
[2024-10-16 11:58] VITALS: BP 121/78; PULSE 80; RESP 20; TEMP 36.8; O2SAT 100
--- OUTSIDE RECORDS SUMMARY | 2024-10-16 12:22 | XMS_ITS | Continuity of Care Document ---
Author Organization [facility] Address [address] [facility] [address] [place] [address] Phone Care Team Providers Care Labor Economist Name Role Phone Morgan OD, Fam Unavailable Unavailable Procedures Procedure Date Eye Exam & Treatment Refraction Eye Exam, New Patient Advance Directives Directive Yes / No Effective Date File Name No Information Encounters Encounter Description Practice Location Reason(s) For Visit Diagnoses Date Provider Providers Copied on Encounter [facility], [address], [place], [place], [address], [place] tel:[phone] [facility] No Information 5200 9 Morgan OD Fam. [address] [facility] , [address], [place], [address], [place]. tel:[phone] [facility], [address] [place] [address] [address], [place], [place], [address], [place] tel:[phone] [facility] No Information [address] Sage Morejon. [address], [address], [place], [place], [address], [place]. tel:[phone] Family History Family Member Type Diagnosis Age At Onset No Information Payers Payer name Insurance type Covered alliance party ID Authoriza tion(s) Medicaid [facility] [id number] Social History Type Description Quantity Date Captured [...]
--- OUTSIDE RECORDS SUMMARY | 2024-10-16 12:22 | XMS_ITS | Continuity of Care Document ---
Author Organization [facility] Address [address] [facility] [place] [address] Phone Care Team Providers Care Audio Operator Name Role Phone Godwin Reyes MD Unavailable [...] Known Problems Procedures Procedure Date OFFICE/OUTPATIENT VISIT, [facility] OFFICE/OUTPATIENT VISIT, [facility] Advance Directives Directive Yes / No Effective Date File Name No Information Encounters Encounter Description Practice Location Reason(s) For Visit Diagnoses Date Provider Providers Copied on Encounter OFFICE/OUTPA TIENT VISIT, EST [facility], [address] [place], [place], [address], [place] tel:[phone] [facility] weight loss1 (chief complaint) palpitatio n1 (chief complaint) HTN (chief complaint) PalpitationsEssenti al (primary) hypertensionAbnorma l weight loss 0 Eric Connelly. [address] [facility] [place], [address] , [place]. tel:[phone] Referring Provider: Godwin Reyes [address] [facility] [address], [place], [place], [address]. tel:[phone] OFFICE/OUTPA TIENT VISIT, [facility], [address] [place], [address], [place] tel:[phone] [facility] palpitatio n1 (chief complaint) PalpitationsDizzine ss 9 Eric Connelly. [address] [facility] [address], [place], [place], [address] , . tel:[phone] Referring Provider: Godwin Reyes [address], [place], [place], [address]. tel:[phone] Family History Family Member Type Diagnosis Age At Onset Mother Problem (finding) Depression Brother Problem (finding) Alive and well Father Problem (finding) heart disease, not sure what and when, lung CA, DM Payers Payer name Insurance type Covered republican ID Authoriza tion(s) No Information Social History [...] Mental Status Date Cognitive Assessment Orientation - [place] ed to time, place, person, situation.
--- OUTSIDE RECORDS SUMMARY | 2024-10-16 12:22 | XMS_ITS | Clinical Summary ---
Author Organization [facility] [employer] Address [address] [place] [address] Care Team Providers Care Color Adviser Name Role Phone Mellissa Llanos HENOK Primary Care Provider [phone] Source Comments [facility] [employer],non-owned Affiliates and Associated Physician Practices is amultiple site organization consisting of ambulatory clinics and hospital sitesin [place], [place], [place] and [place]. This disclosure is being madepursuant to the Care Everywhere program and may not contain all information available regarding this patient. 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 Gender Identity Not on file Sexual Orientation Not on file Last Filed Vital Signs Vital Sign Reading Time Taken Comments Blood Pressure 126/72 02/24/2019 11:09 AM LUNCHEONETTE OPERATOR Pulse 112 02/24/2019 11:09 AM LUNCHEONETTE OPERATOR Temperature 37 C (98.6 F) 02/24/2019 11:09 AM LUNCHEONETTE OPERATOR Respiratory Rate 18 02/24/2019 11:09 AM LUNCHEONETTE OPERATOR Oxygen Saturation 98% 02/24/2019 11:09 AM LUNCHEONETTE OPERATOR Inhaled Oxygen Concentration - - Weight 113.4 kg (250 lb) 02/24/2019 11:09 AM LUNCHEONETTE OPERATOR Height 154.9 cm (5' 1) 02/24/2019 11:09 AM LUNCHEONETTE OPERATOR Body Mass Index 47.24 02/24/2019 11:09 AM LUNCHEONETTE OPERATOR Plan of Treatment Health Maintenance Due Date [...] MEDICAID - OUT OF STATE Care Teams Color Adviser Relationship Specialty Start Date End Date Mellissa Llanos APRN-CNP [address] [facility] [address] [place] [address] PCP - General 10/01/20
--- NOTE | 2024-10-16 12:29 | ED.EYEPROB ---
HPI - Eye Problem General Chief complaint: Eye Problems Stated complaint: headache Time Seen by Provider: 10/16/24 11:59 History of Present Illness HPI Narrative: This is a 28-year-old female with history of hypertension presents to the ED for visual disturbance. Patient states that since this morning, she been having intermittent visual field disturbances described discretely lines in her vision. She states it is intermittent. She states that she does have issues [place] upwards. Lots of few minutes at a time. Denies any eye pain. She has had a mild frontal headache. Denies changes in medicines, joint pains, traumatic injuries. Related Data Home Medications ?Medication ?Instructions ?Recorded ?Confirmed ?Last Taken ?Type amlodipine 10 mg tablet mg PO 06/19/24 06/19/24 Unknown History Allergies Allergy/AdvReac Type Severity Reaction Status Date / Time No Known Allergies Allergy Verified 10/16/24 12:46 Review of Systems Review of Systems: Gen.: Denies fevers or chills Eyes: Denies eye pain ENT: Denies congestion Respiratory: Denies shortness of breath or cough CV: Denies chest pain or palpitations GI: Denies abdominal pain nausea, emesis or diarrhea denies burning, urgency, frequency or hematuria Musculoskeletal: Denies back pain or muscle pain Neuro: Denies numbness, tingling, weakness or focal weakness Skin: Denies rash Except as documented, all other systems reviewed and negative [facility] Past Medical History Medical History Overweight HTN (hypertension) Bartholin cyst Surgical History Surgical History History of D&C Family History Family History Father Hypertension Diabetes mellitus Atrial fibrillation Mother Kidney failure Social History Social History (Updated 06/19/24 @ 14:50 by Joshua Briseno MA) Years smoked: 4 Smoking status: Former smoker Tobacco type: cigarettes Second hand tobacco smoke exposure: Yes Smoking end date: 03/06/20 Additional smoking assessment comments: 1/ ppd x 7 years Alcohol intake: former Drinks per week: 0 Alcohol use details: weekends Substance use: former Substance use type: does not use and marijuana Other substance usage details: smoking occasionally Last use: mar 2020 Do You Feel Safe in your Home?: Yes Lack of Transportation: No Lack of Food: Never True Current Housing: I Have Housing Concerned About Future Housing: No Difficulty Paying Gas/Electric Bills: No Difficulty Paying for Meds: No Currently Unemployed: No Education: High School Diploma/GED Difficulty w/ Childcare or Family Care: No Living arrangements: with family Gender identity (if verbalized by the patient): Female Sexual Orientation (if Verbalized by the Patient): Straight or Heterosexual Spiritual care concerns: No Exam Narrative: APPEARANCE: No acute distress, nontoxic, resting in bed EYES: EOMI. PERRL HEENT: Normocephalic, atraumatic, OMM RESPIRATORY: No respiratory distress CARDIOVASCULAR: Regular rate and rhythm without murmurs rubs or gallops. ABDOMINAL: Nondistended MUSCULOSKELETAl: Moves all extremities. No clubbing, cyanosis or edema. NEURO: Awake and alert. Following commands, speech normal, no focal deficits SKIN:: Warm, dry. No rashes lesions or abrasions PSYCHIATRIC: Normal affect/mood, Course Vital Signs Vital signs: Vital Signs Temperature 98.2 F 10/16/24 11:58 Pulse Rate 80 10/16/24 11:58 Respiratory Rate 20 10/16/24 11:58 Blood Pressure 121/78 10/16/24 11:58 Pulse Oximetry 100 10/16/24 11:58 Oxygen Delivery Room Air 10/16/24 11:58 Temperature 98.2 F 10/16/24 11:58 Pulse Rate 80 10/16/24 11:58 Respiratory Rate 20 10/16/24 11:58 Blood Pressure 121/78 10/16/24 11:58 Pulse Oximetry 100 10/16/24 11:58 Oxygen Delivery Room Air 10/16/24 11:58 MDM - Eye Problem MDM Narrative Medical decision making narrative: 28 yo female presenting for visual disturbance and headache. PERRL. EOMI. Nonfocal neuro exam. Bedside pocus was performed of the bilateral eyes, no evidence of retinal detachment, vitreous detachment; normal optic nerve diameter. CT HEad showed no acute process. Patient was given toradol with improvement of her visual disturbance and her headache. 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 Patient will be given a referral to opthalmology for further evaluation. Patient was agreeable to this plan. Given strict return precautions. Differential Diagnosis Differential diagnosis: Likely acute iritis, glaucoma and other (migraine with aura, retinal detachment, vitreal detachment) Lab Data Labs: Lab Results 10/16/24 Range/Units 12:58 Urine Test Negative Discharge Plan Discharge Clinical Impression: Migraine Qualifiers: Migraine type: unspecified Status migrainosus presence: without status migrainosus Intractability: not intractable Qualified Code(s): G43.909 - Migraine, unspecified, not intractable, without status migrainosus Patient Disposition: Home Condition: Stable Instructions: Antibiotic Form, Migraine Headache (ED), Ocular Migraine (ED) Patient Language: Mongolian Prescriptions: No Action amlodipine 10 mg tablet PO Zepbound 15 mg/0.5 mL pen injector 15 mg subcut WEEKLY Qty: 2 0RF Follow-up/Referrals: [facility] [Outside] Emily Hayes NP [Primary Care Provider] - Stand Alone Forms: Work/School Release IP
[2024-10-16] MEDS: KETOROLAC 30 MG/ML VIAL (*BKC) IM (12:45)
[2024-10-16 13:09] LABS: Pregnancy On Board Control Positive
== END 2024-10-16 15:03 | disposition home or self-care (01) ==
PROVIDERS: Emergency Provider Student in an Organized Health Care Education/Training Program; PCP Nurse Practitioner
DX: G43.909 Migraine, unspecified, not intractable, without status migrainosus (principal); I10 Essential (primary) hypertension; Z87.891 Personal history of nicotine dependence
CPT/HCPCS: 70450; 81025; 96372; 99284; J1885